=== PATIENT | female | born 1945 | race Caucasian/White ===

== ENCOUNTER 2023-03-29 17:47 | Inpatient (IN) | payer MEDICARE, MEDICAID, SELFPAY ==
--- NOTE | 2023-03-29 18:59 | HO.PM.IMCN ---
History of Present Illness Data of Consult Service Date: 03/29/23 Primary Care Provider: Unknown Physician HPI Reason for consult: Admission H&P Pt is a 78-year-old female with a PMH significant for?HTN, HLD, hypothyroidism, insulin-dependent diabetes type 2, frequent UTIs, hx of Barbara-Chavez tears in 2018, dementia unspecified, schizoaffective disorder, and bipolar disorder who is admitted to [facility] for increasing agitation. According to caregiver patient has been banging her head and feet against the wall and been much more difficult to control or take care of recently. Medical consult for admission H&P. ?Patient is seen and evaluated in her bed. Patient appears agitated, using pressured speech, often speaking nonsensically, is and is alert and oriented to self only. Patient is unable to provide accurate HPI. Chart review shows that patient vomited when she was in the ED with concern of possible 1 or 2 episodes of coffee-ground emesis. Patient's H&H remained stable during her stay at the hospital. Review of Systems Review of Systems: Unable to obtain due to patient's mentation PMFSH Social History Advance Directives: No Advance Directives Information Provided: No Meds Allergies Allergy/AdvReac Type Severity Reaction Status Date / Time No Known Allergies Allergy Verified 03/29/23 18:39 Physical Exam Vital Signs and Narrative: Vital Signs: General: AOx1, in no acute distress Resp: CTA bilaterally CVS: S1, S2, RRR GI: +BS, NT, no distention Skin: No rash Neuro: Cranial nerves II-XII grossly intact bilaterally. Motor grossly intact bilaterally Extremities: No edema Psych: Appears agitated, with pressurized speech, sometimes speaking nonsensically Assessment and Plan (1) Routine history and physical examination of adult: Status: Acute Plan Pt is a 78-year-old female with a PMH significant for?HTN, HLD, hypothyroidism, insulin-dependent diabetes type 2, frequent UTIs, hx of Barbara-Chavez tears in 2018, dementia unspecified, schizoaffective disorder, and bipolar disorder who is admitted to [facility] for increasing agitation. According to caregiver patient has been banging her head and feet against the wall and been much more difficult to control or take care of recently. Medical consult for admission H&P. ?Patient is seen and evaluated in her bed. Patient appears agitated, using pressured speech, often speaking nonsensically, is and is alert and oriented to self only. Patient is unable to provide accurate HPI. Mood disorder Plan as per Psychiatry Question of coffee-ground emesis Patient experienced vomiting with possibility of 1-2 episodes of coffee-ground emesis during hospital stay Patient with history of Barbara-Chavez tear in 2018 H&H stable, no evidence of anemia or active upper GI bleed Continue PPI, anti emetics p.r.n. HLD Continue statin GERD Continue PPI Hypothyroidism Continue levothyroxine Thank you for allowing us to participate in the care of this patient. Signing off at this time. Please let us know if there are any acute complaints or questions. Time Spent With Patient Time: Total time managing care of this patient today ____ minutes.
--- NOTE | 2023-03-29 20:00 | PC.NURSE ---
Pt A&OX1, very confused and has disorganized thoughts. She is hyperverbal, has pressured speech and does not always make sense. Pt is restless and fidgety in the bed and currently flipping through a magazine. She is not able to focus on one topic and jumps from one topic to another. . The name Magdiel triggers her . Pt on ra, lungs are clear and VSS, abdomen is large and round, skin is intact. She has non-pitting stephanie lower ext edema. Pt can be resistive to care. She was incont of urine and did not respond well to donato care. No c/o pain or N/V. Pt has 1:1 sitter at bedside. bed in low position, safety measures maintained.
[2023-03-29 20:04] VITALS: BP 152/67; PULSE 94; RESP 20; TEMP 36.2; O2SAT 95
[2023-03-30] MEDS: Prazosin HCL 1 MG CAPSULE PO (00:34)
[2023-03-30] MEDS: QUEtiapine Fumarate 25 MG TABLET PO ×3 (00:34→21:51)
[2023-03-30] MEDS: Famotidine 20 MG TABLET PO ×2 (00:34→09:34)
[2023-03-30] MEDS: hydrOXYzine HCL 25 MG TABLET PO (00:44)
[2023-03-30] MEDS: traZODone HCL 50 MG TABLET PO ×2 (00:44→21:51)
[2023-03-30 09:24] LABS: Ammonia 36 umol/L (13-55)
[2023-03-30 09:35] LABS: Estimated Average Glucose 163 mg/dL; Hemoglobin A1c % 7.3 %
[2023-03-30 09:56] LABS: Cholesterol 143 mg/dL; HDL Cholesterol 61 mg/dL; LDL Cholesterol Calculated 65 mg/dl; Triglycerides 89 mg/dL
[2023-03-30] MEDS: Cholecalciferol (Vitamin D3) 25 MCG TABLET 50 MCG PO (09:57)
[2023-03-30] MEDS: Ascorbic Acid 500 MG TABLET PO (09:57)
[2023-03-30] MEDS: Docusate Sodium 100 MG CAPSULE PO (09:57)
[2023-03-30] MEDS: Atorvastatin Calcium 20 MG TABLET PO (09:57)
[2023-03-30 10:13] LABS: Free T4 (Free Thyroxine) 1.02 ng/dL (0.71-1.85); Thyroid Stimulating Hormone 1.85 uIU/mL (0.32-4.0)
[2023-03-30 10:59] LABS: Glucose, Whole Blood 174 mg/dL (60-115)
[2023-03-30] MEDS: metFORMIN HCl 850 MG TABLET PO (12:08)
--- NOTE | 2023-03-30 14:27 | P.HPPS_ITS ---
HPI Date of Service: 03/30/23 Chief Complaint: Schizoaffective Disorder Sources of Information: patient interviewed, chart reviewed and crisis/core team assessment reviewed HPI Subjective Notes: Whittaker Warning and Conditional Voluntary Healthcare Proxy: Yes Guardianship: Yes Medical Problems Affecting Mental Status: Yes Narrative: The patient is a 78-year-old female, with a long history of schizoaffective disorder bipolar type and other several medical comorbidities transfer from [address] due to agitation. According to the crisis assessment, the patient was brought to the emergency room from caregivers in the community since she was more agitated irritable nonsensical. Over the emergency room [facility], she was assessed and a full medical workout was done and she was found that she has a UTI. CT scan and other blood work came back negative. The patient was treated medically, reassessed by Psychiatry and since the patient was not at her baseline with agitation and nonsensical behaviors she was transferring to this facility for psychiatric stabilization. The patient has a guardian, a [facility] order another documents but at this moment we have not been able to for have available does papers. I assessed the patient at bed sign and she was naked covered with a blanket, the patient refused to wear any clothes and she was nonsensical, unable to provide information, with mild psychomotor agitation. The patient was unable to understand whittaker warning or any other statement. She was referred by to the medical team to continue medical workout. Past Psychiatric History: According to the chart, the patient carries a diagnosis of schizoaffective disorder bipolar type, she has a guardian, court ordered to receive antipsychotics that she has been in the hospital several times for psychiatric conditions. At this moment the patient is a poor historian able to provide any history. Medical Evaluation Reviewed: Yes [facility] Family History: Unable to assess Social History: The patient lives in the community with several caregivers, she is a guardian a court order to receive antipsychotics. Substance History: Unable to assess Trauma History: Unable to assess Diagnostics Vital Signs (24Hr): Vital Signs - 24 hr 03/29/23 20:04 Temperature 97.2 F Pulse Rate 94 Respiratory Rate 20 Blood Pressure 152/67 H Pulse Oximetry 95 Oxygen Delivery Method Room Air Labs Labs: Laboratory Results - last 48 hr 03/30/23 03/30/23 03/30/23 08:58 08:58 08:58 POC Glucose Estimat Average Glucose 163 Hemoglobin A1c % 7.3 Ammonia 36 Triglycerides 89 Cholesterol 143 LDL Cholesterol, Calc 65 HDL Cholesterol 61 TSH 1.85 Free T4 1.02 Valproic Acid 03/30/23 03/30/23 08:58 10:54 POC Glucose 174 H Estimat Average Glucose Hemoglobin A1c % Ammonia Triglycerides Cholesterol LDL Cholesterol, Calc HDL Cholesterol TSH Free T4 Valproic Acid 21.0 L Meds/Allergies Meds Home Medications Medication Instructions Recorded Confirmed Type Lactobacillus acidophilus PO DAILY 03/30/23 History Miralax 17 g PO DAILY constipation 03/30/23 03/30/23 History Tums 500 500 mg PO QID PRN Heartburn 03/30/23 03/30/23 History acetaminophen 500 mg PO Q6-8H PRN Fever Or Pain 03/30/23 03/30/23 History ascorbic acid (vitamin C) 500 mg PO BID supplement 03/30/23 03/30/23 History atorvastatin 20 tab PO DAILY 03/30/23 03/30/23 History cholecalciferol (vitamin D3) 2,000 units PO DAILY 03/30/23 03/30/23 History clonazepam 1 mg PO BEDTIME 03/30/23 03/30/23 History clonazepam 1 mg PO DAILY PRN Anxiety 03/30/23 03/30/23 History divalproex 500 mg PO BEDTIME 03/30/23 03/30/23 History docusate sodium 100 mg PO BID 03/30/23 03/30/23 History guaifenesin 200 mg PO Q4-5H PRN Cough 03/30/23 03/30/23 History levothyroxine 25 mcg PO 03/30/23 History metformin 850 mg PO DAILY 03/30/23 03/30/23 History methenamine hippurate 1 tab PO BID UTI 03/30/23 03/30/23 History terazosin 2 mg PO BEDTIME 03/30/23 03/30/23 History Allergies Allergies Allergy/AdvReac Type Severity Reaction Status Date / Time No Known Allergies Allergy Verified 03/29/23 18:39 Mental Status Exam Mental Status Exam Patient Appearance: Disheveled and Unkempt (On hospital gowns half naked since the patient is refusing to work clothes) Patient Orientation: Person Level of Consciousness: Awake, Disoriented and Restless Patient Behavior: Guarded and Restless Mood Description: Withdrawn Affect Description: Labile Patient Cognition Impaired: Yes Ability to Follow Directions: Poor Speech Pattern: Slurred and Impoverished Hallucinations: None Delusions: Paranoid Ideation and Bizarre Thought Process: Disoriented, Incoherent and Illogical Thought Content: positive for Poverty of Content, positive for Loose Associations and positive for Thought Blocking Judgement: Poor Assessment & Plan Assessment & Plan (1) Schizoaffective disorder, bipolar type: Status: Acute Code(s): F25.0 - Schizoaffective disorder, bipolar type (2) Neurodegenerative cognitive impairment: Status: Acute Code(s): G31.9 - Degenerative disease of nervous system, unspecified Plan The patient is an elderly female with a past history of schizoaffective disorder bipolar type, with the legal guardian a corporate receive antipsychotics in the community referred to the emergency room due to increased agitation and nonsensical behaviors. When she was in the emergency room of [facility] she was diagnosed with a UTI and treated with antibiotics. So far her medical workout came back within normal limits but she remains grossly psychotic and disorganized, unable to understand lab warning and at this moment we do not have the guardian paperwork for the court ordered to receive antipsychotics. Plan 1. Gather collateral information. 2. Continue with antipsychotics and other medications prescribed admitted for Hospital. I assume that there full feeling the court order for antipsychotics. 3. Continue with medical workout. 4. Reassessment with results. 5. One-to-one observation for safety Patient educated on: diagnosis and medication risk/benefits Informed Consent: does not understand Reason for continued inpatient stay Substantial Risk for: harm to self, harm to others, inability to function, rapid decompensation and med/psych decompensation Statement Statement: I have reviewed the history and physical and performed a pertinent examination on my patient. No changes have occurred unless specified. If the History and Physical was not performed prior to admission, the Hospitalist's service will be consulted for completing the admission physical. Time Spent With Patient Time: Total time managing care of this patient today __45__ minutes.
[2023-03-30] MEDS: Divalproex Sodium ER 500 MG TAB.ER.24H PO (21:51)
[2023-03-30] MEDS: Doxazosin Mesylate 2 MG TABLET PO (21:51)
[2023-03-30] MEDS: clonazePAM 1 MG TABLET PO (21:51)
[2023-03-31 08:14] LABS: Glucose, Whole Blood 215 mg/dL (60-115)
[2023-03-31 08:15] VITALS: BP 118/87; PULSE 114; RESP 20; TEMP 36.1; O2SAT 94
[2023-03-31] MEDS: Cholecalciferol (Vitamin D3) 25 MCG TABLET 50 MCG PO (08:15)
[2023-03-31] MEDS: Docusate Sodium 100 MG CAPSULE PO ×2 (08:15→21:05)
[2023-03-31] MEDS: metFORMIN HCl 850 MG TABLET PO (08:15)
[2023-03-31] MEDS: Levothyroxine Sodium 25 MCG TABLET PO (08:15)
[2023-03-31] MEDS: Famotidine 20 MG TABLET PO ×2 (08:16→21:04)
[2023-03-31] MEDS: QUEtiapine Fumarate 25 MG TABLET PO (08:16)
[2023-03-31] MEDS: Atorvastatin Calcium 20 MG TABLET PO (08:16)
[2023-03-31] MEDS: Ascorbic Acid 500 MG TABLET PO ×2 (08:16→21:04)
[2023-03-31] MEDS: polyethylene glycoL 3350 17 GM POWD.PACK PO (08:23)
[2023-03-31 08:56] LABS: Estimated Glomerular Filt Rate > 60
--- NOTE | 2023-03-31 09:27 | P.PNPSI_ITS ---
Subjective Subjective Date of Service: 03/31/23 Reason For Visit: Schizoaffective Disorder Subjective Notes: Section 12B Healthcare Proxy: Yes Guardianship: Yes Interim History: The nursing staff reported the patient had been incontinent of urine and feces, she had been nonsensical. DDS is involved and they will contact as pretty soon. Today on interview the patient was grossly confused unable to elaborate a clear it statement. I will try to gather more collateral information in getting the Che order and the guardianship paperwork. At this moment, I do not have information about what are the approved antipsychotics but apparently, she was taking over 600 mg of Seroquel daiily. I will increase it up to 100 mg po tid.. Mental Status Exam Mental Status Exam Patient Appearance: Disheveled, Inappropriate and Unkempt Patient Orientation: Person and Situation Level of Consciousness: Awake and Appropriate Patient Behavior: Passive and Restless Mood Description: Apprehensive Affect Description: Labile Patient Cognition Impaired: Yes Ability to Follow Directions: Fair Speech Pattern: Impoverished, Difficulty Finding Words and Garbled Hallucinations: None Delusions: Ideas of Reference Thought Process: Disoriented, Incoherent and Illogical Thought Content: positive for Poverty of Content, positive for Loose Associations and positive for Thought Blocking Judgement: Fair Diagnostics Labs 03/31/23 08:33 Labs: Laboratory Results - last 48 hr 03/30/23 03/30/23 03/30/23 08:58 08:58 08:58 Creatinine Estim Creat Clear Calc Estimated GFR POC Glucose Estimat Average Glucose 163 Hemoglobin A1c % 7.3 Ammonia 36 Triglycerides 89 Cholesterol 143 LDL Cholesterol, Calc 65 HDL Cholesterol 61 TSH 1.85 Free T4 1.02 Valproic Acid 03/30/23 03/30/23 03/31/23 08:58 10:54 08:09 Creatinine Estim Creat Clear Calc Estimated GFR POC Glucose 174 H 215 H Estimat Average Glucose Hemoglobin A1c % Ammonia Triglycerides Cholesterol LDL Cholesterol, Calc HDL Cholesterol TSH Free T4 Valproic Acid 21.0 L 03/31/23 08:33 Creatinine 0.70 Estim Creat Clear Calc TNP Estimated GFR > 60 POC Glucose Estimat Average Glucose Hemoglobin A1c % Ammonia Triglycerides Cholesterol LDL Cholesterol, Calc HDL Cholesterol TSH Free T4 Valproic Acid Medications Medications Current Medications Acetaminophen (Acetaminophen 325 Mg Tablet) 650 mg PO Q6H PRN PRN Reason: Headache/Pain Mild Scale (1-3) Al Hydroxide/Mg Hydroxide (Magnesium Hydrox/Alum Hydrox 30 Ml Oral.Susp) 30 ml PO Q6H PRN PRN Reason: Heartburn/Nausea Ascorbic Acid (Ascorbic Acid 500 Mg Tablet) 500 mg PO BID [facility] Last Admin: 03/31/23 08:16 Dose: 500 mg Atorvastatin Calcium (Atorvastatin Calcium 20 Mg Tablet) 20 mg PO DAILY [facility] Last Admin: 03/31/23 08:16 Dose: 20 mg Calcium Carbonate (Calcium Carbonate 750 Mg Tab.Chew) 500 mg PO QID PRN PRN Reason: Heartburn Clonazepam (Clonazepam 1 Mg Tablet) 1 mg PO BEDTIME [facility] Last Admin: 03/30/23 21:51 Dose: 1 mg Clonazepam (Clonazepam 1 Mg Tablet) 1 mg PO DAILY PRN PRN Reason: Anxiety Divalproex Sodium (Divalproex Sodium Er 500 Mg Tab.Er.24h) 500 mg PO BEDTIME [facility] Last Admin: 03/30/23 21:51 Dose: 500 mg Docusate Sodium (Docusate Sodium 100 Mg Capsule) 100 mg PO BID [facility] Last Admin: 03/31/23 08:15 Dose: 100 mg Doxazosin Mesylate (Doxazosin Mesylate 2 Mg Tablet) 2 mg PO BEDTIME [facility] Last Admin: 03/30/23 21:51 Dose: 2 mg Famotidine (Famotidine 20 Mg Tablet) 20 mg PO BID [facility] Last Admin: 03/31/23 08:16 Dose: 20 mg Guaifenesin (Guaifenesin 200 Mg/10 Ml 10 Ml Liquid) 10 ml PO Q4H PRN PRN Reason: Cough Hydroxyzine HCl (Hydroxyzine Hcl 25 Mg Tablet) 25 mg PO Q6H PRN PRN Reason: Anxiety Last Admin: 03/30/23 00:44 Dose: 25 mg Levothyroxine Sodium (Levothyroxine Sodium 25 Mcg Tablet) 25 mcg PO DAILY@0600 [facility] Last Admin: 03/31/23 08:15 Dose: 25 mcg Magnesium Hydroxide (Milk Of Magnesia 30 Ml Oral.Susp) 30 ml PO DAILY PRN PRN Reason: Constipation Metformin HCl (Metformin Hcl 850 Mg Tablet) 850 mg PO DAILY [facility] Last Admin: 03/31/23 08:15 Dose: 850 mg Non-Formulary Medication (Methenamine Hippurate) 1 tab PO BID [facility] Polyethylene Glycol (Polyethylene Glycol 3350 17 Gm Powd.Pack) 17 gm PO DAILY [facility] Last Admin: 03/31/23 08:23 Dose: 17 gm Quetiapine Fumarate (Quetiapine Fumarate 25 Mg Tablet) 25 mg PO BID [facility] Last Admin: 03/31/23 08:16 Dose: 25 mg Trazodone HCl (Trazodone Hcl 50 Mg Tablet) 50 mg PO BEDTIME MRX1 PRN PRN Reason: Insomnia Last Admin: 03/30/23 21:51 Dose: 50 mg Vitamin D (Cholecalciferol (Vitamin D3) 25 Mcg Tablet) 50 mcg PO DAILY [facility] Last Admin: 03/31/23 08:15 Dose: 50 mcg Allergies Allergies Allergy/AdvReac Type Severity Reaction Status Date / Time No Known Allergies Allergy Verified 03/29/23 18:39 Assessment & Plan Assessment & Plan (1) Schizoaffective disorder, bipolar type: Status: Acute Code(s): F25.0 - Schizoaffective disorder, bipolar type (2) Neurodegenerative cognitive impairment: Status: Acute Code(s): G31.9 - Degenerative disease of nervous system, unspecified Plan The patient is an elderly female with a past history of schizoaffective disorder bipolar type, with the legal guardian a corporate receive antipsychotics in the community referred to the emergency room due to increased agitation and nonsensical behaviors. When she was in the emergency room of [facility] she was diagnosed with a UTI and treated with antibiotics. So far her medical workout came back within normal limits but she remains grossly psychotic and disorganized, unable to understand lab warning and at this moment we do not have the guardian paperwork for the court ordered to r eceive antipsychotics. Plan 1. Gather collateral information. 2. Continue with antipsychotics and other medications prescribed admitted for Hospital. I assume that there full feeling the court order for antipsychotics. 3. Continue with medical workout. 4. Reassessment with results. 5. One-to-one observation for safety 6. Increase Seroquel up to 100 mg po tid. Reason for continued inpatient stay Substantial Risk for: inability to function, rapid decompensation and med/psych decompensation Time Spent With Patient Time: Total time managing care of this patient today __20__ minutes.
[2023-03-31] MEDS: QUEtiapine Fumarate 100 MG TABLET PO ×2 (14:19→21:05)
[2023-03-31 18:00] VITALS: BP 143/78; PULSE 110; RESP 16; TEMP 36.3; O2SAT 97
[2023-03-31] MEDS: clonazePAM 1 MG TABLET PO (21:04)
[2023-03-31] MEDS: Divalproex Sodium ER 500 MG TAB.ER.24H PO (21:04)
[2023-03-31] MEDS: Doxazosin Mesylate 2 MG TABLET PO (21:05)
[2023-03-31] MEDS: traZODone HCL 50 MG TABLET PO (21:05)
[2023-03-31] MEDS: Acetaminophen 325 MG TABLET 650 MG PO (21:05)
[2023-03-31] MEDS: hydrOXYzine HCL 25 MG TABLET PO (21:05)
[2023-03-31 22:24] LABS: Glucose, Whole Blood 199 mg/dL (60-115)
[2023-04-01] MEDS: Levothyroxine Sodium 25 MCG TABLET PO (05:36)
[2023-04-01 08:41] VITALS: BP 124/63; PULSE 93; RESP 18; TEMP 36.4; O2SAT 95
[2023-04-01] MEDS: QUEtiapine Fumarate 100 MG TABLET PO ×3 (09:19→21:06)
[2023-04-01] MEDS: Famotidine 20 MG TABLET PO ×2 (09:19→21:05)
[2023-04-01] MEDS: metFORMIN HCl 850 MG TABLET PO (09:19)
[2023-04-01] MEDS: Cholecalciferol (Vitamin D3) 25 MCG TABLET 50 MCG PO (09:19)
[2023-04-01] MEDS: clonazePAM 1 MG TABLET PO ×2 (09:19→21:06)
[2023-04-01] MEDS: Atorvastatin Calcium 20 MG TABLET PO (09:19)
[2023-04-01] MEDS: Docusate Sodium 100 MG CAPSULE PO ×2 (09:19→21:06)
[2023-04-01] MEDS: hydrOXYzine HCL 25 MG TABLET PO ×2 (09:19→21:06)
[2023-04-01] MEDS: Ascorbic Acid 500 MG TABLET PO ×2 (09:19→21:06)
[2023-04-01] MEDS: polyethylene glycoL 3350 17 GM POWD.PACK PO (09:22)
--- NOTE | 2023-04-01 13:30 | HO.PSYCHPN ---
Subjective Subjective Date of Service: 04/01/23 Reason For Visit: Schizoaffective Disorder Subjective Notes: Section 12B (expires 04/03/23) Guardianship: Yes Interim History: Met with patient. Noted Che order and guardianship. Also noted Section 12 which expires on 04/03/2023. Discussed with Nursing. Has been restless impulsive and therefore on one-to-one observation. Slept okay. Accepting medications. With senior technical writer is difficult to make out but reports she wants to go home. States she has been here for a very long time. No clear idea of circumstances of admission, time frame or place. No evidence of depression SI or HI. Medication Compliance: Yes Side effects from medications: No Attending Groups: No Review of Systems Acute medical concerns: No Review of Systems Review of Systems Yes Unobtainable due to mental status Mental Status Exam Mental Status Exam Patient Appearance: Disheveled, Inappropriate and Unkempt Patient Orientation: Person and Situation Level of Consciousness: Awake and Appropriate Patient Behavior: Passive and Restless Mood Description: Apprehensive Affect Description: Labile Patient Cognition Impaired: Yes Ability to Follow Directions: Fair Speech Pattern: Impoverished, Difficulty Finding Words and Garbled Hallucinations: None Thought Process: Disoriented, Incoherent and Illogical Thought Content: positive for Poverty of Content, positive for Loose Associations and positive for Thought Blocking Abnormal Motor Activity Signs and Symptoms: Restlessness ( Appears to have baseline arm movements over /almost tic-like) Judgement: Fair Diagnostics Vital Signs (24Hr): Vital Signs - 24 hr 03/31/23 18:00 04/01/23 08:41 Temperature 97.3 F 97.6 F Pulse Rate 110 H 93 Respiratory Rate 16 18 Blood Pressure 143/78 H 124/63 Pulse Oximetry 97 95 Oxygen Delivery Method Room Air Room Air Labs 03/31/23 08:33 Labs: Laboratory Results - last 48 hr 03/31/23 03/31/23 03/31/23 08:09 08:33 22:18 Creatinine 0.70 Estim Creat Clear Calc TNP Estimated GFR > 60 POC Glucose 215 H 199 H Medications Medications Current Medications Acetaminophen (Acetaminophen 325 Mg Tablet) 650 mg PO Q6H PRN PRN Reason: Headache/Pain Mild Scale (1-3) Last Admin: 03/31/23 21:05 Dose: 650 mg Al Hydroxide/Mg Hydroxide (Magnesium Hydrox/Alum Hydrox 30 Ml Oral.Susp) 30 ml PO Q6H PRN PRN Reason: Heartburn/Nausea Ascorbic Acid (Ascorbic Acid 500 Mg Tablet) 500 mg PO BID [facility] Last Admin: 04/01/23 09:19 Dose: 500 mg Atorvastatin Calcium (Atorvastatin Calcium 20 Mg Tablet) 20 mg PO DAILY [facility] Last Admin: 04/01/23 09:19 Dose: 20 mg Calcium Carbonate (Calcium Carbonate 750 Mg Tab.Chew) 500 mg PO QID PRN PRN Reason: Heartburn Clonazepam (Clonazepam 1 Mg Tablet) 1 mg PO BEDTIME [facility] Last Admin: 03/31/23 21:04 Dose: 1 mg Clonazepam (Clonazepam 1 Mg Tablet) 1 mg PO DAILY PRN PRN Reason: Anxiety Last Admin: 04/01/23 09:19 Dose: 1 mg Divalproex Sodium (Divalproex Sodium Er 500 Mg Tab.Er.24h) 500 mg PO BEDTIME [facility] Last Admin: 03/31/23 21:04 Dose: 500 mg Docusate Sodium (Docusate Sodium 100 Mg Capsule) 100 mg PO BID [facility] Last Admin: 04/01/23 09:19 Dose: 100 mg Doxazosin Mesylate (Doxazosin Mesylate 2 Mg Tablet) 2 mg PO BEDTIME [facility] Last Admin: 03/31/23 21:05 Dose: 2 mg Famotidine (Famotidine 20 Mg Tablet) 20 mg PO BID [facility] Last Admin: 04/01/23 09:19 Dose: 20 mg Guaifenesin (Guaifenesin 200 Mg/10 Ml 10 Ml Liquid) 10 ml PO Q4H PRN PRN Reason: Cough Hydroxyzine HCl (Hydroxyzine Hcl 25 Mg Tablet) 25 mg PO Q6H PRN PRN Reason: Anxiety Last Admin: 04/01/23 09:19 Dose: 25 mg Levothyroxine Sodium (Levothyroxine Sodium 25 Mcg Tablet) 25 mcg PO DAILY@0600 [facility] Last Admin: 04/01/23 05:36 Dose: 25 mcg Magnesium Hydroxide (Milk Of Magnesia 30 Ml Oral.Susp) 30 ml PO DAILY PRN PRN Reason: Constipation Metformin HCl (Metformin Hcl 850 Mg Tablet) 850 mg PO DAILY [facility] Last Admin: 04/01/23 09:19 Dose: 850 mg Polyethylene Glycol (Polyethylene Glycol 3350 17 Gm Powd.Pack) 17 gm PO DAILY [facility] Last Admin: 04/01/23 09:22 Dose: 17 gm Quetiapine Fumarate (Quetiapine Fumarate 100 Mg Tablet) 100 mg PO TID [facility] Last Admin: 04/01/23 09:19 Dose: 100 mg Trazodone HCl (Trazodone Hcl 50 Mg Tablet) 50 mg PO BEDTIME MRX1 PRN PRN Reason: Insomnia Last Admin: 03/31/23 21:05 Dose: 50 mg Vitamin D (Cholecalciferol (Vitamin D3) 25 Mcg Tablet) 50 mcg PO DAILY [facility] Last Admin: 04/01/23 09:19 Dose: 50 mcg Allergies Allergies Allergy/AdvReac Type Severity Reaction Status Date / Time No Known Allergies Allergy Verified 03/29/23 18:39 Assessment & Plan Assessment & Plan (1) Schizoaffective disorder, bipolar type: Status: Acute Code(s): F25.0 - Schizoaffective disorder, bipolar type (2) Neurodegenerative cognitive impairment: Status: Acute Code(s): G31.9 - Degenerative disease of nervous system, unspecified Plan The patient is an elderly female with a past history of schizoaffective disorder bipolar type, with the legal guardian a corporate receive antipsychotics in the community referred to the emergency room due to increased agitation and nonsensical behaviors. When she was in the emergency room of [facility] she was diagnosed with a UTI and treated with antibiotics. So far her medical workout came back within normal limits but she remains grossly psychotic and disorganized, unable to understand lab warning and at this moment we do not have the guardian paperwork for the court ordered to receive antipsychotics. Plan 1. Gather collateral information. 2. Continue with antipsychotics and other medications prescribed admitted for Hospital. I assume that there full feeling the court order for antipsychotics. 3. Continue with medical workout. 4. Reassessment with results. 5. One-to-one observation for safety 6. Increase Seroquel up to 100 mg po tid. 04/01/2023: No changes to current plan. Reason for continued inpatient stay Substantial Risk for: inability to function Time Spent With Patient Time: Total time managing care of this patient today ____ minutes.
[2023-04-01 18:00] VITALS: BP 150/75; PULSE 86; RESP 18; TEMP 36.8; O2SAT 97
[2023-04-01] MEDS: Divalproex Sodium ER 500 MG TAB.ER.24H PO (21:06)
[2023-04-01] MEDS: Doxazosin Mesylate 2 MG TABLET PO (21:06)
[2023-04-01] MEDS: Acetaminophen 325 MG TABLET 650 MG PO (21:06)
[2023-04-02] MEDS: Levothyroxine Sodium 25 MCG TABLET PO (05:27)
[2023-04-02 08:46] VITALS: BP 132/63; PULSE 80; RESP 20; TEMP 35.8; O2SAT 95
[2023-04-02] MEDS: QUEtiapine Fumarate 100 MG TABLET PO ×3 (09:25→21:12)
[2023-04-02] MEDS: Famotidine 20 MG TABLET PO ×2 (09:25→21:12)
[2023-04-02] MEDS: clonazePAM 1 MG TABLET PO ×2 (09:25→21:11)
[2023-04-02] MEDS: Ascorbic Acid 500 MG TABLET PO ×2 (09:25→21:11)
[2023-04-02] MEDS: Atorvastatin Calcium 20 MG TABLET PO (09:25)
[2023-04-02] MEDS: Cholecalciferol (Vitamin D3) 25 MCG TABLET 50 MCG PO (09:25)
[2023-04-02] MEDS: hydrOXYzine HCL 25 MG TABLET PO (09:26)
[2023-04-02] MEDS: polyethylene glycoL 3350 17 GM POWD.PACK PO (09:26)
[2023-04-02] MEDS: Docusate Sodium 100 MG CAPSULE PO ×2 (09:26→21:11)
[2023-04-02] MEDS: metFORMIN HCl 850 MG TABLET PO (09:26)
--- NOTE | 2023-04-02 10:50 | PC.NURSE ---
Addendum entered by Tiera Blanco RN 04/02/23 12:26: Increased POCs reported to clinical coordinator SARIKA Lemon and will pass along to primary MD in teams tomorrow. Original Note: Dr. Parker notified [address] Parker requested that this automotive service writer pass along to primary team tomorrow. Will report to clinical coordinator SARIKA Lemon to notify primary MD in teams tomorrow.
--- NOTE | 2023-04-02 12:25 | HO.PSYCHPN ---
Subjective Subjective Date of Service: 04/02/23 Reason For Visit: Schizoaffective Disorder Subjective Notes: Section 12B Medical Problems Affecting Mental Status: No Interim History: Met with patient. Noted [place] order and guardianship. Also noted Section 12 which expires on 04/03/2023. Discussed with Nursing. Less restless and less movements. Slept better. Accepting medications. With keno writer/runner is difficult to make out but eager to go home. Watching Mass on TV. No evidence of depression SI or HI. Medication Compliance: Yes Side effects from medications: No Attending Groups: Intermittent Review of Systems Acute medical concerns: No Review of Systems Review of Systems Yes Unobtainable due to mental status Mental Status Exam Mental Status Exam Patient Appearance: Disheveled, Inappropriate and Unkempt Patient Orientation: Person and Situation Level of Consciousness: Awake and Appropriate Patient Behavior: Passive and Restless Mood Description: Apprehensive Affect Description: Labile Patient Cognition Impaired: Yes Ability to Follow Directions: Fair Speech Pattern: Impoverished, Difficulty Finding Words and Garbled Diagnostics Vital Signs (24Hr): Vital Signs - 24 hr 04/01/23 18:00 04/02/23 08:46 Temperature 98.3 F 96.5 F L Pulse Rate 86 80 Respiratory Rate 18 20 Blood Pressure 150/75 H 132/63 Pulse Oximetry 97 95 Oxygen Delivery Method Room Air Room Air Labs 03/31/23 08:33 Labs: Laboratory Results - last 48 hr 03/31/23 04/01/23 04/02/23 22:18 20:00 07:46 POC Glucose 199 H 285 H 246 H Medications Medications Current Medications Acetaminophen (Acetaminophen 325 Mg Tablet) 650 mg PO Q6H PRN PRN Reason: Headache/Pain Mild Scale (1-3) Last Admin: 04/01/23 21:06 Dose: 650 mg Al Hydroxide/Mg Hydroxide (Magnesium Hydrox/Alum Hydrox 30 Ml Oral.Susp) 30 ml PO Q6H PRN PRN Reason: Heartburn/Nausea Ascorbic Acid (Ascorbic Acid 500 Mg Tablet) 500 mg PO BID [facility] Last Admin: 04/02/23 09:25 Dose: 500 mg Atorvastatin Calcium (Atorvastatin Calcium 20 Mg Tablet) 20 mg PO DAILY [facility] Last Admin: 04/02/23 09:25 Dose: 20 mg Calcium Carbonate (Calcium Carbonate 750 Mg Tab.Chew) 500 mg PO QID PRN PRN Reason: Heartburn Clonazepam (Clonazepam 1 Mg Tablet) 1 mg PO BEDTIME [facility] Last Admin: 04/01/23 21:06 Dose: 1 mg Clonazepam (Clonazepam 1 Mg Tablet) 1 mg PO DAILY PRN PRN Reason: Anxiety Last Admin: 04/02/23 09:25 Dose: 1 mg Divalproex Sodium (Divalproex Sodium Er 500 Mg Tab.Er.24h) 500 mg PO BEDTIME [facility] Last Admin: 04/01/23 21:06 Dose: 500 mg Docusate Sodium (Docusate Sodium 100 Mg Capsule) 100 mg PO BID [facility] Last Admin: 04/02/23 09:26 Dose: 100 mg Doxazosin Mesylate (Doxazosin Mesylate 2 Mg Tablet) 2 mg PO BEDTIME [facility] Last Admin: 04/01/23 21:06 Dose: 2 mg Famotidine (Famotidine 20 Mg Tablet) 20 mg PO BID [facility] Last Admin: 04/02/23 09:25 Dose: 20 mg Guaifenesin (Guaifenesin 200 Mg/10 Ml 10 Ml Liquid) 10 ml PO Q4H PRN PRN Reason: Cough Hydroxyzine HCl (Hydroxyzine Hcl 25 Mg Tablet) 25 mg PO Q6H PRN PRN Reason: Anxiety Last Admin: 04/02/23 09:26 Dose: 25 mg Levothyroxine Sodium (Levothyroxine Sodium 25 Mcg Tablet) 25 mcg PO DAILY@0600 [facility] Last Admin: 04/02/23 05:27 Dose: 25 mcg Magnesium Hydroxide (Milk Of Magnesia 30 Ml Oral.Susp) 30 ml PO DAILY PRN PRN Reason: Constipation Metformin HCl (Metformin Hcl 850 Mg Tablet) 850 mg PO DAILY [facility] Last Admin: 04/02/23 09:26 Dose: 850 mg Polyethylene Glycol (Polyethylene Glycol 3350 17 Gm Powd.Pack) 17 gm PO DAILY [facility] Last Admin: 04/02/23 09:26 Dose: 17 gm Quetiapine Fumarate (Quetiapine Fumarate 100 Mg Tablet) 100 mg PO TID [facility] Last Admin: 04/02/23 09:25 Dose: 100 mg Trazodone HCl (Trazodone Hcl 50 Mg Tablet) 50 mg PO BEDTIME [facility]X1 PRN PRN Reason: Insomnia Last Admin: 03/31/23 21:05 Dose: 50 mg Vitamin D (Cholecalciferol (Vitamin D3) 25 Mcg Tablet) 50 mcg PO DAILY [facility] Last Admin: 04/02/23 09:25 Dose: 50 mcg Allergies Allergies Allergy/AdvReac Type Severity Reaction Status Date / Time No Known Allergies Allergy Verified 03/29/23 18:39 Assessment & Plan Assessment & Plan (1) Schizoaffective disorder, bipolar type: Status: Acute Code(s): F25.0 - Schizoaffective disorder, bipolar type (2) Neurodegenerative cognitive impairment: Status: Acute Code(s): G31.9 - Degenerative disease of nervous system, unspecified Plan The patient is an elderly female with a past history of schizoaffective disorder bipolar type, with the legal guardian a corporate receive antipsychotics in the community referred to the emergency room due to increased agitation and nonsensical behaviors. When she was in the emergency room of [facility] she was diagnosed with a UTI and treated with antibiotics. So far her medical workout came back within normal limits but she remains grossly psychotic and disorganized, unable to understand lab warning and at this moment we do not have the guardian paperwork for the court ordered to receive antipsychotics. Plan 1. Gather collateral information. 2. Continue with antipsychotics and other medications prescribed admitted for Hospital. I assume that there full feeling the court order for antipsychotics. 3. Continue with medical workout. 4. Reassessment with results. 5. One-to-one observation for safety 6. Increase Seroquel up to 100 mg po tid. 04/02/2023: No changes to current plan. Reason for continued inpatient stay Substantial Risk for: inability to function Time Spent With Patient Time: Total time managing care of this patient today ____ minutes.
--- NOTE | 2023-04-02 17:21 | PC.NURSE ---
Poppy was noted to have significant decrease in psychomotor agitation and decrease in impulsivity. Dr. Parker notified and 1:1 continuous observation changed to five minute checks. Poppy likes Ensure however has hx of DM II, dietary order placed to determine appropriate supplements (? Glucerna). Poppy has been drinking Ensure with meals.
[2023-04-02 18:00] VITALS: BP 151/66; PULSE 88; RESP 18; TEMP 36.7; O2SAT 97
[2023-04-02] MEDS: Divalproex Sodium ER 500 MG TAB.ER.24H PO (21:11)
[2023-04-02] MEDS: Doxazosin Mesylate 2 MG TABLET PO (21:12)
[2023-04-03] MEDS: Levothyroxine Sodium 25 MCG TABLET PO (05:42)
[2023-04-03 08:20] VITALS: BP 144/61; PULSE 84; RESP 18; TEMP 36.2; O2SAT 96
[2023-04-03] MEDS: Atorvastatin Calcium 20 MG TABLET PO (09:02)
[2023-04-03] MEDS: Cholecalciferol (Vitamin D3) 25 MCG TABLET 50 MCG PO (09:02)
[2023-04-03] MEDS: Famotidine 20 MG TABLET PO ×2 (09:02→20:51)
[2023-04-03] MEDS: Ascorbic Acid 500 MG TABLET PO ×2 (09:03→20:51)
[2023-04-03] MEDS: Docusate Sodium 100 MG CAPSULE PO ×2 (09:03→20:52)
[2023-04-03] MEDS: metFORMIN HCl 850 MG TABLET PO (09:04)
[2023-04-03] MEDS: polyethylene glycoL 3350 17 GM POWD.PACK PO (09:04)
--- NOTE | 2023-04-03 12:16 | HO.PSYCHPN ---
Subjective Subjective Date of Service: 04/03/23 Reason For Visit: Schizoaffective Disorder Subjective Notes: Section 7 and Section 8 Interim History: The nursing staff reported the patient slept 8 hours, she had been fully compliant with treatment. At this moment she is on 5 minutes checks since the patient was agitated. The social service director reported that her court ordered for treatment has but we need to filed for Section 7 and 8 since she is unable to sign by herself. We will try to gather more collateral information such as her guardianship and other legal paperwork. On interview the patient is pleasantly confused, easily redirectable. We are increasing his Seroquel up to 100 mg p.o. b.i.d. and 200 mg p.o. q.h.s.. According to records she was on over 600 mg a day. Mental Status Exam Mental Status Exam Patient Appearance: Well Grooomed Patient Orientation: Person Level of Consciousness: Awake and Appropriate Patient Behavior: Guarded and Passive Mood Description: Withdrawn Affect Description: Constricted Patient Cognition Impaired: Yes Ability to Follow Directions: Fair Speech Pattern: Clear Hallucinations: None Delusions: Paranoid Ideation Thought Process: Racing and Distracted Thought Content: positive for [place] and positive for Thought Blocking Judgement: Poor Diagnostics Vital Signs (24Hr): Vital Signs - 24 hr 04/02/23 18:00 04/03/23 08:20 Temperature 98.1 F 97.2 F Pulse Rate 88 84 Respiratory Rate 18 18 Blood Pressure 151/66 H 144/61 H Pulse Oximetry 97 96 Oxygen Delivery Method Room Air Room Air Labs 03/31/23 08:33 Labs: Laboratory Results - last 48 hr 04/01/23 04/02/23 04/02/23 20:00 07:46 21:07 POC Glucose 285 H 246 H 294 H 04/03/23 08:01 POC Glucose 278 H Medications Medications Current Medications Acetaminophen (Acetaminophen 325 Mg Tablet) 650 mg PO Q6H PRN PRN Reason: Headache/Pain Mild Scale (1-3) Last Admin: 04/01/23 21:06 Dose: 650 mg Al Hydroxide/Mg Hydroxide (Magnesium Hydrox/Alum Hydrox 30 Ml Oral.Susp) 30 ml PO Q6H PRN PRN Reason: Heartburn/Nausea Ascorbic Acid (Ascorbic Acid 500 Mg Tablet) 500 mg PO BID [facility] Last Admin: 04/03/23 09:03 Dose: 500 mg Atorvastatin Calcium (Atorvastatin Calcium 20 Mg Tablet) 20 mg PO DAILY [facility] Last Admin: 04/03/23 09:02 Dose: 20 mg Calcium Carbonate (Calcium Carbonate 750 Mg Tab.Chew) 500 mg PO QID PRN PRN Reason: Heartburn Clonazepam (Clonazepam 1 Mg Tablet) 1 mg PO BEDTIME [facility] Last Admin: 04/02/23 21:11 Dose: 1 mg Clonazepam (Clonazepam 1 Mg Tablet) 1 mg PO DAILY PRN PRN Reason: Anxiety Last Admin: 04/02/23 09:25 Dose: 1 mg Divalproex Sodium (Divalproex Sodium Er 500 Mg Tab.Er.24h) 500 mg PO BEDTIME [facility] Last Admin: 04/02/23 21:11 Dose: 500 mg Docusate Sodium (Docusate Sodium 100 Mg Capsule) 100 mg PO BID [facility] Last Admin: 04/03/23 09:03 Dose: 100 mg Doxazosin Mesylate (Doxazosin Mesylate 2 Mg Tablet) 2 mg PO BEDTIME [facility] Last Admin: 04/02/23 21:12 Dose: 2 mg Famotidine (Famotidine 20 Mg Tablet) 20 mg PO BID [facility] Last Admin: 04/03/23 09:02 Dose: 20 mg Guaifenesin (Guaifenesin 200 Mg/10 Ml 10 Ml Liquid) 10 ml PO Q4H PRN PRN Reason: Cough Hydroxyzine HCl (Hydroxyzine Hcl 25 Mg Tablet) 25 mg PO Q6H PRN PRN Reason: Anxiety Last Admin: 04/02/23 09:26 Dose: 25 mg Levothyroxine Sodium (Levothyroxine Sodium 25 Mcg Tablet) 25 mcg PO DAILY@0600 [facility] Last Admin: 04/03/23 05:42 Dose: 25 mcg Magnesium Hydroxide (Milk Of Magnesia 30 Ml Oral.Susp) 30 ml PO DAILY PRN PRN Reason: Constipation Metformin HCl (Metformin Hcl 850 Mg Tablet) 850 mg PO DAILY [facility] Last Admin: 04/03/23 09:04 Dose: 850 mg Polyethylene Glycol (Polyethylene Glycol 3350 17 Gm Powd.Pack) 17 gm PO DAILY [facility] Last Admin: 04/03/23 09:04 Dose: 17 gm Quetiapine Fumarate (Quetiapine Fumarate 100 Mg Tablet) 100 mg PO BID@0800,1700 [facility] Quetiapine Fumarate (Quetiapine Fumarate 200 Mg Tablet) 200 mg PO BEDTIME [facility] Trazodone HCl (Trazodone Hcl 50 Mg Tablet) 50 mg PO BEDTIME MRX1 PRN PRN Reason: Insomnia Last Admin: 03/31/23 21:05 Dose: 50 mg Vitamin D (Cholecalciferol (Vitamin D3) 25 Mcg Tablet) 50 mcg PO DAILY [facility] Last Admin: 04/03/23 09:02 Dose: 50 mcg Allergies Allergies Allergy/AdvReac Type Severity Reaction Status Date / Time No Known Allergies Allergy Verified 03/29/23 18:39 Assessment & Plan Assessment & Plan (1) Schizoaffective disorder, bipolar type: Status: Acute Code(s): F25.0 - Schizoaffective disorder, bipolar type (2) Neurodegenerative cognitive impairment: Status: Acute Code(s): G31.9 - Degenerative disease of nervous system, unspecified Plan The patient is an elderly female with a past history of schizoaffective disorder bipolar type, with the legal guardian a corporate receive antipsychotics in the community referred to the emergency room due to increased agitation and nonsensical behaviors. When she was in the emergency room of [facility] she was diagnosed with a UTI and treated with antibiotics. So far her medical workout came back within normal limits but she remains grossly psychotic and disorganized, unable to understand lab warning and at this moment we do not have the guardian paperwork for the court ordered to receive antipsychotics. Plan 1. Gather collateral information. 2. Continue with antipsychotics and other medications prescribed admitted for Hospital. I assume that there full feeling the court order for antipsychotics. 3. Continue with medical workout. 4. Reassessment with results. 5. One-to-one observation for safety 6. Increase Seroquel up to 100 mg po tid on March 30. Seroquel has been increased on April 03 up to 100 mg p.o. b.i.d. and 200 mg p.o. q.h.s.. Reason for continued inpatient stay Substantial Risk for: inability to function, rapid decompensation and med/psych decompensation Time Spent With Patient Time: Total time managing care of this patient today __20__ minutes.
--- NOTE | 2023-04-03 14:01 | MHC.CLN ---
NUTRITION CONSULT FOR SUPPLEMENT. PATIENT LIKES ENSURE SUPPLEMENT AND WILL TAKE WHEN PO LESS THTN 50% AT MEALS. RECENT BLOOD SUGARS ELEVATED AND TAKES METFORMIN. CONTINUE REGULAR DIET TO PROMOTE PO INTAKE. ADD ENSURE MAX BID TO PROVIDE 300 KCALS, 60 G PROTEIN. THIS IS A LOWER CARBOHYDRATE. PRODUCT.
[2023-04-03 18:00] VITALS: BP 159/72; PULSE 93; RESP 18; TEMP 36.5; O2SAT 97
[2023-04-03] MEDS: Divalproex Sodium ER 500 MG TAB.ER.24H PO (20:51)
[2023-04-03] MEDS: hydrOXYzine HCL 25 MG TABLET PO (20:52)
[2023-04-03] MEDS: clonazePAM 1 MG TABLET PO (20:52)
[2023-04-03] MEDS: Acetaminophen 325 MG TABLET 650 MG PO (20:52)
[2023-04-03] MEDS: Doxazosin Mesylate 2 MG TABLET PO (20:52)
[2023-04-04] MEDS: Levothyroxine Sodium 25 MCG TABLET PO (05:54)
[2023-04-04 07:50] VITALS: BP 147/65; PULSE 79; RESP 18; TEMP 36.6; O2SAT 97
[2023-04-04] MEDS: Ascorbic Acid 500 MG TABLET PO ×2 (08:29→20:13)
[2023-04-04] MEDS: Cholecalciferol (Vitamin D3) 25 MCG TABLET 50 MCG PO (08:30)
[2023-04-04] MEDS: polyethylene glycoL 3350 17 GM POWD.PACK PO (08:30)
[2023-04-04] MEDS: Famotidine 20 MG TABLET PO ×2 (08:30→20:12)
[2023-04-04] MEDS: Atorvastatin Calcium 20 MG TABLET PO (08:30)
[2023-04-04] MEDS: metFORMIN HCl 850 MG TABLET PO (08:30)
[2023-04-04] MEDS: Docusate Sodium 100 MG CAPSULE PO ×2 (08:30→20:13)
--- NOTE | 2023-04-04 13:51 | HO.PSYCHPN ---
Subjective Subjective Date of Service: 04/04/23 Reason For Visit: Schizoaffective Disorder Subjective Notes: Conditional Voluntary Interim History: Per nursing, pt slept most of night. Pt sitting, speech difficult to understand at times. She denies any concerns. She has been taking medications as prescribed. less combative. Medication Compliance: Yes Review of Systems Review of Systems Unable to obtain due to patient's mentation Yes Unobtainable due to mental status Mental Status Exam Mental Status Exam Patient Appearance: Well Grooomed Patient Orientation: Person Level of Consciousness: Awake and Appropriate Patient Behavior: Guarded and Passive Mood Description: Withdrawn Affect Description: Constricted Patient Cognition Impaired: Yes Ability to Follow Directions: Fair Speech Pattern: Clear Diagnostics Vital Signs (24Hr): Vital Signs - 24 hr 04/03/23 18:00 04/04/23 07:50 Temperature 97.7 F 97.9 F Pulse Rate 93 79 Respiratory Rate 18 18 Blood Pressure 159/72 H 147/65 H Pulse Oximetry 97 97 Oxygen Delivery Method Room Air Room Air Labs 03/31/23 08:33 Labs: Laboratory Results - last 48 hr 04/02/23 04/03/23 04/03/23 21:07 08:01 19:38 POC Glucose 294 H 278 H 282 H 04/04/23 07:43 POC Glucose 239 H Medications Medications Current Medications Acetaminophen (Acetaminophen 325 Mg Tablet) 650 mg PO Q6H PRN PRN Reason: Headache/Pain Mild Scale (1-3) Last Admin: 04/03/23 20:52 Dose: 650 mg Al Hydroxide/Mg Hydroxide (Magnesium Hydrox/Alum Hydrox 30 Ml Oral.Susp) 30 ml PO Q6H PRN PRN Reason: Heartburn/Nausea Ascorbic Acid (Ascorbic Acid 500 Mg Tablet) 500 mg PO BID [facility] Last Admin: 04/04/23 08:29 Dose: 500 mg Atorvastatin Calcium (Atorvastatin Calcium 20 Mg Tablet) 20 mg PO DAILY [facility] Last Admin: 04/04/23 08:30 Dose: 20 mg Calcium Carbonate (Calcium Carbonate 750 Mg Tab.Chew) 500 mg PO QID PRN PRN Reason: Heartburn Clonazepam (Clonazepam 1 Mg Tablet) 1 mg PO BEDTIME [facility] Last Admin: 04/03/23 20:52 Dose: 1 mg Clonazepam (Clonazepam 1 Mg Tablet) 1 mg PO DAILY PRN PRN Reason: Anxiety Last Admin: 04/02/23 09:25 Dose: 1 mg Divalproex Sodium (Divalproex Sodium Er 500 Mg Tab.Er.24h) 500 mg PO BEDTIME [facility] Last Admin: 04/03/23 20:51 Dose: 500 mg Docusate Sodium (Docusate Sodium 100 Mg Capsule) 100 mg PO BID [facility] Last Admin: 04/04/23 08:30 Dose: 100 mg Doxazosin Mesylate (Doxazosin Mesylate 2 Mg Tablet) 2 mg PO BEDTIME [facility] Last Admin: 04/03/23 20:52 Dose: 2 mg Famotidine (Famotidine 20 Mg Tablet) 20 mg PO BID [facility] Last Admin: 04/04/23 08:30 Dose: 20 mg Guaifenesin (Guaifenesin 200 Mg/10 Ml 10 Ml Liquid) 10 ml PO Q4H PRN PRN Reason: Cough Hydroxyzine HCl (Hydroxyzine Hcl 25 Mg Tablet) 25 mg PO Q6H PRN PRN Reason: Anxiety Last Admin: 04/03/23 20:52 Dose: 25 mg Levothyroxine Sodium (Levothyroxine Sodium 25 Mcg Tablet) 25 mcg PO DAILY@0600 [facility] Last Admin: 04/04/23 05:54 Dose: 25 mcg Magnesium Hydroxide (Milk Of Magnesia 30 Ml Oral.Susp) 30 ml PO DAILY PRN PRN Reason: Constipation Metformin HCl (Metformin Hcl 850 Mg Tablet) 850 mg PO DAILY [facility] Last Admin: 04/04/23 08:30 Dose: 850 mg Polyethylene Glycol (Polyethylene Glycol 3350 17 Gm Powd.Pack) 17 gm PO DAILY [facility] Last Admin: 04/04/23 08:30 Dose: 17 gm Quetiapine Fumarate (Quetiapine Fumarate 100 Mg Tablet) 100 mg PO BID@0800,1700 [facility] Last Admin: 04/04/23 08:29 Dose: 100 mg Quetiapine Fumarate (Quetiapine Fumarate 200 Mg Tablet) 200 mg PO BEDTIME [facility] Last Admin: 04/03/23 20:51 Dose: 200 mg Trazodone HCl (Trazodone Hcl 50 Mg Tablet) 50 mg PO BEDTIME MRX1 PRN PRN Reason: Insomnia Last Admin: 03/31/23 21:05 Dose: 50 mg Vitamin D (Cholecalciferol (Vitamin D3) 25 Mcg Tablet) 50 mcg PO DAILY [facility] Last Admin: 04/04/23 08:30 Dose: 50 mcg Allergies Allergies Allergy/AdvReac Type Severity Reaction Status Date / Time No Known Allergies Allergy Verified 03/29/23 18:39 Assessment & Plan Assessment & Plan (1) Schizoaffective disorder, bipolar type: Status: Acute Code(s): F25.0 - Schizoaffective disorder, bipolar type (2) Neurodegenerative cognitive impairment: Status: Acute Code(s): G31.9 - Degenerative disease of nervous system, unspecified Plan The patient is an elderly female with a past history of schizoaffective disorder bipolar type, with the legal guardian a corporate receive antipsychotics in the community referred to the emergency room due to increased agitation and nonsensical behaviors. When she was in the emergency room of [facility] she was diagnosed with a UTI and treated with antibiotics. So far her medical workout came back within normal limits but she remains grossly psychotic and disorganized, unable to understand lab warning and at this moment we do not have the guardian paperwork for the court ordered to receive antipsychotics. Plan 1. Gather collateral information. 2. Continue with antipsychotics and other medications prescribed admitted for Hospital. I assume that there full feeling the court order for antipsychotics. 3. Continue with medical workout. 4. Reassessment with results. 5. One-to-one observation for safety 6. Increase Seroquel up to 100 mg po tid on March 30. Seroquel has been increased on April 03 up to 100 mg p.o. b.i.d. and 200 mg p.o. q.h.s.. 04/04 continue tx. Reason for continued inpatient stay Substantial Risk for: inability to function Time Spent With Patient Time: Total time managing care of this patient today ____ minutes.
[2023-04-04 18:00] VITALS: BP 170/82; PULSE 93; RESP 18; TEMP 36.8
[2023-04-04] MEDS: Doxazosin Mesylate 2 MG TABLET PO (20:12)
[2023-04-04] MEDS: traZODone HCL 50 MG TABLET PO (20:13)
[2023-04-04] MEDS: Divalproex Sodium ER 500 MG TAB.ER.24H PO (20:13)
[2023-04-04] MEDS: clonazePAM 1 MG TABLET PO (20:13)
[2023-04-05] MEDS: Levothyroxine Sodium 25 MCG TABLET PO (06:27)
[2023-04-05 08:18] VITALS: BP 126/59; PULSE 89; RESP 18; TEMP 36.5; O2SAT 96
[2023-04-05 09:16] VITALS: BP 170/82; PULSE 93
[2023-04-05] MEDS: Docusate Sodium 100 MG CAPSULE PO ×2 (09:28→20:47)
[2023-04-05] MEDS: Atorvastatin Calcium 20 MG TABLET PO (09:28)
[2023-04-05] MEDS: Ascorbic Acid 500 MG TABLET PO ×2 (09:28→20:47)
[2023-04-05] MEDS: metFORMIN HCl 850 MG TABLET PO (09:28)
[2023-04-05] MEDS: hydrOXYzine HCL 25 MG TABLET PO ×2 (09:28→20:48)
[2023-04-05] MEDS: Cholecalciferol (Vitamin D3) 25 MCG TABLET 50 MCG PO (09:28)
[2023-04-05] MEDS: Famotidine 20 MG TABLET PO ×2 (09:28→20:48)
[2023-04-05] MEDS: clonazePAM 1 MG TABLET PO (09:28)
[2023-04-05] MEDS: polyethylene glycoL 3350 17 GM POWD.PACK PO (09:29)
--- NOTE | 2023-04-05 11:26 | HO.PSYCHPN ---
Subjective Subjective Date of Service: 04/05/23 Reason For Visit: Schizoaffective Disorder Subjective Notes: Section 7 and Section 8 Interim History: The nursing staff reported the patient has been alert to person only, she has less psychomotor agitation. Still with nonsensical speech, she had a shower yesterday. According to collateral information, the patient walks by herself at home without any devices but here she needs a wheelchair. We will order a PT consult and labs for tomorrow. On interview the patient is pleasantly confused. Mental Status Exam Mental Status Exam Patient Appearance: Well Grooomed and Appropriate Patient Orientation: Person and Situation Level of Consciousness: Awake and Appropriate Patient Behavior: Guarded and Passive Mood Description: Withdrawn Affect Description: Constricted Patient Cognition Impaired: Yes Ability to Follow Directions: Good Speech Pattern: Appropriate Hallucinations: None Delusions: Not Present Thought Process: Illogical and Distracted Thought Content: positive for Wheeler, positive for Thought Blocking and positive for Incoherent Judgement: Poor Diagnostics Vital Signs (24Hr): Vital Signs - 24 hr 04/04/23 18:00 04/05/23 09:16 04/05/23 08:18 Temperature 98.3 F 97.7 F Pulse Rate 93 93 89 Respiratory Rate 18 18 Blood Pressure 170/82 H 170/82 H 126/59 L Pulse Oximetry 96 Oxygen Delivery Method Room Air Room Air Labs 03/31/23 08:33 Labs: Laboratory Results - last 48 hr 04/03/23 04/04/23 04/05/23 19:38 07:43 06:52 POC Glucose 282 H 239 H 275 H 04/05/23 07:52 POC Glucose 236 H Medications Medications Current Medications Acetaminophen (Acetaminophen 325 Mg Tablet) 650 mg PO Q6H PRN PRN Reason: Headache/Pain Mild Scale (1-3) Last Admin: 04/03/23 20:52 Dose: 650 mg Al Hydroxide/Mg Hydroxide (Magnesium Hydrox/Alum Hydrox 30 Ml Oral.Susp) 30 ml PO Q6H PRN PRN Reason: Heartburn/Nausea Ascorbic Acid (Ascorbic Acid 500 Mg Tablet) 500 mg PO BID [facility] Last Admin: 04/05/23 09:28 Dose: 500 mg Atorvastatin Calcium (Atorvastatin Calcium 20 Mg Tablet) 20 mg PO DAILY [facility] Last Admin: 04/05/23 09:28 Dose: 20 mg Calcium Carbonate (Calcium Carbonate 750 Mg Tab.Chew) 500 mg PO QID PRN PRN Reason: Heartburn Clonazepam (Clonazepam 1 Mg Tablet) 1 mg PO DAILY PRN PRN Reason: Anxiety Last Admin: 04/05/23 09:28 Dose: 1 mg Divalproex Sodium (Divalproex Sodium Er 500 Mg Tab.Er.24h) 500 mg PO BEDTIME [facility] Last Admin: 04/04/23 20:13 Dose: 500 mg Docusate Sodium (Docusate Sodium 100 Mg Capsule) 100 mg PO BID [facility] Last Admin: 04/05/23 09:28 Dose: 100 mg Doxazosin Mesylate (Doxazosin Mesylate 2 Mg Tablet) 2 mg PO BEDTIME [facility] Last Admin: 04/04/23 20:12 Dose: 2 mg Famotidine (Famotidine 20 Mg Tablet) 20 mg PO BID [facility] Last Admin: 04/05/23 09:28 Dose: 20 mg Guaifenesin (Guaifenesin 200 Mg/10 Ml 10 Ml Liquid) 10 ml PO Q4H PRN PRN Reason: Cough Hydroxyzine HCl (Hydroxyzine Hcl 25 Mg Tablet) 25 mg PO Q6H PRN PRN Reason: Anxiety Last Admin: 04/05/23 09:28 Dose: 25 mg Levothyroxine Sodium (Levothyroxine Sodium 25 Mcg Tablet) 25 mcg PO DAILY@0600 [facility] Last Admin: 04/05/23 06:27 Dose: 25 mcg Magnesium Hydroxide (Milk Of Magnesia 30 Ml Oral.Susp) 30 ml PO DAILY PRN PRN Reason: Constipation Metformin HCl (Metformin Hcl 850 Mg Tablet) 850 mg PO DAILY [facility] Last Admin: 04/05/23 09:28 Dose: 850 mg Polyethylene Glycol (Polyethylene Glycol 3350 17 Gm Powd.Pack) 17 gm PO DAILY [facility] Last Admin: 04/05/23 09:29 Dose: 17 gm Quetiapine Fumarate (Quetiapine Fumarate 100 Mg Tablet) 100 mg PO BID@0800,1700 [facility] Last Admin: 04/05/23 09:28 Dose: 100 mg Quetiapine Fumarate (Quetiapine Fumarate 200 Mg Tablet) 200 mg PO BEDTIME [facility] Last Admin: 04/04/23 20:12 Dose: 200 mg Trazodone HCl (Trazodone Hcl 50 Mg Tablet) 50 mg PO BEDTIME MRX1 PRN PRN Reason: Insomnia Last Admin: 04/04/23 20:13 Dose: 50 mg Vitamin D (Cholecalciferol (Vitamin D3) 25 Mcg Tablet) 50 mcg PO DAILY [facility] Last Admin: 04/05/23 09:28 Dose: 50 mcg Allergies Allergies Allergy/AdvReac Type Severity Reaction Status Date / Time No Known Allergies Allergy Verified 03/29/23 18:39 Assessment & Plan Assessment & Plan (1) Schizoaffective disorder, bipolar type: Status: Acute Code(s): F25.0 - Schizoaffective disorder, bipolar type (2) Neurodegenerative cognitive impairment: Status: Acute Code(s): G31.9 - Degenerative disease of nervous system, unspecified Plan The patient is an elderly female with a past history of schizoaffective disorder bipolar type, with the legal guardian a corporate receive antipsychotics in the community referred to the emergency room due to increased agitation and nonsensical behaviors. When she was in the emergency room of [facility] she was diagnosed with a UTI and treated with antibiotics. So far her medical workout came back within normal limits but she remains grossly psychotic and disorganized, unable to understand lab warning and at this moment we do not have the guardian paperwork for the court ordered to receive antipsychotics. Plan 1. Gather collateral information. 2. Continue with antipsychotics and other medications prescribed admitted for Hospital. I assume that there full feeling the court order for antipsychotics. 3. Continue with medical workout. 4. Reassessment with results. 5. One-to-one observation for safety 6. Increase Seroquel up to 100 mg po tid on March 30. Seroquel has been increased on April 03 up to 100 mg p.o. b.i.d. and 200 mg p.o. q.h.s.. 7. PT consult for April 05. Reason for continued inpatient stay Substantial Risk for: inability to function, rapid decompensation and med/psych decompensation Time Spent With Patient Time: Total time managing care of this patient today __20__ minutes.
--- NOTE | 2023-04-05 14:47 | MHC.CLN ---
F/U CONTINUES WITH ELEVATED BLOOD GLUCOSE. PATIENT LIKES/ACCEPTS ENSURE SUPPLEMENT. INTAKE AT MEALS VARIABLE. TODAY, ATE 75% OF BREAKFAST AND DRANK ENSURE ONLY AT LUNCH. CONTINUE REGULAR DIET TO PROMOTE PO INTAKE. ADD ENSURE MAX BID TO PROVIDE 300 KCALS, 60 G PROTEIN. THIS IS A LOWER CARBOHYDRATE PRODUCT. SUPPLY OF GLUCERNA DELIVERED TO UNIT FOR PATIENT AND NURSING TO PROVIDE APPROPRIATE. ONE GLUCERNA SHAKE PROVIDES 237 KCALS, 10 G PROTEIN. MONITOR INTAKE AND BLOOD GLUCOSE.
[2023-04-05 18:00] VITALS: BP 115/57; PULSE 90; RESP 16; TEMP 36.8; O2SAT 95
[2023-04-05] MEDS: Doxazosin Mesylate 2 MG TABLET PO (20:47)
[2023-04-05] MEDS: Divalproex Sodium ER 500 MG TAB.ER.24H PO (20:47)
[2023-04-05] MEDS: traZODone HCL 50 MG TABLET PO (20:48)
[2023-04-06] MEDS: Levothyroxine Sodium 25 MCG TABLET PO (06:01)
[2023-04-06 07:41] LABS: MANUAL DIFF FLAG NO
[2023-04-06 07:44] LABS: Basophils Percent Auto 0.3 % (0-2); Eosinophils Absolute Auto 0.2 X10*3/uL (0.0-0.4); Eosinophils Percent Auto 2.7 % (0-4); Hematocrit 31.5 % (37.0-47.0); Hemoglobin 10.9 g/dl (12.0-16.0); Imm Gran Abs Auto 0.03 X10*3/uL (0.00-0.03); Imm Gran Pct Auto 0.4 % (0.0-0.4); Lymphocytes Absolute Auto 2.8 X10*3/uL (1.2-4.9); Lymphocytes Percent Auto 34.9 % (20-40); Mean Corpuscular HGB Conc 34.6 g/dl (31.0-35.0); Mean Corpuscular Hemoglobin 30.1 pg (27.0-33.0); Mean Platelet Volume 11.5 fL (9.4-12.3); Monocytes Absolute Auto 0.8 X10*3/uL (0.1-1.2); Monocytes Percent Auto 9.9 % (2-11); Neutrophils Absolute Auto 4.1 x10*3/uL (2.0-8.3); Neutrophils Percent Auto 51.8 % (45-73); Platelet Count 189 X10*3/uL (160-400); Red Blood Count 3.62 X10*6/uL (4.20-5.50); Red Cell Distribution Width 14.2 % (11.0-16.0); White Blood Count 7.9 X10*3/uL (4.8-10.8)
[2023-04-06 08:09] LABS: Valproate 22.5 mcg/mL (50.0-100.0)
[2023-04-06 08:15] LABS: Estimated Average Glucose 174 mg/dL; Hemoglobin A1c % 7.7 %
[2023-04-06 08:18] VITALS: BP 116/56; PULSE 88; RESP 18; TEMP 36.6; O2SAT 95
[2023-04-06 08:25] LABS: Alanine Aminotransferase 37 U/L (0-31); Albumin Level 3.4 g/dL (3.5-5.0); Alkaline Phosphatase 61 U/L (39-117); Aspartate Amino Transferase 23 U/L (5-31); Bilirubin Direct 0.2 mg/dL (0.0-0.5); Bilirubin Total 0.5 mg/dL (0.0-1.0); Blood Urea Nitrogen 20 mg/dL (9-16); Calcium 10.2 mg/dL (8.4-10.2); Chloride 105 mmol/L (96-108); Estimated Glomerular Filt Rate > 60; Glucose Random 274 mg/dL (60-115); Potassium 4.2 mmol/L (3.3-5.1); Sodium 136 mmol/L (135-145); Total Protein 6.4 g/dL (6.5-8.0)
[2023-04-06 08:35] LABS: Thyroid Stimulating Hormone 1.83 uIU/mL (0.32-4.0)
[2023-04-06] MEDS: Cholecalciferol (Vitamin D3) 25 MCG TABLET 50 MCG PO (09:12)
[2023-04-06] MEDS: Docusate Sodium 100 MG CAPSULE PO ×2 (09:12→21:15)
[2023-04-06] MEDS: hydrOXYzine HCL 25 MG TABLET PO ×2 (09:12→21:16)
[2023-04-06] MEDS: metFORMIN HCl 850 MG TABLET PO (09:12)
[2023-04-06] MEDS: Famotidine 20 MG TABLET PO ×2 (09:12→21:15)
[2023-04-06] MEDS: Ascorbic Acid 500 MG TABLET PO ×2 (09:12→21:16)
[2023-04-06] MEDS: Atorvastatin Calcium 20 MG TABLET PO (09:12)
[2023-04-06] MEDS: clonazePAM 1 MG TABLET PO (09:13)
[2023-04-06] MEDS: polyethylene glycoL 3350 17 GM POWD.PACK PO (09:17)
--- NOTE | 2023-04-06 10:08 | HO.PSYCHPN ---
Subjective Subjective Date of Service: 04/06/23 Reason For Visit: Schizoaffective Disorder Subjective Notes: Section 7 and Section 8 Interim History: The nursing staff reported the patient is more awake and alert, she knows that she is in the hospital and she had been irritable and anxious. She needed Atarax and trazodone last night. The DDS worker who knows her from before reported that she is far from her baseline. Today, his Depakote level was very low 22.5 so will increased up to 1000 mg p.o. q.h.s.. On interview the patient remains confused and delusional at times we will increase Seroquel up to 300 mg p.o. q.h.s.. Mental Status Exam Mental Status Exam Patient Appearance: Well Grooomed and Appropriate Patient Orientation: Person and Situation Level of Consciousness: Awake and Appropriate Patient Behavior: Guarded and Passive Mood Description: Withdrawn Affect Description: Constricted Patient Cognition Impaired: Yes Ability to Follow Directions: Good Speech Pattern: Clear Hallucinations: None Delusions: Paranoid Ideation Thought Process: Distracted and Slowed Thinking Thought Content: positive for [place], positive for Perseveration and positive for Thought Blocking Judgement: Poor Diagnostics Vital Signs (24Hr): Vital Signs - 24 hr 04/05/23 18:00 04/06/23 08:18 Temperature 98.3 F 97.9 F Pulse Rate 90 88 Respiratory Rate 16 18 Blood Pressure 115/57 L 116/56 L Pulse Oximetry 95 95 Oxygen Delivery Method Room Air Room Air Labs 04/06/23 07:23 04/06/23 07:23 Labs: Laboratory Results - last 48 hr 04/05/23 04/05/23 04/05/23 06:52 07:52 21:38 WBC RBC Hgb Hct MCV MCH MCHC RDW Plt Count MPV Immature Gran % (Auto) Neut % (Auto) Lymph % (Auto) Phelps % (Auto) Eos % (Auto) Baso % (Auto) Lymph # (Auto) Phelps # (Auto) Eos # (Auto) Baso # (Auto) Abs Immat Gran (auto) Absolute Neuts (auto) Absolute Nucleated RBC Nucleated RBC % (auto) Sodium Potassium Chloride BUN Creatinine Estim Creat Clear Calc Estimated GFR POC Glucose 275 H 236 H 391 H* Random Glucose Estimat Average Glucose Hemoglobin A1c % Calcium Total Bilirubin Direct Bilirubin AST ALT Alkaline Phosphatase Total Protein Albumin TSH Valproic Acid 04/06/23 04/06/23 04/06/23 07:23 07:23 07:23 WBC 7.9 RBC 3.62 L Hgb 10.9 L Hct 31.5 L MCV 87.0 MCH 30.1 MCHC 34.6 RDW 14.2 Plt Count 189 MPV 11.5 Immature Gran % (Auto) 0.4 Neut % (Auto) 51.8 Lymph % (Auto) 34.9 Phelps % (Auto) 9.9 Eos % (Auto) 2.7 Baso % (Auto) 0.3 Lymph # (Auto) 2.8 Phelps # (Auto) 0.8 Eos # (Auto) 0.2 Baso # (Auto) 0.0 Abs Immat Gran (auto) 0.03 Absolute Neuts (auto) 4.1 Absolute Nucleated RBC 0.000 Nucleated RBC % (auto) 0.0 Sodium 136 Potassium 4.2 Chloride 105 BUN 20 H Creatinine 0.65 Estim Creat Clear Calc TNP Estimated GFR > 60 POC Glucose Random Glucose 274 H Estimat Average Glucose 174 Hemoglobin A1c % 7.7 Calcium 10.2 Total Bilirubin 0.5 Direct Bilirubin 0.2 AST 23 ALT 37 H Alkaline Phosphatase 61 Total Protein 6.4 L Albumin 3.4 L TSH 1.83 Valproic Acid 04/06/23 04/06/23 07:23 07:53 WBC RBC Hgb Hct MCV MCH MCHC RDW Plt Count MPV Immature Gran % (Auto) Neut % (Auto) Lymph % (Auto) Phelps % (Auto) Eos % (Auto) Baso % (Auto) Lymph # (Auto) Phelps # (Auto) Eos # (Auto) Baso # (Auto) Abs Immat Gran (auto) Absolute Neuts (auto) Absolute Nucleated RBC Nucleated RBC % (auto) Sodium Potassium Chloride BUN Creatinine Estim Creat Clear Calc Estimated GFR POC Glucose 264 H Random Glucose Estimat Average Glucose Hemoglobin A1c % Calcium Total Bilirubin Direct Bilirubin AST ALT Alkaline Phosphatase Total Protein Albumin TSH Valproic Acid 22.5 L Medications Medications Current Medications Acetaminophen (Acetaminophen 325 Mg Tablet) 650 mg PO Q6H PRN PRN Reason: Headache/Pain Mild Scale (1-3) Last Admin: 04/03/23 20:52 Dose: 650 mg Al Hydroxide/Mg Hydroxide (Magnesium Hydrox/Alum Hydrox 30 Ml Oral.Susp) 30 ml PO Q6H PRN PRN Reason: Heartburn/Nausea Ascorbic Acid (Ascorbic Acid 500 Mg Tablet) 500 mg PO BID [facility] Last Admin: 04/06/23 09:12 Dose: 500 mg Atorvastatin Calcium (Atorvastatin Calcium 20 Mg Tablet) 20 mg PO DAILY [facility] Last Admin: 04/06/23 09:12 Dose: 20 mg Calcium Carbonate (Calcium Carbonate 750 Mg Tab.Chew) 500 mg PO QID PRN PRN Reason: Heartburn Clonazepam (Clonazepam 1 Mg Tablet) 1 mg PO DAILY PRN PRN Reason: Anxiety Last Admin: 04/06/23 09:13 Dose: 1 mg Divalproex Sodium (Divalproex Sodium Er 500 Mg Tab.Er.24h) 1,000 mg PO BEDTIME [facility] Docusate Sodium (Docusate Sodium 100 Mg Capsule) 100 mg PO BID [facility] Last Admin: 04/06/23 09:12 Dose: 100 mg Doxazosin Mesylate (Doxazosin Mesylate 2 Mg Tablet) 2 mg PO BEDTIME [facility] Last Admin: 04/05/23 20:47 Dose: 2 mg Famotidine (Famotidine 20 Mg Tablet) 20 mg PO BID [facility] Last Admin: 04/06/23 09:12 Dose: 20 mg Guaifenesin (Guaifenesin 200 Mg/10 Ml 10 Ml Liquid) 10 ml PO Q4H PRN PRN Reason: Cough Hydroxyzine HCl (Hydroxyzine Hcl 25 Mg Tablet) 25 mg PO Q6H PRN PRN Reason: Anxiety Last Admin: 04/06/23 09:12 Dose: 25 mg Levothyroxine Sodium (Levothyroxine Sodium 25 Mcg Tablet) 25 mcg PO DAILY@0600 [facility] Last Admin: 04/06/23 06:01 Dose: 25 mcg Magnesium Hydroxide (Milk Of Magnesia 30 Ml Oral.Susp) 30 ml PO DAILY PRN PRN Reason: Constipation Metformin HCl (Metformin Hcl 850 Mg Tablet) 850 mg PO DAILY [facility] Last Admin: 04/06/23 09:12 Dose: 850 mg Polyethylene Glycol (Polyethylene Glycol 3350 17 Gm Powd.Pack) 17 gm PO DAILY [facility] Last Admin: 04/06/23 09:17 Dose: 17 gm Quetiapine Fumarate (Quetiapine Fumarate 100 Mg Tablet) 100 mg PO BID@0800,1700 [facility] Last Admin: 04/06/23 09:12 Dose: 100 mg Quetiapine Fumarate (Quetiapine Fumarate 300 Mg Tablet) 300 mg PO BEDTIME [facility] Trazodone HCl (Trazodone Hcl 50 Mg Tablet) 50 mg PO BEDTIME MRX1 PRN PRN Reason: Insomnia Last Admin: 04/05/23 20:48 Dose: 50 mg Vitamin D (Cholecalciferol (Vitamin D3) 25 Mcg Tablet) 50 mcg PO DAILY [facility] Last Admin: 04/06/23 09:12 Dose: 50 mcg Allergies Allergies Allergy/AdvReac Type Severity Reaction Status Date / Time No Known Allergies Allergy Verified 03/29/23 18:39 Assessment & Plan Assessment & Plan (1) Schizoaffective disorder, bipolar type: Status: Acute Code(s): F25.0 - Schizoaffective disorder, bipolar type (2) Neurodegenerative cognitive impairment: Status: Acute Code(s): G31.9 - Degenerative disease of nervous system, unspecified Plan The patient is an elderly female with a past history of schizoaffective disorder bipolar type, with the legal guardian a corporate receive antipsychotics in the community referred to the emergency room due to increased agitation and nonsensical behaviors. When she was in the emergency room of [facility] she was diagnosed with a UTI and treated with antibiotics. So far her medical workout came back within normal limits but she remains grossly psychotic and disorganized, unable to understand lab warning and at this moment we do not have the guardian paperwork for the court ordered to receive antipsychotics. Plan 1. Gather collateral information. 2. Continue with antipsychotics and other medications prescribed admitted for Hospital. I assume that there full feeling the court order for antipsychotics. 3. Continue with medical workout. 4. Reassessment with results. 5. One-to-one observation for safety 6. Increase Seroquel up to 100 mg po tid on March 30. Seroquel has been increased on April 03 up to 100 mg p.o. b.i.d. and 200 mg p.o. q.h.s.. On April 06 we increase Seroquel up to 300 mg p.o. q.h.s. 7. PT consult for April 05. 8. Depakote was increased up to a 1000 mg p.o. q.h.s. on April 06 since her Depakote level was low. Reason for continued inpatient stay Substantial Risk for: inability to function, rapid decompensation and med/psych decompensation Time Spent With Patient Time: Total time managing care of this patient today __20__ minutes.
[2023-04-06 10:17] LABS: Carbon Dioxide 19 mmol/L (22-29)
[2023-04-06 10:27] LABS: Anion Gap 18 (12-20)
[2023-04-06 11:32] VITALS: BMI 27.1
--- NOTE | 2023-04-06 12:55 | PM.EVENT ---
Event Note Date of Service: 04/06/23 Event Note: Hospice consult patient elevated glucose levels. Patient's POC glucose has recurred and in the 200s since admission, with a high of 391 on 04/05/2023. Patient currently on metformin 850 mg daily. Will increase metformin to [address] on a sliding scale insulin. Will follow sugars for now. Time Spent With Patient Time: Total time managing care of this patient today ____ minutes.
[2023-04-06 18:00] VITALS: BP 132/63; PULSE 87; RESP 18; TEMP 36.5; O2SAT 96
[2023-04-06] MEDS: Doxazosin Mesylate 2 MG TABLET PO (21:15)
[2023-04-06] MEDS: Acetaminophen 325 MG TABLET 650 MG PO (21:16)
[2023-04-07] MEDS: Levothyroxine Sodium 25 MCG TABLET PO (06:22)
[2023-04-07] MEDS: polyethylene glycoL 3350 17 GM POWD.PACK PO (08:55)
[2023-04-07] MEDS: Cholecalciferol (Vitamin D3) 25 MCG TABLET 50 MCG PO (08:58)
[2023-04-07] MEDS: Docusate Sodium 100 MG CAPSULE PO ×2 (08:58→20:47)
[2023-04-07] MEDS: Atorvastatin Calcium 20 MG TABLET PO (08:58)
[2023-04-07] MEDS: Famotidine 20 MG TABLET PO ×2 (08:58→20:47)
[2023-04-07] MEDS: Ascorbic Acid 500 MG TABLET PO ×2 (08:58→20:46)
[2023-04-07 09:49] VITALS: BP 133/58; PULSE 88; RESP 18; TEMP 35.8; O2SAT 95
[2023-04-07 11:25] LABS: Glucose, Whole Blood 387 mg/dL (60-115)
--- NOTE | 2023-04-07 11:41 | PC.NURSE ---
1130 blood sugar was 387, [address] Sheppard updated.
--- NOTE | 2023-04-07 13:07 | MHC.CLN ---
F/U CONTINUES WITH ELEVATED BLOOD GLUCOSE. NEW ORDER FOR INSULIN AND INCREASE TO METFORMIN. CONTINUE ENSURE MAX BID TO PROVIDE 300 KCALS, 60 G PROTEIN. THIS IS A LOWER CARBOHYDRATE PRODUCT. SUPPLY OF GLUCERNA DELIVERED TO UNIT FOR PATIENT AND NURSING TO PROVIDE APPROPRIATE. ONE GLUCERNA SHAKE PROVIDES 237 KCALS, 10 G PROTEIN. MONITOR INTAKE AND BLOOD GLUCOSE.
--- NOTE | 2023-04-07 14:54 | HO.PSYCHPN ---
Subjective Subjective Date of Service: 04/07/23 Reason For Visit: Schizoaffective Disorder Subjective Notes: Conditional Voluntary Interim History: The nursing staff reported that the patient is now on sliding scale to control his glycemia. She has been followed by the medical team. According to the DDS worker she is not at her baseline yet but she looks much better. She needed Tylenol in the evening for pain. On interview the patient is pleasantly confused she stated that she is feeling better. We will keep Seroquel as prescribed. Mental Status Exam Mental Status Exam Patient Appearance: Well Grooomed and Appropriate Patient Orientation: Person and Situation Level of Consciousness: Awake and Appropriate Patient Behavior: Guarded and Passive Mood Description: Calm Affect Description: Constricted Patient Cognition Impaired: Yes Ability to Follow Directions: Good Speech Pattern: Clear Hallucinations: None Delusions: Paranoid Ideation Thought Process: Distracted and Evasive Thought Content: positive for [place] and positive for [place] of Content Judgement: Fair Diagnostics Vital Signs (24Hr): Vital Signs - 24 hr 04/06/23 18:00 04/07/23 09:49 Temperature 97.7 F 96.5 F L Pulse Rate 87 88 Respiratory Rate 18 18 Blood Pressure 132/63 133/58 L Pulse Oximetry 96 95 Oxygen Delivery Method Room Air Room Air BMI result Body Mass Index 27.1 Labs 04/06/23 07:23 04/06/23 07:23 Labs: Laboratory Results - last 48 hr 04/05/23 04/06/23 04/06/23 21:38 07:23 07:23 WBC 7.9 RBC 3.62 L Hgb 10.9 L Hct 31.5 L MCV 87.0 MCH 30.1 MCHC 34.6 RDW 14.2 Plt Count 189 MPV 11.5 Immature Gran % (Auto) 0.4 Neut % (Auto) 51.8 Lymph % (Auto) 34.9 Ferry % (Auto) 9.9 Eos % (Auto) 2.7 Baso % (Auto) 0.3 Lymph # (Auto) 2.8 [place]erry # (Auto) 0.8 Eos # (Auto) 0.2 Baso # (Auto) 0.0 Abs Immat Gran (auto) 0.03 Absolute Neuts (auto) 4.1 Absolute Nucleated RBC 0.000 Nucleated RBC % (auto) 0.0 Sodium 136 Potassium 4.2 Chloride 105 Carbon Dioxide 19 L Anion Gap 18 BUN 20 H Creatinine 0.65 Estim Creat Clear Calc TNP Estimated GFR > 60 POC Glucose 391 H* Random Glucose 274 H Estimat Average Glucose Hemoglobin A1c % Calcium 10.2 Total Bilirubin 0.5 Direct Bilirubin 0.2 AST 23 ALT 37 H Alkaline Phosphatase 61 Total Protein 6.4 L Albumin 3.4 L TSH 1.83 Valproic Acid 04/06/23 04/06/23 04/06/23 07:23 07:23 07:53 WBC RBC Hgb Hct MCV MCH MCHC RDW Plt Count MPV Immature Gran % (Auto) Neut % (Auto) Lymph % (Auto) [place] % (Auto) Eos % (Auto) Baso % (Auto) Lymph # (Auto) [place] # (Auto) Eos # (Auto) Baso # (Auto) Abs Immat Gran (auto) Absolute Neuts (auto) Absolute Nucleated RBC Nucleated RBC % (auto) Sodium Potassium Chloride Carbon Dioxide Anion Gap BUN Creatinine Estim Creat Clear Calc Estimated GFR POC Glucose 264 H Random Glucose Estimat Average Glucose 174 Hemoglobin A1c % 7.7 Calcium Total Bilirubin Direct Bilirubin AST ALT Alkaline Phosphatase Total Protein Albumin TSH Valproic Acid 22.5 L 04/06/23 04/06/23 04/07/23 16:29 21:14 07:38 WBC RBC Hgb Hct MCV MCH MCHC RDW Plt Count MPV Immature Gran % (Auto) Neut % (Auto) Lymph % (Auto) [place]erry % (Auto) Eos % (Auto) Baso % (Auto) Lymph # (Auto) [place] # (Auto) Eos # (Auto) Baso # (Auto) Abs Immat Gran (auto) Absolute Neuts (auto) Absolute Nucleated RBC Nucleated RBC % (auto) Sodium Potassium Chloride Carbon Dioxide Anion Gap BUN Creatinine Estim Creat Clear Calc Estimated GFR POC Glucose 339 H 312 H 232 H Random Glucose Estimat Average Glucose Hemoglobin A1c % Calcium Total Bilirubin Direct Bilirubin AST ALT Alkaline Phosphatase Total Protein Albumin TSH Valproic Acid 04/07/23 11:21 WBC RBC Hgb Hct MCV MCH MCHC RDW Plt Count MPV Immature Gran % (Auto) Neut % (Auto) Lymph % (Auto) [place] % (Auto) Eos % (Auto) Baso % (Auto) Lymph # (Auto) [place] # (Auto) Eos # (Auto) Baso # (Auto) Abs Immat Gran (auto) Absolute Neuts (auto) Absolute Nucleated RBC Nucleated RBC % (auto) Sodium Potassium Chloride Carbon Dioxide Anion Gap BUN Creatinine Estim Creat Clear Calc Estimated GFR POC Glucose 387 H* Random Glucose Estimat Average Glucose Hemoglobin A1c % Calcium Total Bilirubin Direct Bilirubin AST ALT Alkaline Phosphatase Total Protein Albumin TSH Valproic Acid Medications Medications Current Medications Acetaminophen (Acetaminophen 325 Mg Tablet) 650 mg PO Q6H PRN PRN Reason: Headache/Pain Mild Scale (1-3) Last Admin: 04/06/23 21:16 Dose: 650 mg Al Hydroxide/Mg Hydroxide (Magnesium Hydrox/Alum Hydrox 30 Ml Oral.Susp) 30 ml PO Q6H PRN PRN Reason: Heartburn/Nausea Ascorbic Acid (Ascorbic Acid 500 Mg Tablet) 500 mg PO BID [facility] Last Admin: 04/07/23 08:58 Dose: 500 mg Atorvastatin Calcium (Atorvastatin Calcium 20 Mg Tablet) 20 mg PO DAILY [facility] Last Admin: 04/07/23 08:58 Dose: 20 mg Calcium Carbonate (Calcium Carbonate 750 Mg Tab.Chew) 500 mg PO QID PRN PRN Reason: Heartburn Clonazepam (Clonazepam 1 Mg Tablet) 1 mg PO DAILY PRN PRN Reason: Anxiety Last Admin: 04/06/23 09:13 Dose: 1 mg Dextrose (Dextrose 50 % 25 Gm/50 Ml Syringe) 25 gm IVPUSH Q15M PRN; Protocol PRN Reason: per Hypoglycemia Standing Ord. Divalproex Sodium (Divalproex Sodium Er 500 Mg Tab.Er.24h) 1,000 mg PO BEDTIME [facility] Last Admin: 04/06/23 21:15 Dose: 1,000 mg Docusate Sodium (Docusate Sodium 100 Mg Capsule) 100 mg PO BID [facility] Last Admin: 04/07/23 08:58 Dose: 100 mg Doxazosin Mesylate (Doxazosin Mesylate 2 Mg Tablet) 2 mg PO BEDTIME [facility] Last Admin: 04/06/23 21:15 Dose: 2 mg Famotidine (Famotidine 20 Mg Tablet) 20 mg PO BID [facility] Last Admin: 04/07/23 08:58 Dose: 20 mg Glucose (Glucose Gel 15 Gm Gel..Gram.) 15 gm PO Q15M PRN; Protocol PRN Reason: per Hypoglycemia Standing Ord. Guaifenesin (Guaifenesin 200 Mg/10 Ml 10 Ml Liquid) 10 ml PO Q4H PRN PRN Reason: Cough Hydroxyzine HCl (Hydroxyzine Hcl 25 Mg Tablet) 25 mg PO Q6H PRN PRN Reason: Anxiety Last Admin: 04/06/23 21:16 Dose: 25 mg Insulin Human Lispro (Insulin Lispro 100 Unit/Ml 3 Ml Vial) 0 unit SUBCUT QIDACHS [facility]; Protocol Last Admin: 04/07/23 11:35 Dose: 10 unit Levothyroxine Sodium (Levothyroxine Sodium 25 Mcg Tablet) 25 mcg PO DAILY@0600 [facility] Last Admin: 04/07/23 06:22 Dose: 25 mcg Magnesium Hydroxide (Milk Of Magnesia 30 Ml Oral.Susp) 30 ml PO DAILY PRN PRN Reason: Constipation Metformin HCl (Metformin Hcl 1,000 Mg Tablet) 1,000 mg PO BIDWM [facility] Last Admin: 04/07/23 08:58 Dose: 1,000 mg Polyethylene Glycol (Polyethylene Glycol 3350 17 Gm Powd.Pack) 17 gm PO DAILY [facility] Last Admin: 04/07/23 08:55 Dose: 17 gm Quetiapine Fumarate (Quetiapine Fumarate 100 Mg Tablet) 100 mg PO BID@0800,1700 [facility] Last Admin: 04/07/23 08:59 Dose: 100 mg Quetiapine Fumarate (Quetiapine Fumarate 300 Mg Tablet) 300 mg PO BEDTIME [facility] Last Admin: 04/06/23 21:15 Dose: 300 mg Trazodone HCl (Trazodone Hcl 50 Mg Tablet) 50 mg PO BEDTIME MRX1 PRN PRN Reason: Insomnia Last Admin: 04/05/23 20:48 Dose: 50 mg Vitamin D (Cholecalciferol (Vitamin D3) 25 Mcg Tablet) 50 mcg PO DAILY [facility] Last Admin: 04/07/23 08:58 Dose: 50 mcg Allergies Allergies Allergy/AdvReac Type Severity Reaction Status Date / Time No Known Allergies Allergy Verified 03/29/23 18:39 Assessment & Plan Assessment & Plan (1) Schizoaffective disorder, bipolar type: Status: Acute Code(s): F25.0 - Schizoaffective disorder, bipolar type (2) Neurodegenerative cognitive impairment: Status: Acute Code(s): G31.9 - Degenerative disease of nervous system, unspecified Plan The patient is an elderly female with a past history of schizoaffective disorder bipolar type, with the legal guardian a corporate receive antipsychotics in the community referred to the emergency room due to increased agitation and nonsensical behaviors. When she was in the emergency room of [facility] she was diagnosed with a UTI and treated with antibiotics. So far her medical workout came back within normal limits but she remains grossly psychotic and disorganized, unable to understand lab warning and at this moment we do not have the guardian paperwork for the court ordered to receive antipsychotics. Plan 1. Gather collateral information. 2. Continue with antipsychotics and other medications prescribed admitted for Hospital. I assume that there full feeling the court order for antipsychotics. 3. Continue with medical workout. 4. Reassessment with results. 5. One-to-one observation for safety 6. Increase Seroquel up to 100 mg po tid on March 30. Seroquel has been increased on April 03 up to 100 mg p.o. b.i.d. and 200 mg p.o. q.h.s.. On April 06 we increase Seroquel up to 300 mg p.o. q.h.s. 7. PT consult for April 05. 8. Depakote was increased up to a 1000 mg p.o. q.h.s. on April 06 since her Depakote level was low. Reason for continued inpatient stay Substantial Risk for: inability to function, rapid decompensation and med/psych decompensation Time Spent With Patient Time: Total time managing care of this patient today __20__ minutes.
[2023-04-07 18:00] VITALS: BP 140/65; PULSE 84; RESP 18; TEMP 36.4; O2SAT 96
[2023-04-07] MEDS: Doxazosin Mesylate 2 MG TABLET PO (20:47)
[2023-04-08] MEDS: Levothyroxine Sodium 25 MCG TABLET PO (06:41)
[2023-04-08] MEDS: Cholecalciferol (Vitamin D3) 25 MCG TABLET 50 MCG PO (08:54)
[2023-04-08] MEDS: polyethylene glycoL 3350 17 GM POWD.PACK PO (08:54)
[2023-04-08] MEDS: Atorvastatin Calcium 20 MG TABLET PO (08:55)
[2023-04-08] MEDS: Docusate Sodium 100 MG CAPSULE PO (08:55)
[2023-04-08] MEDS: Famotidine 20 MG TABLET PO (08:55)
[2023-04-08] MEDS: Ascorbic Acid 500 MG TABLET PO (08:55)
[2023-04-08 09:20] VITALS: BP 145/65; PULSE 82; RESP 18; TEMP 36.6; O2SAT 97
--- NOTE | 2023-04-08 10:46 | HO.PSYCHPN ---
Subjective Subjective Date of Service: 04/08/23 Reason For Visit: Schizoaffective Disorder Interim History: disorganized, difficult to understand. no actionable requests or complaints. per staff, calmer with increase in seroquel dosing. more independent than at admission. slept about 4 hours. overall, improving. Mental Status Exam Mental Status Exam Patient Appearance: Disheveled and Appropriate Patient Orientation: Person Level of Consciousness: Awake and Appropriate Patient Behavior: Guarded and Passive Mood Description: Calm Affect Description: Constricted Patient Cognition Impaired: Yes Ability to Follow Directions: Good Speech Pattern: Garbled, Rambling and Poor Articulation Hallucinations: None Delusions: Paranoid Ideation Thought Process: Distracted and Evasive Thought Content: positive for [place] Judgement: Fair Diagnostics Vital Signs (24Hr): Vital Signs - 24 hr 04/07/23 18:00 04/08/23 09:20 Temperature 97.6 F 98 F Pulse Rate 84 82 Respiratory Rate 18 18 Blood Pressure 140/65 H 145/65 H Pulse Oximetry 96 97 Oxygen Delivery Method Room Air Room Air BMI result Body Mass Index 27.1 Labs 04/06/23 07:23 04/06/23 07:23 Labs: Laboratory Results - last 48 hr 04/06/23 04/06/23 04/07/23 16:29 21:14 07:38 POC Glucose 339 H 312 H 232 H 04/07/23 04/07/23 04/07/23 11:21 16:44 20:44 POC Glucose 387 H* 240 H 227 H 04/08/23 07:46 POC Glucose 194 H Medications Medications Current Medications Acetaminophen (Acetaminophen 325 Mg Tablet) 650 mg PO Q6H PRN PRN Reason: Headache/Pain Mild Scale (1-3) Last Admin: 04/06/23 21:16 Dose: 650 mg Al Hydroxide/Mg Hydroxide (Magnesium Hydrox/Alum Hydrox 30 Ml Oral.Susp) 30 ml PO Q6H PRN PRN Reason: Heartburn/Nausea Ascorbic Acid (Ascorbic Acid 500 Mg Tablet) 500 mg PO BID [facility] Last Admin: 04/08/23 08:55 Dose: 500 mg Atorvastatin Calcium (Atorvastatin Calcium 20 Mg Tablet) 20 mg PO DAILY [facility] Last Admin: 04/08/23 08:55 Dose: 20 mg Calcium Carbonate (Calcium Carbonate 750 Mg Tab.Chew) 500 mg PO QID PRN PRN Reason: Heartburn Dextrose (Dextrose 50 % 25 Gm/50 Ml Syringe) 25 gm IVPUSH Q15M PRN; Protocol PRN Reason: per Hypoglycemia Standing Ord. Divalproex Sodium (Divalproex Sodium Er 500 Mg Tab.Er.24h) 1,000 mg PO BEDTIME [facility] Last Admin: 04/07/23 20:46 Dose: 1,000 mg Docusate Sodium (Docusate Sodium 100 Mg Capsule) 100 mg PO BID [facility] Last Admin: 04/08/23 08:55 Dose: 100 mg Doxazosin Mesylate (Doxazosin Mesylate 2 Mg Tablet) 2 mg PO BEDTIME [facility] Last Admin: 04/07/23 20:47 Dose: 2 mg Famotidine (Famotidine 20 Mg Tablet) 20 mg PO BID [facility] Last Admin: 04/08/23 08:55 Dose: 20 mg Glucose (Glucose Gel 15 Gm Gel..Gram.) 15 gm PO Q15M PRN; Protocol PRN Reason: per Hypoglycemia Standing Ord. Guaifenesin (Guaifenesin 200 Mg/10 Ml 10 Ml Liquid) 10 ml PO Q4H PRN PRN Reason: Cough Hydroxyzine HCl (Hydroxyzine Hcl 25 Mg Tablet) 25 mg PO Q6H PRN PRN Reason: Anxiety Last Admin: 04/06/23 21:16 Dose: 25 mg Insulin Human Lispro (Insulin Lispro 100 Unit/Ml 3 Ml Vial) 0 unit SUBCUT QIDACHS [facility]; Protocol Last Admin: 04/08/23 08:55 Dose: 2 unit Levothyroxine Sodium (Levothyroxine Sodium 25 Mcg Tablet) 25 mcg PO DAILY@0600 [facility] Last Admin: 04/08/23 06:41 Dose: 25 mcg Magnesium Hydroxide (Milk Of Magnesia 30 Ml Oral.Susp) 30 ml PO DAILY PRN PRN Reason: Constipation Metformin HCl (Metformin Hcl 1,000 Mg Tablet) 1,000 mg PO BIDWM [facility] Last Admin: 04/08/23 08:55 Dose: 1,000 mg Polyethylene Glycol (Polyethylene Glycol 3350 17 Gm Powd.Pack) 17 gm PO DAILY [facility] Last Admin: 04/08/23 08:54 Dose: 17 gm Quetiapine Fumarate (Quetiapine Fumarate 100 Mg Tablet) 100 mg PO BID@0800,1700 [facility] Last Admin: 04/08/23 08:55 Dose: 100 mg Quetiapine Fumarate (Quetiapine Fumarate 300 Mg Tablet) 300 mg PO BEDTIME [facility] Last Admin: 04/07/23 20:48 Dose: 300 mg Trazodone HCl (Trazodone Hcl 50 Mg Tablet) 50 mg PO BEDTIME MRX1 PRN PRN Reason: Insomnia Last Admin: 04/05/23 20:48 Dose: 50 mg Vitamin D (Cholecalciferol (Vitamin D3) 25 Mcg Tablet) 50 mcg PO DAILY [facility] Last Admin: 04/08/23 08:54 Dose: 50 mcg Allergies Allergies Allergy/AdvReac Type Severity Reaction Status Date / Time No Known Allergies Allergy Verified 03/29/23 18:39 Assessment & Plan Assessment & Plan (1) Schizoaffective disorder, bipolar type: Status: Acute Code(s): F25.0 - Schizoaffective disorder, bipolar type (2) Neurodegenerative cognitive impairment: Status: Acute Code(s): G31.9 - Degenerative disease of nervous system, unspecified Plan The patient is an elderly female with a past history of schizoaffective disorder bipolar type, with the legal guardian a corporate receive antipsychotics in the community referred to the emergency room due to increased agitation and nonsensical behaviors. When she was in the emergency room of [facility] she was diagnosed with a UTI and treated with antibiotics. So far her medical workout came back within normal limits but she remains grossly psychotic and disorganized, unable to understand lab warning and at this moment we do not have the guardian paperwork for the court ordered to receive antipsychotics. Plan 1. Gather collateral information. 2. Continue with antipsychotics and other medications prescribed admitted for Hospital. I assume that there full feeling the court order for antipsychotics. 3. Continue with medical workout. 4. Reassessment with results. 5. One-to-one observation for safety 6. Increase Seroquel up to 100 mg po tid on March 30. Seroquel has been increased on April 03 up to 100 mg p.o. b.i.d. and 200 mg p.o. q.h.s.. On April 06 we increase Seroquel up to 300 mg p.o. q.h.s. 7. PT consult for April 05. 8. Depakote was increased up to a 1000 mg p.o. q.h.s. on April 06 since her Depakote level was low. 78: disorganized, pressured. continue current mgmt. Reason for continued inpatient stay Substantial Risk for: inability to function and rapid decompensation Time Spent With Patient Time: Total time managing care of this patient today ____ minutes.
[2023-04-08 18:00] VITALS: BP 137/64; PULSE 95; RESP 18; TEMP 36; O2SAT 96
[2023-04-08] MEDS: Doxazosin Mesylate 2 MG TABLET PO (21:07)
[2023-04-09] MEDS: hydrOXYzine HCL 25 MG TABLET PO ×2 (02:38→09:18)
[2023-04-09] MEDS: traZODone HCL 50 MG TABLET PO (02:38)
[2023-04-09] MEDS: Levothyroxine Sodium 25 MCG TABLET PO (06:11)
[2023-04-09 08:27] VITALS: BP 134/90; PULSE 90; RESP 18; TEMP 36.6; O2SAT 97
[2023-04-09] MEDS: Atorvastatin Calcium 20 MG TABLET PO (08:54)
[2023-04-09] MEDS: Cholecalciferol (Vitamin D3) 25 MCG TABLET 50 MCG PO (08:54)
[2023-04-09] MEDS: Docusate Sodium 100 MG CAPSULE PO (08:54)
[2023-04-09] MEDS: Ascorbic Acid 500 MG TABLET PO (08:54)
[2023-04-09] MEDS: polyethylene glycoL 3350 17 GM POWD.PACK PO (08:55)
[2023-04-09 09:15] VITALS: BP 150/88; PULSE 128; RESP 20; TEMP 36.2; O2SAT 95
[2023-04-09] MEDS: Famotidine 20 MG TABLET PO (09:18)
--- NOTE | 2023-04-09 11:12 | HO.PSYCHPN ---
Subjective Subjective Date of Service: 04/09/23 Reason For Visit: Schizoaffective Disorder Interim History: pt seen in her room, feculent brown vomitus on a shawanda positioned on her torso. non-stop talking, impossible to parse. per staff, multiple episodes of large-volume brown to black feculent vomitus today. gagging on vomit, rhinorrhea with thickened sputum. diaphoretic, pulse to 128. did not eat breakfast this morning. Mental Status Exam Mental Status Exam Patient Appearance: Disheveled and Appropriate Patient Orientation: Person Level of Consciousness: Awake and Appropriate Patient Behavior: Guarded and Passive Mood Description: Calm Affect Description: Constricted Patient Cognition Impaired: Yes Ability to Follow Directions: Good Speech Pattern: Garbled, Rambling and Poor Articulation Hallucinations: None Delusions: Paranoid Ideation Thought Process: Distracted and Evasive Thought Content: positive for [place] Judgement: Fair Diagnostics Vital Signs (24Hr): Vital Signs - 24 hr 04/08/23 18:00 04/09/23 08:27 Temperature 96.8 F 97.9 F Pulse Rate 95 90 Respiratory Rate 18 18 Blood Pressure 137/64 134/90 H Pulse Oximetry 96 97 Oxygen Delivery Method Room Air Room Air BMI result Body Mass Index 27.1 Labs 04/06/23 07:23 04/06/23 07:23 Labs: Laboratory Results - last 48 hr 04/07/23 04/07/23 04/07/23 11:21 16:44 20:44 POC Glucose 387 H* 240 H 227 H 04/08/23 04/08/23 04/08/23 07:46 11:17 16:23 POC Glucose 194 H 334 H 270 H 04/08/23 04/09/23 19:53 07:48 POC Glucose 156 H 248 H Medications Medications Current Medications Acetaminophen (Acetaminophen 325 Mg Tablet) 650 mg PO Q6H PRN PRN Reason: Headache/Pain Mild Scale (1-3) Last Admin: 04/06/23 21:16 Dose: 650 mg Al Hydroxide/Mg Hydroxide (Magnesium Hydrox/Alum Hydrox 30 Ml Oral.Susp) 30 ml PO Q6H PRN PRN Reason: Heartburn/Nausea Ascorbic Acid (Ascorbic Acid 500 Mg Tablet) 500 mg PO BID [facility] Last Admin: 04/09/23 08:54 Dose: 500 mg Atorvastatin Calcium (Atorvastatin Calcium 20 Mg Tablet) 20 mg PO DAILY [facility] Last Admin: 04/09/23 08:54 Dose: 20 mg Calcium Carbonate (Calcium Carbonate 750 Mg Tab.Chew) 500 mg PO QID PRN PRN Reason: Heartburn Dextrose (Dextrose 50 % 25 Gm/50 Ml Syringe) 25 gm IVPUSH Q15M PRN; Protocol PRN Reason: per Hypoglycemia Standing Ord. Divalproex Sodium (Divalproex Sodium Er 500 Mg Tab.Er.24h) 1,000 mg PO BEDTIME [facility] Last Admin: 04/08/23 21:07 Dose: 1,000 mg Docusate Sodium (Docusate Sodium 100 Mg Capsule) 100 mg PO BID [facility] Last Admin: 04/09/23 08:54 Dose: 100 mg Doxazosin Mesylate (Doxazosin Mesylate 2 Mg Tablet) 2 mg PO BEDTIME [facility] Last Admin: 04/08/23 21:07 Dose: 2 mg Famotidine (Famotidine 20 Mg Tablet) 20 mg PO BID [facility] Last Admin: 04/09/23 09:18 Dose: 20 mg Glucose (Glucose Gel 15 Gm Gel..Gram.) 15 gm PO Q15M PRN; Protocol PRN Reason: per Hypoglycemia Standing Ord. Guaifenesin (Guaifenesin 200 Mg/10 Ml 10 Ml Liquid) 10 ml PO Q4H PRN PRN Reason: Cough Hydroxyzine HCl (Hydroxyzine Hcl 25 Mg Tablet) 25 mg PO Q6H PRN PRN Reason: Anxiety Last Admin: 04/09/23 09:18 Dose: 25 mg Insulin Human Lispro (Insulin Lispro 100 Unit/Ml 3 Ml Vial) 0 unit SUBCUT QIDACHS [facility]; Protocol Last Admin: 04/09/23 08:55 Dose: 4 unit Levothyroxine Sodium (Levothyroxine Sodium 25 Mcg Tablet) 25 mcg PO DAILY@0600 [facility] Last Admin: 04/09/23 06:11 Dose: 25 mcg Magnesium Hydroxide (Milk Of Magnesia 30 Ml Oral.Susp) 30 ml PO DAILY PRN PRN Reason: Constipation Metformin HCl (Metformin Hcl 1,000 Mg Tablet) 1,000 mg PO BIDWM [facility] Last Admin: 04/09/23 08:54 Dose: 1,000 mg Polyethylene Glycol (Polyethylene Glycol 3350 17 Gm Powd.Pack) 17 gm PO DAILY [facility] Last Admin: 04/09/23 08:55 Dose: 17 gm Quetiapine Fumarate (Quetiapine Fumarate 100 Mg Tablet) 100 mg PO BID@0800,1700 [facility] Last Admin: 04/09/23 08:54 Dose: 100 mg Quetiapine Fumarate (Quetiapine Fumarate 300 Mg Tablet) 300 mg PO BEDTIME [facility] Last Admin: 04/08/23 21:07 Dose: 300 mg Trazodone HCl (Trazodone Hcl 50 Mg Tablet) 50 mg PO BEDTIME MRX1 PRN PRN Reason: Insomnia Last Admin: 04/09/23 02:38 Dose: 50 mg Vitamin D (Cholecalciferol (Vitamin D3) 25 Mcg Tablet) 50 mcg PO DAILY [facility] Last Admin: 04/09/23 08:54 Dose: 50 mcg Allergies Allergies Allergy/AdvReac Type Severity Reaction Status Date / Time No Known Allergies Allergy Verified 03/29/23 18:39 Assessment & Plan Assessment & Plan (1) Schizoaffective disorder, bipolar type: Status: Acute Code(s): F25.0 - Schizoaffective disorder, bipolar type (2) Neurodegenerative cognitive impairment: Status: Acute Code(s): G31.9 - Degenerative disease of nervous system, unspecified Plan The patient is an elderly female with a past history of schizoaffective disorder bipolar type, with the legal guardian a corporate receive antipsychotics in the community referred to the emergency room due to increased agitation and nonsensical behaviors. When she was in the emergency room of [facility] she was diagnosed with a UTI and treated with antibiotics. So far her medical workout came back within normal limits but she remains grossly psychotic and disorganized, unable to understand lab warning and at this moment we do not have the guardian paperwork for the court ordered to receive antipsychotics. Plan 1. Gather collateral information. 2. Continue with antipsychotics and other medications prescribed admitted for Hospital. I assume that there full feeling the court order for antipsychotics. 3. Continue with medical workout. 4. Reassessment with results. 5. One-to-one observation for safety 6. Increase Seroquel up to 100 mg po tid on March 30. Seroquel has been increased on April 03 up to 100 mg p.o. b.i.d. and 200 mg p.o. q.h.s.. On April 06 we increase Seroquel up to 300 mg p.o. q.h.s. 7. PT consult for April 05. 8. Depakote was increased up to a 1000 mg p.o. q.h.s. on April 06 since her Depakote level was low. 04/08: disorganized, pressured. continue current mgmt. 04/09: no change in psych presentation. large volume of feculent vomitus today; med-consult placed, COVID testing ordered. Reason for continued inpatient stay Substantial Risk for: inability to function and rapid decompensation Time Spent With Patient Time: Total time managing care of this patient today __25__ minutes.
--- NOTE | 2023-04-09 11:48 | PM.EVENT ---
Event Note Date of Service: 04/09/23 Event Note: Consult placed to hospitalist service for evaluation of possible feculent vomitus. Per nursing, patient was in a heated disagreement with her roommate at the time, yelling and screaming. Pt was noticably aggitated. Per nursing, she became diaphoretic, gagging with thick white phlegm coughed up and coming from the nose. VS at that time showed HR 128, BP 150/88, no hypoxia, lungs CTA by nursing assessment. She was able to take pepcid and atarax orally. She verbalized I'm gagging and had episode large dark brown vomitus. Psychiatrist was called to bedside and there was concern for feculent vomitus. Pt moved to private room. On my exam, pt remains intermittently aggitated, which is her baseline. Evaluated dried vomitus on disposable underpad which was brown and foul smelling but acidic smelling, less likely stool. No hematemesis. HR improved to 95. Abd is soft, ND, NT until patient becomes aggitated and flexes abdominal muscles. She is non toxic appearing. Low suspicion for bowel obstruction at this time. While in the ED, there was concern for coffee-ground emesis but H/H stable on arrival. Will recheck BMP, CBC, and will also attempt KUB. Will follow for results. Time Spent With Patient Time: Total time managing care of this patient today 20 minutes.
--- NOTE | 2023-04-09 12:22 | PC.NURSE ---
Around 0900 patient became very anxious and upset about being washed up in the am. She was yelling out and having increase psychomotor activity. Her roommate was yelling out and swearing at her and at the staff that was trying to do ADL'S with her also. Poppy was diaphoretic, nonsensical and spitting up small amounts of thick white mucous. Her blood sugar was 248, coverage given with am medications. She later received Atarax for increased anxiety with effect. Her vitals were B/P 140/88, Z266-725, R20, T97.2 and O2 Sat 95% on room air during the episode. She continued to gag and eventually threw up a large amount of dark brown liquid. Her nose was running. Abdomen soft and non-tender, positive bowel sounds all 4 quadrants,lung sounds clear to auscultation and no SOB. Seen by Dr. Westbrook and new orders obtained. Flory WARD visited and new orders obtained. Resident now calm, denies nausea and pain but refuses to eat or drink anything. OK per Flory WARD to hold 1130 insulin coverage, blood sugar 194. Pulse now 96, last B/P 151/64. Refused blood work draw. Bed rest.
--- NOTE | 2023-04-09 15:24 | PM.EVENT ---
Event Note Date of Service: 04/09/23 Event Note: Pt seen in follow up for nausea/vomiting. Pt has cognitive impairment at baseline and is not a good historian. Initially there was concern for feculent vomitus given brown discoloration of vomitus. However, low suspicion for this and KUB is negative for obstruction. Second episode vomitus again noted to be brown, no coffee-ground emesis with pinkish tinge to vomitus. There is no bright red blood noted in vomitus. Pt does have history of MWT. CBC was ordered to ensure stability of H/H however patient is refusing. BMP also ordered. Did check gastric contents which was positive for blood. In the ED, stool occult positive. Last BM was monday per nursing. GI consult placed. Pt has also been noted to be coughing with white sputum production. Per RN, lungs CTA, however refuses my lung exam. Abd is soft, nontender, nondistended, +BS. Pt coughed immediately with RN swallow eval. Will keep her NPO and DIVISION MANAGER swallow eval ordered. Can use isopropyl alcohol swabs inhaled to help with nausea/vomiting or zofran ODT prn but ensure patient does not swallow pill. Encourage lab draw for CBC to ensure stability of H/H. Time Spent With Patient Time: Total time managing care of this patient today ____ minutes.
[2023-04-09 16:41] VITALS: BP 122/58; PULSE 101; RESP 18; TEMP 36.9; O2SAT 93
--- NOTE | 2023-04-09 18:43 | PC.NURSE ---
Patient continues to vomit moderate amount of brown to dark brown fluids. Patient would not inhale alcohol wipe. Zofran given, dissolved on tongue and patient immediately vomited again. Patient diaphoretic. VSS at 1640. Flory WARD updated. Will attempt IV insertion now.
--- NOTE | 2023-04-09 19:08 | PC.NURSE ---
20 Gauge IV inserted into left anticubital area at 1900 and secured. Patient now has a sitter for IV maintenance. Patient had an x large bm and then immediately vomited up a large amount of brown liquid. Will apply Scopolamine patch as ordered.
--- NOTE | 2023-04-09 23:10 | PM.PSYDC ---
DS: Providers Provider Date of Service: 04/09/23 Date of admission: 03/29/23 17:47 Primary care physician: Unknown Physician Consults: 03/29/23 19:38 Consult to Hospitalist Routine Comment: Consulting Provider: Hospitalist Reason For Exam: admission physical 04/05/23 22:13 Consult to Hospitalist Routine Comment: Consulting Provider: Hospitalist Reason For Exam: reconsult control of diabetes 04/09/23 11:08 Consult to Hospitalist Routine Comment: Consulting Provider: Hospitalist Reason For Exam: copious feculent vomitus 04/09/23 15:22 Consult to Gastroenterology Routine Consulting Provider: Lilian Watts Reason for consultation: hemetemesis DS: Diagnosis Discharge Diagnosis (1) Schizoaffective disorder, bipolar type: Status: Acute (2) Neurodegenerative cognitive impairment: Status: Acute DS: Medications Discharge Medications Home Medications: Home Medications Medication Instructions Recorded Confirmed Lactobacillus acidophilus PO DAILY 03/30/23 Miralax 17 g PO DAILY constipation 03/30/23 03/30/23 Tums 500 500 mg PO QID PRN Heartburn 03/30/23 03/30/23 acetaminophen 500 mg PO Q6-8H PRN Fever Or Pain 03/30/23 03/30/23 ascorbic acid (vitamin C) 500 mg PO BID supplement 03/30/23 03/30/23 atorvastatin 20 tab PO DAILY 03/30/23 03/30/23 cholecalciferol (vitamin D3) 2,000 units PO DAILY 03/30/23 03/30/23 clonazepam 1 mg PO BEDTIME 03/30/23 03/30/23 clonazepam 1 mg PO DAILY PRN Anxiety 03/30/23 03/30/23 divalproex 500 mg PO BEDTIME 03/30/23 03/30/23 docusate sodium 100 mg PO BID 03/30/23 03/30/23 guaifenesin 200 mg PO Q4-5H PRN Cough 03/30/23 03/30/23 levothyroxine 25 mcg PO 03/30/23 metformin 850 mg PO DAILY 03/30/23 03/30/23 methenamine hippurate 1 tab PO BID UTI 03/30/23 03/30/23 terazosin 2 mg PO BEDTIME 03/30/23 03/30/23 Mental Status Exam Mental Status Exam Patient Appearance: Disheveled and Appropriate Patient Orientation: Person Level of Consciousness: Awake and Appropriate Patient Behavior: Guarded and Passive Mood Description: Calm Affect Description: Constricted Patient Cognition Impaired: Yes Ability to Follow Directions: Good Speech Pattern: Garbled, Rambling and Poor Articulation Hallucinations: None Delusions: Paranoid Ideation Thought Process: Distracted and Evasive Thought Content: positive for [place] Judgement: Fair Data Data Completed and Pending Completed studies during hospitalization [Text1]: 04/03/23 04/03/23 04/04/23 08:01 19:38 07:43 WBC RBC Hgb Hct MCV MCH MCHC RDW Plt Count MPV Immature Gran % (Auto) Neut % (Auto) Lymph % (Auto) Dolores % (Auto) Eos % (Auto) Baso % (Auto) Lymph # (Auto) Dolores # (Auto) Eos # (Auto) Baso # (Auto) Abs Immat Gran (auto) Absolute Neuts (auto) Absolute Nucleated RBC Nucleated RBC % (auto) Sodium Potassium Chloride Carbon Dioxide Anion Gap BUN Creatinine Estim Creat Clear Calc Estimated GFR POC Glucose 278 H 282 H 239 H Random Glucose Estimat Average Glucose Hemoglobin A1c % Calcium Total Bilirubin Direct Bilirubin AST ALT Alkaline Phosphatase Total Protein Albumin TSH Gastric Occult Blood Valproic Acid COVID-19 ([facility]) [email or web address] 04/05/23 04/05/23 04/05/23 06:52 07:52 21:38 WBC RBC Hgb Hct MCV MCH MCHC RDW Plt Count MPV Immature Gran % (Auto) Neut % (Auto) Lymph % (Auto) Dolores % (Auto) Eos % (Auto) Baso % (Auto) Lymph # (Auto) Dolores # (Auto) Eos # (Auto) Baso # (Auto) Abs Immat Gran (auto) Absolute Neuts (auto) Absolute Nucleated RBC Nucleated RBC % (auto) Sodium Potassium Chloride Carbon Dioxide Anion Gap BUN Creatinine Estim Creat Clear Calc Estimated GFR POC Glucose 275 H 236 H 391 H* Random Glucose Estimat Average Glucose Hemoglobin A1c % Calcium Total Bilirubin Direct Bilirubin AST ALT Alkaline Phosphatase Total Protein Albumin TSH Gastric Occult Blood Valproic Acid COVID-19 ([facility]) COVID-19 [employer] 04/06/23 04/06/23 04/06/23 07:23 07:23 07:23 WBC 7.9 RBC 3.62 L Hgb 10.9 L Hct 31.5 L MCV 87.0 MCH 30.1 MCHC 34.6 RDW 14.2 Plt Count 189 MPV 11.5 Immature Gran % (Auto) 0.4 Neut % (Auto) 51.8 Lymph % (Auto) 34.9 Dolores % (Auto) 9.9 Eos % (Auto) 2.7 Baso % (Auto) 0.3 Lymph # (Auto) 2.8 Dolores # (Auto) 0.8 Eos # (Auto) 0.2 Baso # (Auto) 0.0 Abs Immat Gran (auto) 0.03 Absolute Neuts (auto) 4.1 Absolute Nucleated RBC 0.000 Nucleated RBC % (auto) 0.0 Sodium 136 Potassium 4.2 Chloride 105 Carbon Dioxide 19 L Anion Gap 18 BUN 20 H Creatinine 0.65 Estim Creat Clear Calc TNP Estimated GFR > 60 POC Glucose Random Glucose 274 H Estimat Average Glucose 174 Hemoglobin A1c % 7.7 Calcium 10.2 Total Bilirubin 0.5 Direct Bilirubin 0.2 AST 23 ALT 37 H Alkaline Phosphatase 61 Total Protein 6.4 L Albumin 3.4 L TSH 1.83 Gastric Occult Blood Valproic Acid COVID-19 ([facility]) [email or web address] 04/06/23 04/06/23 04/06/23 07:23 07:53 16:29 WBC RBC Hgb Hct MCV MCH MCHC RDW Plt Count MPV Immature Gran % (Auto) Neut % (Auto) Lymph % (Auto) Dolores % (Auto) Eos % (Auto) Baso % (Auto) Lymph # (Auto) Dolores # (Auto) Eos # (Auto) Baso # (Auto) Abs Immat Gran (auto) Absolute Neuts (auto) Absolute Nucleated RBC Nucleated RBC % (auto) Sodium Potassium Chloride Carbon Dioxide Anion Gap BUN Creatinine Estim Creat Clear Calc Estimated GFR POC Glucose 264 H 339 H Random Glucose Estimat Average Glucose Hemoglobin A1c % Calcium Total Bilirubin Direct Bilirubin AST ALT Alkaline Phosphatase Total Protein Albumin TSH Gastric Occult Blood Valproic Acid 22.5 L COVID-19 ([facility]) [email or web address] 04/06/23 04/07/23 04/07/23 21:14 07:38 11:21 WBC RBC Hgb Hct MCV MCH MCHC RDW Plt Count MPV Immature Gran % (Auto) Neut % (Auto) Lymph % (Auto) Dolores % (Auto) Eos % (Auto) Baso % (Auto) Lymph # (Auto) Dolores # (Auto) Eos # (Auto) Baso # (Auto) Abs Immat Gran (auto) Absolute Neuts (auto) Absolute Nucleated RBC Nucleated RBC % (auto) Sodium Potassium Chloride Carbon Dioxide Anion Gap BUN Creatinine Estim Creat Clear Calc Estimated GFR POC Glucose 312 H 232 H 387 H* Random Glucose Estimat Average Glucose Hemoglobin A1c % Calcium Total Bilirubin Direct Bilirubin AST ALT Alkaline Phosphatase Total Protein Albumin TSH Gastric Occult Blood Valproic Acid COVID-19 ([facility]) COVID-19 Clin Com 04/07/23 04/07/23 04/08/23 16:44 20:44 07:46 WBC RBC Hgb Hct MCV MCH MCHC RDW Plt Count MPV Immature Gran % (Auto) Neut % (Auto) Lymph % (Auto) Dolores % (Auto) Eos % (Auto) Baso % (Auto) Lymph # (Auto) Dolores # (Auto) Eos # (Auto) Baso # (Auto) Abs Immat Gran (auto) Absolute Neuts (auto) Absolute Nucleated RBC Nucleated RBC % (auto) Sodium Potassium Chloride Carbon Dioxide Anion Gap BUN Creatinine Estim Creat Clear Calc Estimated GFR POC Glucose 240 H 227 H 194 H Random Glucose Estimat Average Glucose Hemoglobin A1c % Calcium Total Bilirubin Direct Bilirubin AST ALT Alkaline Phosphatase Total Protein Albumin TSH Gastric Occult Blood Valproic Acid COVID-19 ([facility]) COVID-19 Clin Com 04/08/23 04/08/23 04/08/23 11:17 16:23 19:53 WBC RBC Hgb Hct MCV MCH MCHC RDW Plt Count MPV Immature Gran % (Auto) Neut % (Auto) Lymph % (Auto) Dolores % (Auto) Eos % (Auto) Baso % (Auto) Lymph # (Auto) Dolores # (Auto) Eos # (Auto) Baso # (Auto) Abs Immat Gran (auto) Absolute Neuts (auto) Absolute Nucleated RBC Nucleated RBC % (auto) Sodium Potassium Chloride Carbon Dioxide Anion Gap BUN Creatinine Estim Creat Clear Calc Estimated GFR POC Glucose 334 H 270 H 156 H Random Glucose Estimat Average Glucose Hemoglobin A1c % Calcium Total Bilirubin Direct Bilirubin AST ALT Alkaline Phosphatase Total Protein Albumin TSH Gastric Occult Blood Valproic Acid COVID-19 ([facility]) COVID-19 Clin Com 04/09/23 04/09/23 04/09/23 07:48 11:23 12:45 WBC RBC Hgb Hct MCV MCH MCHC RDW Plt Count MPV Immature Gran % (Auto) Neut % (Auto) Lymph % (Auto) Dolores % (Auto) Eos % (Auto) Baso % (Auto) Lymph # (Auto) Dolores # (Auto) Eos # (Auto) Baso # (Auto) Abs Immat Gran (auto) Absolute Neuts (auto) Absolute Nucleated RBC Nucleated RBC % (auto) Sodium Potassium Chloride Carbon Dioxide Anion Gap BUN Creatinine Estim Creat Clear Calc Estimated GFR POC Glucose 248 H 193 H Random Glucose Estimat Average Glucose Hemoglobin A1c % Calcium Total Bilirubin Direct Bilirubin AST ALT Alkaline Phosphatase Total Protein Albumin TSH Gastric Occult Blood Valproic Acid COVID-19 ([facility]) Negative COVID-19 Clin Com See Note 04/09/23 04/09/23 04/09/23 14:40 16:33 17:46 WBC 9.0 RBC 4.19 L Hgb 12.5 Hct 36.9 L MCV 88.1 MCH 29.8 MCHC 33.9 RDW 14.5 Plt Count 294 D MPV 11.4 Immature Gran % (Auto) 0.3 Neut % (Auto) 66.1 Lymph % (Auto) 26.2 Dolores % (Auto) 7.1 Eos % (Auto) 0.2 Baso % (Auto) 0.1 Lymph # (Auto) 2.4 Dolores # (Auto) 0.6 Eos # (Auto) 0.0 Baso # (Auto) 0.0 Abs Immat Gran (auto) 0.03 Absolute Neuts (auto) 6.0 Absolute Nucleated RBC 0.000 Nucleated RBC % (auto) 0.0 Sodium Potassium Chloride Carbon Dioxide Anion Gap BUN Creatinine Estim Creat Clear Calc Estimated GFR POC Glucose 229 H Random Glucose Estimat Average Glucose Hemoglobin A1c % Calcium Total Bilirubin Direct Bilirubin AST ALT Alkaline Phosphatase Total Protein Albumin TSH Gastric Occult Blood POSITIVE H Valproic Acid COVID-19 ([facility]) COVID-19 Clin Com 04/09/23 17:46 WBC RBC Hgb Hct MCV MCH MCHC RDW Plt Count MPV Immature Gran % (Auto) Neut % (Auto) Lymph % (Auto) Dolores % (Auto) Eos % (Auto) Baso % (Auto) Lymph # (Auto) Dolores # (Auto) Eos # (Auto) Baso # (Auto) Abs Immat Gran (auto) Absolute Neuts (auto) Absolute Nucleated RBC Nucleated RBC % (auto) Sodium 140 Potassium 4.0 Chloride 102 Carbon Dioxide 25 Anion Gap 17 BUN 21 H Creatinine 0.67 Estim Creat Clear Calc 69.3 Estimated GFR > 60 POC Glucose Random Glucose 215 H Estimat Average Glucose Hemoglobin A1c % Calcium 10.9 H D Total Bilirubin Direct Bilirubin AST ALT Alkaline Phosphatase Total Protein Albumin TSH Gastric Occult Blood Valproic Acid COVID-19 ([facility]) COVID-19 Clin Com Imaging Diagnostic Imaging Impressions KUB X-Ray 04/09/23 13:24 IMPRESSION: Moderate constipation. Chest X-Ray 04/09/23 15:43 IMPRESSION: Mild cardiomegaly. No acute process seen. DS: Summary Hospital Course Hospital Course: per 03/30 admission note: The patient is a 78-year-old female, with a long history of schizoaffective disorder bipolar type and other several medical comorbidities transfer from [address] due to agitation.? According to the crisis assessment, the patient was brought to the emergency room from caregivers in the community since she was more agitated irritable nonsensical.? Over the emergency room [facility], she was assessed and a full medical workout was done and she was found that she has a UTI.? CT scan and other blood work came back negative.? The patient was treated medically, reassessed by Psychiatry and since the patient was not at her baseline with agitation and nonsensical behaviors she was transferring to this facility for psychiatric stabilization.? The patient has a guardian, a community Che order another documents but at this moment we have not been able to for have available does papers.? I assessed the patient at bed sign and she was naked covered with a blanket, the patient refused to wear any clothes and she was nonsensical, unable to provide information, with mild psychomotor agitation.? The patient was unable to understand webb warning or any other statement.? She was referred by to the medical team to continue medical workout. Past Psychiatric History: According to the chart, the patient carries a diagnosis of schizoaffective disorder bipolar type, she has a guardian, court ordered to receive antipsychotics that she has been in the hospital several times for psychiatric conditions.? At this moment the patient is a poor historian able to provide any history. Medical Evaluation Reviewed: Yes PMF Family History: Unable to assess Social History: The patient lives in the community with several caregivers, she is a guardian a court order to receive antipsychotics. Substance History: Unable to assess Trauma History: Unable to assess Precis: The patient is an elderly female with a past history of schizoaffective disorder bipolar type, with the legal guardian a corporate receive antipsychotics in the community referred to the emergency room due to increased agitation and nonsensical behaviors.? When she was [facility] she was diagnosed with a UTI and treated with antibiotics.? So far her medical workout came back within normal limits but she remains grossly psychotic and disorganized, unable to understand lab warning and at this moment we do not have the guardian paperwork for the court ordered to receive antipsychotics.? Plan 1. Gather collateral information.? 2. Continue with antipsychotics and other medications prescribed admitted for Hospital.? I assume that there full feeling the court order for antipsychotics.? 3. Continue with medical workout.? 4. Reassessment with results.? 5. One-to-one observation for safety 6. Increase Seroquel up to 100 mg po tid on March 30.? Seroquel has been increased on April 03 up to 100 mg p.o. b.i.d. and 200 mg p.o. q.h.s..? On April 06 we increase Seroquel up to 300 mg p.o. q.h.s. 7. PT consult for April 05. 8. Depakote was increased up to a 1000 mg p.o. q.h.s. on April 06 since her Depakote level was low. 04/08:? disorganized, pressured.? continue current mgmt. 04/09:? no change in psych presentation.? large volume of feculent vomitus today; med-consult placed, COVID testing ordered. transferred to medicine for w/u of GI bleed, as described below. per 04/09 medicine admission note: 78-year-old female with history of hypertension, hyperlipidemia, hypothyroidism, insulin-dependent type 2 diabetes, recurrent UTI, history of Barbara-Chavez tears, neurocognitive impairment, schizoaffective disorder and bipolar disorder being transferred to hospitalist service from Geriatric Psychiatry where she had been admitted for increased agitation for evaluation of hematemesis.? Patient was evaluated on geriatric psych earlier today for nausea and vomiting.? Per nursing staff, the patient and her roommate at the time had been arguing, yelling back and forth and patient became diaphoretic, very anxious, and vomited a brown emesis though there was no coffee-ground appearance or bright red blood that time.? There was concern due to the odor of the vomitus that this may have been feculent, but after further evaluation, does not appear to be the case. Abd exam at that time was benign and KUB was negative for obstruction though did show moderate constipation.? She had been intermittently tachycardic during the day with increased agitation/anxiety noted by nursing staff.? She did have additional episode of brown emesis with blood tinge and gastric occult was positive for blood.? She then began coughing and there was concern for aspiration so she was made NPO.? Chest x-ray was negative.? She was given zofran ODT for the N/V and immediately vomiting dark brown/black emesis with tiny smear pink. H/H had been repeat and was stable though increased from baseline. Vitals stable though mildly tachycardic on admission at 101. No hypotension, hypoxia.? No leukocytosis.? H/H 12.5/36.9%.? Renal function baseline, electrolyte levels normal except for calcium 10.9.? POC glucose 229.? Negative for COVID-19. Case discussed with Dr. Westbrook with recommendation for admission to med/tele for further evaluation and management of UGIB. Case also discussed with Dr. Watts. Time Spent with Patient Time attestation: Total time managing care of this patient today ____ minutes. Time spent: Greater than 30 minutes Discharge Plan Discharge Anticipated Discharge Date/Time: 04/09/23 18:47 Patient Disposition: Xfer Acute Care Hospital Discharge Diagnosis: Neurodegenerative Disorder Schizoaffective Disorder Referrals: Physician,Unknown J [Primary Care Provider] - 1 Week Discharge Medications: Continued atorvastatin 20 tab PO DAILY Lactobacillus acidophilus PO DAILY Rx Instructions: 1 tab daily Miralax 17 g PO DAILY Rx Instructions: 17 grams daily Tums 500 500 mg PO QID PRN (Reason: Heartburn) acetaminophen 500 mg PO Q6-8H PRN (Reason: Fever Or Pain) ascorbic acid (vitamin C) 500 mg PO BID cholecalciferol (vitamin D3) 2,000 units PO DAILY clonazepam 1 mg PO BEDTIME clonazepam 1 mg PO DAILY PRN (Reason: Anxiety) divalproex 500 mg PO BEDTIME docusate sodium 100 mg PO BID guaifenesin 200 mg PO Q4-5H PRN (Reason: Cough) levothyroxine tablet 25 mcg PO metformin 850 mg PO DAILY methenamine hippurate 1 tab PO BID Rx Instructions: 1 g po BID terazosin 2 mg PO BEDTIME Discharge Orders: Discharge Order (Routine); Ordered 04/09/23 Ordered By: Juan C Westbrook Diet: NPO Activity on Discharge: bed rest Stand Alone Forms: Patient Portal Discharge page Care Plan Goals: address acute medical issues Health Concerns: GI Bleed Plan of Treatment: transfer to hospitalist service Assessment: not at imminent risk of harm to self or others in controlled and supportive environment Discharge Date/Time: 04/09/23 20:11
--- NOTE | 2023-04-10 10:14 | PM.GICN ---
History of Present Illness Data of Consult Service Date: 04/10/23 Requesting physician: Flory Lopez Primary Care Provider: Unknown Physician HPI Reason for consult: Hematemesis This is a 78 y.o F with PMH of schizoffective disorder, bipolar disorder, who is currently admitted to the hospital for increased agitation and was transferred to medical floor for increased nausea and vomiting. History was obtained from the provoder as pt has significant cognitive impairement. Reportedly, she developed nausea and vomiting yest morning which was initially streaked with blood and then became coffee grounds. Also became tachycardic. She was therefore transferred medicine for further evaluation. Gastroenterology has been consulted for evaluation. Per collateral info from RN and sitter, no further vomiting as of this morning. There is also concern for gagging and retching initiated by the patient when she is irritable. Pt herself denies any abd pain. Says is still nauseous. No diarrhea. Review of Systems Review of Systems: Yes Unobtainable due to mental condition PMFSH Past Medical History Medical History Hyperlipidemia Hypertension Hypothyroidism Insulin dependent type 2 diabetes mellitus Barbara-Fatima tear Neurodegenerative cognitive impairment Recurrent UTI Schizoaffective disorder, bipolar type Social History Social History Household Members: Unknown / Unable to assess Household Members Other:: has ranch hand livestock Housing: Apartment Do you presently have visiting nurse or other home services: Yes (pt has ranch hand livestock and goes to adult day programs) Unable to assess alcohol history related to: Unable to respond Patient Tobacco Use Status: Former Tobacco user Tobacco use type: Cigarette e-Cigarette/Vaping Use: Never Used Currently Displaying Signs/Symptoms of Drug Intoxication Withdrawal: No Advance Directives: No Advance Directives Information Provided: No Patient : No service: No Sexual orientation: Straight/Heterosexual Meds Allergies Allergy/AdvReac Type Severity Reaction Status Date / Time No Known Allergies Allergy Verified 03/29/23 18:39 Home Medications Medication Instructions Recorded Confirmed Last Taken Type Lactobacillus acidophilus 1 cap PO DAILY 03/30/23 04/10/23 Unknown History Miralax 17 g PO DAILY constipation 03/30/23 04/10/23 Unknown History Tums 500 500 mg PO QID PRN Heartburn 03/30/23 04/10/23 Unknown History acetaminophen 500 mg PO Q6-8H PRN Fever Or Pain 03/30/23 04/10/23 Unknown History ascorbic acid (vitamin C) 500 mg PO BID supplement 03/30/23 04/10/23 Unknown History atorvastatin 20 mg PO DAILY 03/30/23 04/10/23 Unknown History cholecalciferol (vitamin D3) 2,000 units PO DAILY 03/30/23 04/10/23 Unknown History clonazepam 1 mg PO BEDTIME 03/30/23 04/10/23 Unknown History clonazepam 1 mg PO DAILY PRN Anxiety 03/30/23 04/10/23 Unknown History divalproex 1,000 mg PO BEDTIME 03/30/23 04/10/23 Unknown History docusate sodium 100 mg PO BID 03/30/23 04/10/23 Unknown History guaifenesin 200 mg PO Q4-5H PRN Cough 03/30/23 04/10/23 Unknown History levothyroxine 25 mcg PO DAILY 03/30/23 04/10/23 Unknown History methenamine hippurate 1 tab PO BID UTI 03/30/23 04/10/23 Unknown History terazosin 2 mg PO BEDTIME 03/30/23 04/10/23 Unknown History metformin 1,000 mg tablet 1,000 mg PO BIDWMEAL 04/10/23 04/10/23 Unknown History quetiapine 300 mg tablet (Seroquel) 300 mg PO BEDTIME 04/10/23 04/10/23 Unknown History Physical Exam Vital Signs: Vital Signs: Last Vital Signs Temp 98.5 F 04/09/23 16:41 Pulse 101 H 04/09/23 16:41 Resp 18 04/09/23 16:41 BP 122/58 L 04/09/23 16:41 Pulse Ox 93 04/09/23 16:41 O2 Del Method Room Air 04/09/23 16:41 BMI result Body Mass Index 27.1 Limited exam performed as pt agitated. Non toxic appearing Mumbled speech Abd nondistended Results Labs 04/09/23 17:46 04/09/23 17:46 Labs: Short CBC 04/09/23 Range/Units 17:46 WBC 9.0 (4.8-10.8) X10*3/uL Hgb 12.5 (12.0-16.0) g/dl Hct 36.9 L (37.0-47.0) % Plt Count 294 D (160-400) X10*3/uL BMP 04/09/23 17:46 Sodium 140 Potassium 4.0 Chloride 102 Carbon Dioxide 25 BUN 21 H Creatinine 0.67 Calcium 10.9 H D Assessment and Plan (1) Vomiting: Status: Acute (2) UGIB (upper gastrointestinal bleed): Status: Acute Plan Based on her admission H/H of 10.9, has not had any significant drop in her counts. Suspect Hb from yest was spuriously high due to dehydration and hemoconcentration. Ddx include esophagitis vs small barbara fatima tear in the setting of recurrent vomiting. Recommendations: - Can start liquids if tolerated by pt - Cont protonix IV for now - switch to PO liquid once pt able to take orally - Antiemetics PRN to prevent further vomiting - Monitor CBC daily - EGD not indicated at this point as likely to be of low yield however can be reviewed if pt has recurrence of clinically significant hematemesis Thank you for the consultation. Please do not hesitate to reach out for any questions or concerns. Time Spent With Patient Time: Total time managing care of this patient today ____ minutes. Procedures Date of Service Date of Service: 04/10/23
== END 2023-04-09 20:11 | disposition short-term general hospital (02) | DRG 885 ==
PROVIDERS: Psychiatry & Neurology Psychiatry; Admitting Provider Psychiatry & Neurology Psychiatry; Visit Provider Psychiatry & Neurology Psychiatry
DX: F25.0 Schizoaffective disorder, bipolar type (principal); E78.5 Hyperlipidemia, unspecified; E11.9 Type 2 diabetes mellitus without complications; E03.9 Hypothyroidism, unspecified; G31.9 Degenerative disease of nervous system, unspecified; Z20.822 Contact with and (suspected) exposure to COVID-19; Z87.891 Personal history of nicotine dependence; Z79.84 Long term (current) use of oral hypoglycemic drugs; Z79.890 Hormone replacement therapy; Z79.899 Other long term (current) drug therapy
CPT/HCPCS: 36415; 71045; 74018; 80048; 80061; 80076; 80164; 82140; 82271; 82565; 82947; 83036; 84439; 84443; 85025; 87635; 97161

== ENCOUNTER → 2023-03-29 17:47 | Outpatient (BNV) | payer MEDICARE, MEDICAID, SELFPAY | PROVIDERS: Admitting Provider Psychiatry & Neurology Psychiatry; Visit Provider Internal Medicine | DX: R11.10 Vomiting, unspecified (principal); K92.2 Gastrointestinal hemorrhage, unspecified | CPT/HCPCS: 99222 ==

== ENCOUNTER 2023-04-09 19:03 | Inpatient (IN) | payer MEDICARE, MEDICAID, SELFPAY ==
--- NOTE | 2023-04-09 19:12 | PM.IMHP ---
History of Present Illness Date of Service: 04/09/23 Attending physician on admission: Gene Yogeshluis antonio Chief Complaint: Hematemesis 78-year-old female with history of hypertension, hyperlipidemia, hypothyroidism, insulin-dependent type 2 diabetes, recurrent UTI, history of Barbara-Chavez tears, neurocognitive impairment, schizoaffective disorder and bipolar disorder being transferred to hospitalist service from Geriatric Psychiatry where she had been admitted for increased agitation for evaluation of hematemesis. Patient was evaluated on geriatric psych earlier today for nausea and vomiting. Per nursing staff, the patient and her roommate at the time had been arguing, yelling back and forth and patient became diaphoretic, very anxious, and vomited a brown emesis though there was no coffee-ground appearance or bright red blood that time. There was concern due to the odor of the vomitus that this may have been feculent, but after further evaluation, does not appear to be the case. Abd exam at that time was benign and KUB was negative for obstruction though did show moderate constipation. She had been intermittently tachycardic during the day with increased agitation/anxiety noted by nursing staff. She did have additional episode of brown emesis with blood tinge and gastric occult was positive for blood. She then began coughing and there was concern for aspiration so she was made NPO. Chest x-ray was negative. She was given zofran ODT for the N/V and immediately vomiting dark brown/black emesis with tiny smear pink. H/H had been repeat and was stable though increased from baseline. Vitals stable though mildly tachycardic on admission at 101. No hypotension, hypoxia. No leukocytosis. H/H 12.5/36.9%. Renal function baseline, electrolyte levels normal except for calcium 10.9. POC glucose 229. Negative for COVID-19. Case discussed with Dr. Westbrook with recommendation for admission to med/tele for further evaluation and management of UGIB. Case also discussed with Dr. Watts. Review of Systems Review of Systems: Yes Unobtainable due to mental status [facility] Medical History Hyperlipidemia Hypertension Hypothyroidism Insulin dependent type 2 diabetes mellitus Barbara-Chavez tear Neurodegenerative cognitive impairment Recurrent UTI Schizoaffective disorder, bipolar type Social History Household Members: Caregiver Household Members Other:: has route delivery clerk Housing: Apartment Do you presently have visiting nurse or other home services: Yes (pt has route delivery clerk and goes to adult day programs) Patient Tobacco Use Status: Former Tobacco user Tobacco use type: Cigarette e-Cigarette/Vaping Use: Never Used Advance Directives: No Advance Directives Information Provided: No service: No Sexual orientation: Straight/Heterosexual Meds Allergies Allergy/AdvReac Type Severity Reaction Status Date / Time No Known Allergies Allergy Verified 03/29/23 18:39 Active Medications: Current Medications Acetaminophen (Acetaminophen 325 Mg Tablet) 650 mg PO Q6H PRN PRN Reason: Pain, Mild (Pain Scale 1-3) Docusate Sodium (Docusate Sodium 100 Mg Capsule) 100 mg PO DAILY PRN PRN Reason: Constipation Lactated Ringer's (Lr) 1,000 mls @ 100 mls/hr IVCONT .Q10H [facility] Sodium Chloride (Ns) 500 mls @ 999 mls/hr IV .Q31M [facility] Stop: 04/09/23 19:45 Ondansetron HCl (Ondansetron Hcl 4 Mg/2 Ml Vial) 4 mg IVPUSH Q8H PRN PRN Reason: Nausea and Vomiting Pantoprazole Sodium (Pantoprazole Sodium 40 Mg/10 Ml Vial) 40 mg IVPUSH BID@0630,1630 [facility] Sodium Chloride (0.9 % Sodium Chloride Flush 3 Ml Syringe) 3 ml IVFLUSH QSHIFT [facility] Home Medications Medication Instructions Recorded Confirmed Last Taken Type Lactobacillus acidophilus PO DAILY 03/30/23 Unknown History Miralax 17 g PO DAILY constipation 03/30/23 03/30/23 Unknown History Tums 500 500 mg PO QID PRN Heartburn 03/30/23 03/30/23 Unknown History acetaminophen 500 mg PO Q6-8H PRN Fever Or Pain 03/30/23 03/30/23 Unknown History ascorbic acid (vitamin C) 500 mg PO BID supplement 03/30/23 03/30/23 Unknown History atorvastatin 20 tab PO DAILY 03/30/23 03/30/23 Unknown History cholecalciferol (vitamin D3) 2,000 units PO DAILY 03/30/23 03/30/23 Unknown History clonazepam 1 mg PO BEDTIME 03/30/23 03/30/23 Unknown History clonazepam 1 mg PO DAILY PRN Anxiety 03/30/23 03/30/23 Unknown History divalproex 500 mg PO BEDTIME 03/30/23 03/30/23 Unknown History docusate sodium 100 mg PO BID 03/30/23 03/30/23 Unknown History guaifenesin 200 mg PO Q4-5H PRN Cough 03/30/23 03/30/23 Unknown History levothyroxine 25 mcg PO 03/30/23 Unknown History metformin 850 mg PO DAILY 03/30/23 03/30/23 Unknown History methenamine hippurate 1 tab PO BID UTI 03/30/23 03/30/23 Unknown History terazosin 2 mg PO BEDTIME 03/30/23 03/30/23 Unknown History Physical Exam Vital Signs and Narrative: Vital Signs: Reviewed from prior acct number during [facility] admission BP 122/58 RR 18 HR 101 Pulse oximetry 93% room air Temp 98.5 degrees Constitutional - Awake and Alert, No apparent distress Eyes - PERRLA, EOMI Cardiovascular - Regular rhythm, regular rate, refuses auscultation Respiratory - Normal lung expansion, Normal respiratory effort, No respiratory distress, Refuses auscultation Gastrointestinal - NT / ND; +BS; No rebound or guarding Extremities - no calf tenderness bilaterally, no swelling Skin - Warm/Dry Neurological - Alert & disoriented, aggitated Assessment and Plan (1) UGIB (upper gastrointestinal bleed): Status: Acute Plan 78-year-old female with history of hypertension, hyperlipidemia, hypothyroidism, insulin-dependent type 2 diabetes, recurrent UTI, history of Barbara-Chavez tears, neurocognitive impairment, schizoaffective disorder and bipolar disorder being transferred to hospitalist service from Geriatric Psychiatry where she had been admitted for increased agitation for evaluation and management of UGIB. #Acute UGIB -H/H 12.5/36.9%, likely hemoconcentrated, but stable -?MWT vs esophagitis -Brown/black emesis on [facility] psych with pink tinge, but no large bright red blood or coffee grounds appreciated -Keep NPO for now, Initiate IVF -Ondansetron prn for N/V; scopolamine patch applied -IV PPI -GI consult -Monitor on tele #Acute n/v- etiology unclear -initially thought to be vagal r/t anxiety/aggitation. -KUB negative for obstruction -scopolamine patch, ondansetron p.r.n. -keep NPO for now #?aspiration -pt with cough with white sputum production, reportedly present prior to vomiting, but has persisted -CXR negative, no hypoxia -Failed nursing bedside swallow eval -Keep NPO, pending AUTO CUSTOMIZE PAINTER eval #Acute dehydration -following GI losses and NPO status -IL IV NS bolus, then continue IV LR -Follow reanl function, lytes # ent-[id number] type 2 diabetes -hold metformin -NPO for now, advance to diabetic diet -Humalog on sliding scale -POC glucose # hypothyroidism -continue levothyroxine # HLD -continue statin # schizoaffective disorder/cognitive impairment -continue Depakote, hydroxyzine, trazodone as previously administered on [facility] psych -psychiatry consult -sitter consult DVT prophylaxis- SCPs Full code Pt requires inpt stay at least 2 midnights for management of acute UGIB requiring IV PPI, close monitoring for decompensation, and expert consultation with eventual placement back to geriatric psychiatry. Time Spent With Patient Time: Total time managing care of this patient today ____ minutes. Quality Stroke Does the patient have a stroke diagnosis?: No VTE Prior VTE?: No VTE Risk Level:: Medical - moderate - high VTE Device Contraindication: N/A - Device Ordered VTE Drug Contraindication: Treatment Not Indicated
[2023-04-09] MEDS: Pantoprazole Sodium 40 MG/10 ML VIAL IVPUSH (20:51)
[2023-04-09 21:34] VITALS: BP 148/64; PULSE 98; RESP 16; TEMP 36.3; O2SAT 94
[2023-04-09] MEDS: Insulin Lispro 100 UNIT/ML 3 ML VIAL SUBCUT (22:12)
--- NOTE | 2023-04-09 23:02 | PM.PSYDC ---
DS: Providers Provider Date of Service: 04/09/23 Date of admission: 04/09/23 19:03 Primary care physician: Unknown Physician Consults: 04/09/23 19:02 Consult to Gastroenterology Routine Consulting Provider: Lilian Watts Reason for consultation: UGIB 04/09/23 19:19 Consult for Sitter Routine Reason for consultation: aggitation. Geripsych transer. Consult to Psychiatry Routine Consulting Provider: Psych Covering Reason for consultation: aggitation, schizoaffective d/o, neurocognitive d/o, tx pt DS: Diagnosis Discharge Diagnosis (1) UGIB (upper gastrointestinal bleed): Status: Acute DS: Medications Discharge Medications Home Medications: Home Medications Medication Instructions Recorded Confirmed Lactobacillus acidophilus PO DAILY 03/30/23 Miralax 17 g PO DAILY constipation 03/30/23 03/30/23 Tums 500 500 mg PO QID PRN Heartburn 03/30/23 03/30/23 acetaminophen 500 mg PO Q6-8H PRN Fever Or Pain 03/30/23 03/30/23 ascorbic acid (vitamin C) 500 mg PO BID supplement 03/30/23 03/30/23 atorvastatin 20 tab PO DAILY 03/30/23 03/30/23 cholecalciferol (vitamin D3) 2,000 units PO DAILY 03/30/23 03/30/23 clonazepam 1 mg PO BEDTIME 03/30/23 03/30/23 clonazepam 1 mg PO DAILY PRN Anxiety 03/30/23 03/30/23 divalproex 500 mg PO BEDTIME 03/30/23 03/30/23 docusate sodium 100 mg PO BID 03/30/23 03/30/23 guaifenesin 200 mg PO Q4-5H PRN Cough 03/30/23 03/30/23 levothyroxine 25 mcg PO 03/30/23 metformin 850 mg PO DAILY 03/30/23 03/30/23 methenamine hippurate 1 tab PO BID UTI 03/30/23 03/30/23 terazosin 2 mg PO BEDTIME 03/30/23 03/30/23 Mental Status Exam Mental Status Exam Patient Appearance: Disheveled and Appropriate Patient Orientation: Person Level of Consciousness: Awake and Appropriate Patient Behavior: Guarded and Passive Mood Description: Calm Affect Description: Constricted Patient Cognition Impaired: Yes Ability to Follow Directions: Good Speech Pattern: Garbled, Rambling and Poor Articulation Hallucinations: None Delusions: Paranoid Ideation Thought Process: Distracted and Evasive Thought Content: positive for [place] Judgement: Fair DS: Summary Hospital Course Hospital Course: per 03/30 admission note: The patient is a 78-year-old female, with a long history of schizoaffective disorder bipolar type and other several medical comorbidities transfer from [address] due to agitation.? According to the crisis assessment, the patient was brought to the emergency room from caregivers in the community since she was more agitated irritable nonsensical.? Over the emergency room [facility], she was assessed and a full medical workout was done and she was found that she has a UTI.? CT scan and other blood work came back negative.? The patient was treated medically, reassessed by Psychiatry and since the patient was not at her baseline with agitation and nonsensical behaviors she was transferring to this facility for psychiatric stabilization.? The patient has a guardian, a community PingMD order another documents but at this moment we have not been able to for have available does papers.? I assessed the patient at bed sign and she was naked covered with a blanket, the patient refused to wear any clothes and she was nonsensical, unable to provide information, with mild psychomotor agitation.? The patient was unable to understand webb warning or any other statement.? She was referred by to the medical team to continue medical workout. Past Psychiatric History: According to the chart, the patient carries a diagnosis of schizoaffective disorder bipolar type, she has a guardian, court ordered to receive antipsychotics that she has been in the hospital several times for psychiatric conditions.? At this moment the patient is a poor historian able to provide any history. Medical Evaluation Reviewed: Yes PMFSH Family History: Unable to assess Social History: The patient lives in the community with several caregivers, she is a guardian a court order to receive antipsychotics. Substance History: Unable to assess Trauma History: Unable to assess Precis: The patient is an elderly female with a past history of schizoaffective disorder bipolar type, with the legal guardian a corporate receive antipsychotics in the community referred to the emergency room due to increased agitation and nonsensical behaviors.? When she was in the emergency room of [facility] she was diagnosed with a UTI and treated with antibiotics.? So far her medical workout came back within normal limits but she remains grossly psychotic and disorganized, unable to understand lab warning and at this moment we do not have the guardian paperwork for the court ordered to receive antipsychotics.? Plan 1. Gather collateral information.? 2. Continue with antipsychotics and other medications prescribed admitted for Hospital.? I assume that there full feeling the court order for antipsychotics.? 3. Continue with medical workout.? 4. Reassessment with results.? 5. One-to-one observation for safety 6. Increase Seroquel up to 100 mg po tid on March 30.? Seroquel has been increased on April 03 up to 100 mg p.o. b.i.d. and 200 mg p.o. q.h.s..? On April 06 we increase Seroquel up to 300 mg p.o. q.h.s. 7. PT consult for April 05. 8. Depakote was increased up to a 1000 mg p.o. q.h.s. on April 06 since her Depakote level was low. 04/08:? disorganized, pressured.? continue current mgmt. 04/09:? no change in psych presentation.? large volume of feculent vomitus today; med-consult placed, COVID testing ordered. transferred to medicine for w/u of GI bleed, as described below. per 04/09 medicine admission note: 78-year-old female with history of hypertension, hyperlipidemia, hypothyroidism, insulin-dependent type 2 diabetes, recurrent UTI, history of Barbara-Chavez tears, neurocognitive impairment, schizoaffective disorder and bipolar disorder being transferred to hospitalist service from Geriatric Psychiatry where she had been admitted for increased agitation for evaluation of hematemesis.? Patient was evaluated on geriatric psych earlier today for nausea and vomiting.? Per nursing staff, the patient and her roommate at the time had been arguing, yelling back and forth and patient became diaphoretic, very anxious, and vomited a brown emesis though there was no coffee-ground appearance or bright red blood that time.? There was concern due to the odor of the vomitus that this may have been feculent, but after further evaluation, does not appear to be the case. Abd exam at that time was benign and KUB was negative for obstruction though did show moderate constipation.? She had been intermittently tachycardic during the day with increased agitation/anxiety noted by nursing staff.? She did have additional episode of brown emesis with blood tinge and gastric occult was positive for blood.? She then began coughing and there was concern for aspiration so she was made NPO.? Chest x-ray was negative.? She was given zofran ODT for the N/V and immediately vomiting dark brown/black emesis with tiny smear pink. H/H had been repeat and was stable though increased from baseline. Vitals stable though mildly tachycardic on admission at 101. No hypotension, hypoxia.? No leukocytosis.? H/H 12.5/36.9%.? Renal function baseline, electrolyte levels normal except for calcium 10.9.? POC glucose 229.? Negative for COVID-19. Case discussed with Dr. Westbrook with recommendation for admission to [facility] [place] for further evaluation and management of UGIB. Case also discussed with Dr. Watts. Time Spent with Patient Time attestation: Total time managing care of this patient today ____ minutes. Time spent: Greater than 30 minutes Discharge Plan Discharge Patient Disposition: [facility] Referrals: Physician,Unknown J [Primary Care Provider] - 1 Week Discharge Medications: No Action atorvastatin 20 tab PO DAILY Lactobacillus acidophilus PO DAILY Rx Instructions: 1 tab daily Miralax 17 g PO DAILY Rx Instructions: 17 grams daily Tums 500 500 mg PO QID PRN (Reason: Heartburn) acetaminophen 500 mg PO Q6-8H PRN (Reason: Fever Or Pain) ascorbic acid (vitamin C) 500 mg PO BID cholecalciferol (vitamin D3) 2,000 units PO DAILY clonazepam 1 mg PO BEDTIME clonazepam 1 mg PO DAILY PRN (Reason: Anxiety) divalproex 500 mg PO BEDTIME docusate sodium 100 mg PO BID guaifenesin 200 mg PO Q4-5H PRN (Reason: Cough) levothyroxine tablet 25 mcg PO metformin 850 mg PO DAILY methenamine hippurate 1 tab PO BID Rx Instructions: 1 g po BID terazosin 2 mg PO BEDTIME Stand Alone Forms: Patient Portal Discharge page
[2023-04-10] VITALS (7 sets, daily range): BP systolic 133–159; BP diastolic 64–91; PULSE 81–101; RESP 15–20; TEMP 36.4–37.6; O2SAT 94–97
[2023-04-10] MEDS: Pantoprazole Sodium 40 MG/10 ML VIAL IVPUSH ×2 (05:48→16:48)
--- NOTE | 2023-04-10 08:02 | PHA.MEDREC ---
Pharmacy Consult ? Medication Reconciliation Pharmacy has completed the medication reconciliation. PT WAS TRANSFERRED FROM [facility], USED MED REC FROM THAT TIME. ADDED NEW DOSES OF METFORMIN, DEPAKOTE, AND SEROQUEL TEE
--- NOTE | 2023-04-10 08:55 | MHC.CM.PN ---
DEB spoke with Rachel/Huy @ [phone] and addressed IMM with him (Huy requested that the IMM NOT be mailed to him because he is very familiar with it),IMM placed on the chart. Patient lives in a house with Carmen, her Shared Living Provider through [email or web address]. Rachel has given permission for information regarding Patient to be freely shared with Carmen, anyone from [facility] and DDS. The goal appears for Patient to return to [facility], once medically cleared. DEB has initiated and will follow for dc planning. Rachel was unsure who the PCP is but he did state that Patient is Covid vax'd.
--- NOTE | 2023-04-10 11:12 | HO.PM.IMPN ---
Subjective Subjective Date of Service: 04/10/23 Interval History: no furthe rvomitting Physical Exam Vital Signs: Vital Signs: Last Vital Signs Temp 97.8 F 04/10/23 07:54 Pulse 97 04/10/23 07:54 Resp 18 04/10/23 07:54 BP 143/80 H 04/10/23 07:54 Pulse Ox 95 04/10/23 07:54 O2 Del Method Room Air 04/10/23 07:54 pressured speech, poor insight, lungs clear Objective Data Active Medications Acetaminophen (Acetaminophen 325 Mg Tablet) 650 mg PO Q6H PRN PRN Reason: Pain, Mild (Pain Scale 1-3) Ascorbic Acid (Ascorbic Acid 500 Mg Tablet) 500 mg PO BID [facility] Last Admin: 04/10/23 08:04 Dose: Not Given Documented By: KIKI Non-Admin Reason: NPO Atorvastatin Calcium (Atorvastatin Calcium 20 Mg Tablet) 20 mg PO DAILY [facility] Last Admin: 04/10/23 08:04 Dose: Not Given Documented By: KIKI Non-Admin Reason: NPO Calcium Carbonate (Calcium Carbonate 750 Mg Tab.Chew) 500 mg PO Q6H PRN PRN Reason: Heartburn Clonazepam (Clonazepam 1 Mg Tablet) 1 mg PO DAILY PRN PRN Reason: Anxiety Clonazepam (Clonazepam 1 Mg Tablet) 1 mg PO BEDTIME [facility] Dextrose (Dextrose 50 % 25 Gm/50 Ml Syringe) 25 gm IVPUSH Q15M PRN; Protocol PRN Reason: per Hypoglycemia Standing Ord. Divalproex Sodium (Divalproex Sodium Er 500 Mg Tab.Er.24h) 1,000 mg PO BEDTIME [facility] Last Admin: 04/09/23 20:44 Dose: Not Given Documented By: MICHELLE Non-Admin Reason: NPO Docusate Sodium (Docusate Sodium 100 Mg Capsule) 100 mg PO BID [facility] Last Admin: 04/10/23 08:04 Dose: Not Given Documented By: KIKI Non-Admin Reason: NPO Doxazosin Mesylate (Doxazosin Mesylate 2 Mg Tablet) 2 mg PO BEDTIME [facility]; Protocol Last Admin: 04/09/23 20:45 Dose: Not Given Documented By: MICHELLE Non-Admin Reason: NPO Glucose (Glucose Gel 15 Gm Gel..Gram.) 15 gm PO Q15M PRN; Protocol PRN Reason: per Hypoglycemia Standing Ord. Guaifenesin (Guaifenesin 200 Mg/10 Ml 10 Ml Liquid) 10 ml PO Q6H PRN PRN Reason: Cough Hydroxyzine HCl (Hydroxyzine Hcl 25 Mg Tablet) 25 mg PO Q6H PRN PRN Reason: Anxiety Lactated Ringer's (Lr) 1,000 mls @ 100 mls/hr IVCONT .Q10H [facility] Last Admin: 04/10/23 05:48 Dose: 100 mls/hr Documented By: MICHELLE Insulin Human Lispro (Insulin Lispro 100 Unit/Ml 3 Ml Vial) 0 unit SUBCUT QIDACHS [facility]; Protocol Last Admin: 04/10/23 08:04 Dose: Not Given Documented By: KIKI Non-Admin Reason: No Insulin Coverage Comments: pt NPO Levothyroxine Sodium (Levothyroxine Sodium 25 Mcg Tablet) 25 mcg PO DAILY@0600 [facility] Last Admin: 04/10/23 05:44 Dose: Not Given Documented By: MICHELLE Non-Admin Reason: NPO Ondansetron HCl (Ondansetron Hcl 4 Mg/2 Ml Vial) 4 mg IVPUSH Q8H PRN PRN Reason: Nausea and Vomiting Pantoprazole Sodium (Pantoprazole Sodium 40 Mg/10 Ml Vial) 40 mg IVPUSH BID@0630,1630 [facility] Last Admin: 04/10/23 05:48 Dose: 40 mg Documented By: MICHELLE Pharmacy Consult (Consult Rx Perform Med Rec) 1 each MISCELLANE ONCE PRN PRN Reason: Consult order Polyethylene Glycol (Polyethylene Glycol 3350 17 Gm Powd.Pack) 17 gm PO DAILY [facility] Last Admin: 04/10/23 08:05 Dose: Not Given Documented By: KIKI Non-Admin Reason: NPO Quetiapine Fumarate (Quetiapine Fumarate 300 Mg Tablet) 300 mg PO BEDTIME [facility] Scopolamine (Scopolamine 1.5 Mg Patch.Td.3) 1.5 mg EAR-BEHIND Q72H [facility] Sodium Chloride (0.9 % Sodium Chloride Flush 3 Ml Syringe) 3 ml IVFLUSH QSHIFT [facility] Last Admin: 04/10/23 08:04 Dose: Not Given Documented By: KIKI Non-Admin Reason: IV Running Trazodone HCl (Trazodone Hcl 50 Mg Tablet) 50 mg PO BEDTIME MRX1 PRN PRN Reason: Insomnia Labs 04/10/23 05:55 04/10/23 05:55 Labs: Laboratory Results - last 24 hr 04/10/23 04/10/23 04/10/23 05:55 05:55 07:13 MCV 91.1 MCH 29.9 MCHC 32.8 RDW 14.6 Plt Count 260 MPV 11.5 Immature Gran % (Auto) 0.4 Neut % (Auto) 51.3 Lymph % (Auto) 34.3 [place] % (Auto) 13.5 H Eos % (Auto) 0.4 Baso % (Auto) 0.1 Lymph # (Auto) 2.6 [place] # (Auto) 1.0 Eos # (Auto) 0.0 Baso # (Auto) 0.0 Abs Immat Gran (auto) 0.03 Absolute Neuts (auto) 3.8 Absolute Nucleated RBC 0.000 Nucleated RBC % (auto) 0.0 Anion Gap 13 Estim Creat Clear Calc TNP Estimated GFR > 60 POC Glucose 167 H Random Glucose 163 H Calcium 10.0 D Magnesium 1.4 L* Assessment and Plan (1) UGIB (upper gastrointestinal bleed): Status: Acute Plan 78F PMH hypertension, hyperlipidemia, hypothyroidism, insulin-dependent type 2 diabetes, recurrent UTI, history of Barbara-Chavez tears, neurocognitive impairment, schizoaffective disorder and bipolar disorder being transferred to hospitalist service from [facility] where she had been admitted for increased agitation for evaluation and management of coffee ground emesis Acute UGIB ?MWT vs esophagitis ivf, ppi, monitor cbc IV PPI GI consult diabetes hold metformin insulin hypothyroidism levothyroxine HLD statin schizoaffective disorder/cognitive impairment continue Depakote, hydroxyzine, trazodone as previously administered on [facility] psych DVT prophylaxis- SCPs due to hematemsis Full code reason for continued hospitalization:monitoring for bleeding, iv ppi Time Spent With Patient Time: Total time managing care of this patient today ____ minutes. Quality Stroke Does the patient have a stroke diagnosis?: No VTE Prior VTE?: No VTE Risk Level:: Medical - moderate - high VTE Device Contraindication: N/A - Device Ordered VTE Drug Contraindication: Treatment Not Indicated
[2023-04-10] MEDS: Insulin Lispro 100 UNIT/ML 3 ML VIAL SUBCUT (11:46)
--- NOTE | 2023-04-10 12:10 | MHC.SL.SWA ---
Speech Pathologist Impression: Risk of aspiration, pharyngoesophageal dysphagia Risk of Aspiration Due to: Neurological Condition Reduced Cognition Dysphasia Diet Status: No change at this time Liquid Consistency and Strategies for Safe Swallow: Liquid Intake Recommendation: NPO Solid Food Consistency: Dietary Recommendations: NPO Additional Modifications to Solid Foods: Pt gagging, choking, and coughing on PO trials. Pt expectorated food then clear phlegm. RN provided suctioning. Pt w/ pharyngoesophageal dysphagia and is admitted for upper gastrointestinal bleed. Recommend NPO at this time, further workup w/ G.I. Oral Medication Intake: NPO Please contact the pharmacy regarding appropriate crushable or liquid drug formulations that are available whenever modified delivery is recommended. Supervision While Eating and Drinking for Safe Swallow: PO with FLIGHT COMMUNICATIONS OPERATOR Recommendation for Speech: Further Testing Needed Inpatient Speech Therapy Comment: FLIGHT COMMUNICATIONS OPERATOR will continue to follow, re-evaluate when appropriate. Taximeter Repairer Clinican/Clinical Fellow: No Supervisory Statement: I have reviewed and agree with the student/clinical fellow's documentation: N/A Speech Language Pathologist: Rossnaa Pink M.A., [facility]-FLIGHT COMMUNICATIONS OPERATOR
[2023-04-10 20:24] LABS: Glucose, Whole Blood 157 mg/dL (60-115)
--- NOTE | 2023-04-10 22:45 | PC.NURSE ---
1999; Patient DTV, has not voided, patient straight cath last at 1400. @ 2039; Patient bladder scan shows 392 mls, Dr. Turk notified. Staight cath order, patient straight cath for 350 mls at 2114
[2023-04-11 03:22] VITALS: BP 160/80; PULSE 88; RESP 18; TEMP 36.6; O2SAT 96
[2023-04-11] MEDS: Pantoprazole Sodium 40 MG/10 ML VIAL IVPUSH ×2 (05:16→18:13)
[2023-04-11 05:57] LABS: Hematocrit 32.7 % (37.0-47.0); Hemoglobin 10.9 g/dl (12.0-16.0); Mean Corpuscular HGB Conc 33.3 g/dl (31.0-35.0); Mean Corpuscular Hemoglobin 30.3 pg (27.0-33.0); Mean Corpuscular Volume 90.8 fL (80.0-98.0); Mean Platelet Volume 11.2 fL (9.4-12.3); Platelet Count 285 X10*3/uL (160-400); Red Cell Distribution Width 14.3 % (11.0-16.0); White Blood Count 7.8 X10*3/uL (4.8-10.8)
[2023-04-11 06:10] LABS: Anion Gap 15 (12-20); Blood Urea Nitrogen 18 mg/dL (9-16); Calcium 9.7 mg/dL (8.4-10.2); Carbon Dioxide 22 mmol/L (22-29); Chloride 106 mmol/L (96-108); Estimated Glomerular Filt Rate > 60; Glucose Fasting 166 mg/dL (60-99); Potassium 3.4 mmol/L (3.3-5.1); Sodium 140 mmol/L (135-145)
[2023-04-11 08:00] VITALS: BP 142/63; PULSE 87; RESP 20; TEMP 37.3; O2SAT 95
[2023-04-11 08:04] LABS: Glucose, Whole Blood 143 mg/dL (60-115)
[2023-04-11] MEDS: Ascorbic Acid 500 MG TABLET PO ×2 (08:57→21:58)
[2023-04-11] MEDS: Docusate Sodium 100 MG CAPSULE PO ×2 (08:59→21:57)
[2023-04-11] MEDS: Atorvastatin Calcium 20 MG TABLET PO (09:00)
[2023-04-11] MEDS: polyethylene glycoL 3350 17 GM POWD.PACK PO (09:01)
--- NOTE | 2023-04-11 09:05 | HO.PM.IMPN ---
Subjective Subjective Date of Service: 04/11/23 Interval History: no furthe rvomitting Physical Exam Vital Signs: Vital Signs: Last Vital Signs Temp 99.1 F 04/11/23 08:00 Pulse 87 04/11/23 08:00 Resp 20 04/11/23 08:00 BP 142/63 H 04/11/23 08:00 Pulse Ox 95 04/11/23 08:00 O2 Del Method Room Air 04/11/23 08:00 pressured speech, poor insight, lungs clear Objective Data Active Medications Acetaminophen (Acetaminophen 325 Mg Tablet) 650 mg PO Q6H PRN PRN Reason: Pain, Mild (Pain Scale 1-3) Ascorbic Acid (Ascorbic Acid 500 Mg Tablet) 500 mg PO BID [facility] Last Admin: 04/10/23 21:43 Dose: Not Given Documented By: KEVYN Non-Admin Reason: NPO Atorvastatin Calcium (Atorvastatin Calcium 20 Mg Tablet) 20 mg PO DAILY [facility] Last Admin: 04/10/23 08:04 Dose: Not Given Documented By: KIKI Non-Admin Reason: NPO Calcium Carbonate (Calcium Carbonate 750 Mg Tab.Chew) 500 mg PO Q6H PRN PRN Reason: Heartburn Clonazepam (Clonazepam 1 Mg Tablet) 1 mg PO DAILY PRN PRN Reason: Anxiety Clonazepam (Clonazepam 1 Mg Tablet) 1 mg PO BEDTIME [facility] Last Admin: 04/10/23 21:43 Dose: Not Given Documented By: KEVYN Non-Admin Reason: NPO Dextrose (Dextrose 50 % 25 Gm/50 Ml Syringe) 25 gm IVPUSH Q15M PRN; Protocol PRN Reason: per Hypoglycemia Standing Ord. Divalproex Sodium (Divalproex Sodium Er 500 Mg Tab.Er.24h) 1,000 mg PO BEDTIME [facility] Last Admin: 04/10/23 21:43 Dose: Not Given Documented By: KEVYN Non-Admin Reason: NPO Docusate Sodium (Docusate Sodium 100 Mg Capsule) 100 mg PO BID [facility] Last Admin: 04/10/23 21:43 Dose: Not Given Documented By: KEVYN Non-Admin Reason: NPO Doxazosin Mesylate (Doxazosin Mesylate 2 Mg Tablet) 2 mg PO BEDTIME [facility]; Protocol Last Admin: 04/10/23 21:43 Dose: Not Given Documented By: KEVYN Non-Admin Reason: NPO Glucose (Glucose Gel 15 Gm Gel..Gram.) 15 gm PO Q15M PRN; Protocol PRN Reason: per Hypoglycemia Standing Ord. Guaifenesin (Guaifenesin 200 Mg/10 Ml 10 Ml Liquid) 10 ml PO Q6H PRN PRN Reason: Cough Hydroxyzine HCl (Hydroxyzine Hcl 25 Mg Tablet) 25 mg PO Q6H PRN PRN Reason: Anxiety Lactated Ringer's (Lr) 1,000 mls @ 100 mls/hr IVCONT .Q10H [facility] Last Admin: 04/11/23 02:16 Dose: 100 mls/hr Documented By: HIREN Insulin Human Lispro (Insulin Lispro 100 Unit/Ml 3 Ml Vial) 0 unit SUBCUT QIDACHS [facility]; Protocol Last Admin: 04/10/23 21:43 Dose: Not Given Documented By: KEVYN Non-Admin Reason: NPO Comments: patient strict npo Levothyroxine Sodium (Levothyroxine Sodium 25 Mcg Tablet) 25 mcg PO DAILY@0600 [facility] Last Admin: 04/11/23 02:13 Dose: Not Given Documented By: HIREN Non-Admin Reason: NPO Ondansetron HCl (Ondansetron Hcl 4 Mg/2 Ml Vial) 4 mg IVPUSH Q8H PRN PRN Reason: Nausea and Vomiting Pantoprazole Sodium (Pantoprazole Sodium 40 Mg/10 Ml Vial) 40 mg IVPUSH BID@0630,1630 [facility] Last Admin: 04/11/23 05:16 Dose: 40 mg Documented By: HIREN Pharmacy Consult (Consult Rx Perform Med Rec) 1 each MISCELLANE ONCE PRN PRN Reason: Consult order Polyethylene Glycol (Polyethylene Glycol 3350 17 Gm Powd.Pack) 17 gm PO DAILY [facility] Last Admin: 04/10/23 08:05 Dose: Not Given Documented By: KIKI Non-Admin Reason: NPO Quetiapine Fumarate (Quetiapine Fumarate 300 Mg Tablet) 300 mg PO BEDTIME [facility] Last Admin: 04/10/23 21:44 Dose: Not Given Documented By: KEVYN Non-Admin Reason: NPO Scopolamine (Scopolamine 1.5 Mg Patch.Td.3) 1.5 mg EAR-BEHIND Q72H [facility] Sodium Chloride (0.9 % Sodium Chloride Flush 3 Ml Syringe) 3 ml IVFLUSH QSHIFT [facility] Last Admin: 04/10/23 23:40 Dose: Not Given Documented By: HIREN Non-Admin Reason: IV Running Trazodone HCl (Trazodone Hcl 50 Mg Tablet) 50 mg PO BEDTIME MRX1 PRN PRN Reason: Insomnia Labs 04/11/23 05:21 04/11/23 05:21 Labs: Laboratory Results - last 24 hr 04/10/23 04/10/23 04/10/23 11:11 15:56 19:20 MCV MCH MCHC RDW Plt Count MPV Absolute Nucleated RBC Nucleated RBC % (auto) Anion Gap Estim Creat Clear Calc Estimated GFR POC Glucose 212 H 159 H 157 H Fasting Glucose Calcium 04/11/23 04/11/23 04/11/23 05:21 05:21 08:01 MCV 90.8 MCH 30.3 MCHC 33.3 RDW 14.3 Plt Count 285 MPV 11.2 Absolute Nucleated RBC 0.000 Nucleated RBC % (auto) 0.0 Anion Gap 15 Estim Creat Clear Calc TNP Estimated GFR > 60 POC Glucose 143 H Fasting Glucose 166 H Calcium 9.7 Assessment and Plan (1) UGIB (upper gastrointestinal bleed): Status: Acute Plan 78F PMH hypertension, hyperlipidemia, hypothyroidism, insulin-dependent type 2 diabetes, recurrent UTI, history of Barbara-Chavez tears, neurocognitive impairment, schizoaffective disorder and bipolar disorder being transferred to hospitalist service from [facility] where she had been admitted for increased agitation for evaluation and management of coffee ground emesis Acute UGIB ?MWT vs esophagitis ivf, ppi, cbc stable IV PPI resolved dysphagia acid recovery operator recommending npo ivf, monitor diabetes hold metformin insulin hypothyroidism levothyroxine HLD statin schizoaffective disorder/cognitive impairment continue Depakote, hydroxyzine, trazodone as previously administered on [facility] psych DVT prophylaxis- SCPs due to hematemsis Full code reason for continued hospitalization:dysphagia Time Spent With Patient Time: Total time managing care of this patient today ____ minutes. Quality Stroke Does the patient have a stroke diagnosis?: No VTE Prior VTE?: No VTE Risk Level:: Medical - moderate - high VTE Device Contraindication: N/A - Device Ordered VTE Drug Contraindication: Treatment Not Indicated
--- NOTE | 2023-04-11 11:03 | MHC.SL.DTX ---
Dysphagia Diet modifications: Last documented Solid diet consistencies: Grnd/Mech Altered (NDD2) Last documented Liquid consistency: Thin Last documented Medication Administration: Changes made to current diet?: Yes Liquid Consistency and Strategies: Liquid Intake Recommendation: Thin Compensatory Strategies for Safe Swallow: Small Sips Compensatory Strategies for Safe Swallow(b): Sitting Upright (90 deg) Liquids from Straw Small Bites and Sips Alternate Liquids/Solids Rate of Ingestion Change Avoid Specific Foods Solid Food Consistency: Dietary Recommendations: Grnd/Mech Altered (NDD2) Additional Modifications to Solids: Slow pace, upright before and after meals for esophageal clearance. Oral Medication Intake: Crushed with Puree Strategies and Precautions to be Taken for Safe Swallow: Sitting Upright (90 deg) Liquids from Straw Small Bites and Sips Alternate Liquids/Solids Rate of Ingestion Change Avoid Specific Foods Supervision While Eating and/Drinking: Total Assistance (1:1) Foods to Avoid: Spicy, acidic foods Swallowing Recommended Treatments: Compens. Strategy Educat. Recommendation for Speech: Further Testing Needed Inpatient Speech Therapy Additional Comments: Treatment: Assessment: Roll Icer Clinican/Clinical Fellow: No Supervisory Statement: I have reviewed and agree with the student/clinical fellow's documentation: N/A Speech Language Pathologist: Parminder Farr M.A., CCC-VISITING NURSE
--- NOTE | 2023-04-11 11:07 | PC.NURSE ---
insert straight cath due to 692 cc retained , removed 600cc urine 1100 am
[2023-04-11 11:09] LABS: Glucose, Whole Blood 198 mg/dL (60-115)
[2023-04-11 11:57] VITALS: BP 136/80; PULSE 84; RESP 20; TEMP 36.1; O2SAT 95
[2023-04-11] MEDS: Insulin Lispro 100 UNIT/ML 3 ML VIAL SUBCUT ×4 (12:25→22:03)
[2023-04-11 15:19] LABS: Glucose, Whole Blood 200 mg/dL (60-115)
[2023-04-11 15:33] VITALS: BP 165/72; PULSE 72; RESP 20; TEMP 36.7; O2SAT 97
--- NOTE | 2023-04-11 18:51 | PC.NURSE ---
straight cath patient, 500cc removed 550 bladder scanned prior
[2023-04-11 19:13] VITALS: BP 152/72; PULSE 72; RESP 18; TEMP 37.6; O2SAT 98
[2023-04-11 20:26] LABS: Glucose, Whole Blood 176 mg/dL (60-115)
[2023-04-11] MEDS: Divalproex Sodium ER 500 MG TAB.ER.24H 1000 MG PO (21:57)
[2023-04-11] MEDS: clonazePAM 1 MG TABLET PO (21:58)
[2023-04-11] MEDS: Doxazosin Mesylate 2 MG TABLET PO (21:58)
[2023-04-11] MEDS: QUEtiapine Fumarate 300 MG TABLET PO (21:58)
[2023-04-12] VITALS: BP 129/61; PULSE 67; RESP 16; TEMP 36.2; O2SAT 97
[2023-04-12 03:33] VITALS: BP 145/75; PULSE 78; RESP 18; TEMP 36.4; O2SAT 95
[2023-04-12 06:01] LABS: Hematocrit 31.4 % (37.0-47.0); Hemoglobin 10.5 g/dl (12.0-16.0); Mean Corpuscular HGB Conc 33.4 g/dl (31.0-35.0); Mean Corpuscular Hemoglobin 30.1 pg (27.0-33.0); Mean Platelet Volume 10.5 fL (9.4-12.3); Platelet Count 248 X10*3/uL (160-400); Red Blood Count 3.49 X10*6/uL (4.20-5.50); White Blood Count 7.6 X10*3/uL (4.8-10.8)
[2023-04-12 06:15] LABS: Anion Gap 12 (12-20); Blood Urea Nitrogen 13 mg/dL (9-16); Carbon Dioxide 25 mmol/L (22-29); Chloride 105 mmol/L (96-108); Estimated Glomerular Filt Rate > 60; Glucose Fasting 165 mg/dL (60-99); Potassium 3.2 mmol/L (3.3-5.1); Sodium 139 mmol/L (135-145)
[2023-04-12] MEDS: Levothyroxine Sodium 25 MCG TABLET PO (06:22)
[2023-04-12] MEDS: Pantoprazole Sodium 40 MG/10 ML VIAL IVPUSH (06:22)
[2023-04-12 08:00] VITALS: BP 156/83; PULSE 75; RESP 20; TEMP 36.6; O2SAT 97
[2023-04-12 08:05] LABS: Glucose, Whole Blood 206 mg/dL (60-115)
[2023-04-12] MEDS: Atorvastatin Calcium 20 MG TABLET PO (08:55)
[2023-04-12] MEDS: Ascorbic Acid 500 MG TABLET PO ×2 (08:55→20:44)
[2023-04-12] MEDS: polyethylene glycoL 3350 17 GM POWD.PACK PO (08:56)
[2023-04-12] MEDS: Docusate Sodium 100 MG CAPSULE PO (08:56)
[2023-04-12] MEDS: Insulin Lispro 100 UNIT/ML 3 ML VIAL SUBCUT ×4 (08:56→20:43)
--- NOTE | 2023-04-12 10:15 | MHC.CM.PN ---
Per ROUNDS discussion, MD will ask Care Tram to evaluate for possible need to return to [facility]; CM will follow.
[2023-04-12 11:20] VITALS: BP 137/62; PULSE 90; RESP 20; TEMP 36.4; O2SAT 95
[2023-04-12 12:03] LABS: Glucose, Whole Blood 206 mg/dL (60-115)
--- NOTE | 2023-04-12 12:15 | P.PNIM_ITS ---
Subjective Subjective Date of Service: 04/12/23 Interval History: seen and evaluated confused and unable to provide any meaningful history sitter at bedside no reported overnight events Review of Systems Review of Systems: Yes Unobtainable due to mental condition Physical Exam Vital Signs: Vital Signs: Last Vital Signs Temp 97.6 F 04/12/23 11:20 Pulse 90 04/12/23 11:20 Resp 20 04/12/23 11:20 BP 137/62 04/12/23 11:20 Pulse Ox 95 04/12/23 11:20 O2 Del Method Room Air 04/12/23 11:20 Const: Other: Constitutional : Awake, interactive, mildly distressed Neck : Normal inspection, Supple Cardiovascular : RRR, no JVP, no lower extremity edema Respiratory : good bilateral air entry, no crackles, wheezes or rhonchi Gastrointestinal: soft, lax, Normal bowel sounds, Non tender Skin : Warm, Dry Neurological : Alert & unable to assess orientation, moving all extremities and speak unclear sentences Objective Data Active Medications Acetaminophen (Acetaminophen 325 Mg Tablet) 650 mg PO Q6H PRN PRN Reason: Pain, Mild (Pain Scale 1-3) Ascorbic Acid (Ascorbic Acid 500 Mg Tablet) 500 mg PO BID [facility] Last Admin: 04/12/23 08:55 Dose: 500 mg Documented By: ADINA Atorvastatin Calcium (Atorvastatin Calcium 20 Mg Tablet) 20 mg PO DAILY [facility] Last Admin: 04/12/23 08:55 Dose: 20 mg Documented By: ADINA Calcium Carbonate (Calcium Carbonate 750 Mg Tab.Chew) 500 mg PO Q6H PRN PRN Reason: Heartburn Clonazepam (Clonazepam 1 Mg Tablet) 1 mg PO DAILY PRN PRN Reason: Anxiety Clonazepam (Clonazepam 1 Mg Tablet) 1 mg PO BEDTIME [facility] Last Admin: 04/11/23 21:58 Dose: 1 mg Documented By: KENDRA Dextrose (Dextrose 50 % 25 Gm/50 Ml Syringe) 25 gm IVPUSH Q15M PRN; Protocol PRN Reason: per Hypoglycemia Standing Ord. Divalproex Sodium (Divalproex Sodium Er 500 Mg Tab.Er.24h) 1,000 mg PO BEDTIME [facility] Last Admin: 04/11/23 21:57 Dose: 1,000 mg Documented By: KENDRA Docusate Sodium (Docusate Sodium 100 Mg Capsule) 100 mg PO BID [facility] Last Admin: 04/12/23 08:56 Dose: 100 mg Documented By: ADINA Doxazosin Mesylate (Doxazosin Mesylate 2 Mg Tablet) 2 mg PO BEDTIME [facility]; Protocol Last Admin: 04/11/23 21:58 Dose: 2 mg Documented By: KENDRA Glucose (Glucose Gel 15 Gm Gel..Gram.) 15 gm PO Q15M PRN; Protocol PRN Reason: per Hypoglycemia Standing Ord. Guaifenesin (Guaifenesin 200 Mg/10 Ml 10 Ml Liquid) 10 ml PO Q6H PRN PRN Reason: Cough Hydroxyzine HCl (Hydroxyzine Hcl 25 Mg Tablet) 25 mg PO Q6H PRN PRN Reason: Anxiety Insulin Human Lispro (Insulin Lispro 100 Unit/Ml 3 Ml Vial) 0 unit SUBCUT QIDACHS [facility]; Protocol Last Admin: 04/12/23 08:56 Dose: 4 unit Documented By: ADINA Levothyroxine Sodium (Levothyroxine Sodium 25 Mcg Tablet) 25 mcg PO DAILY@0600 [facility] Last Admin: 04/12/23 06:22 Dose: 25 mcg Documented By: KENDRA Omeprazole (Omeprazole 40 Mg Capsule.Dr) 40 mg PO BID@0630,1630 [facility] Ondansetron HCl (Ondansetron Hcl 4 Mg/2 Ml Vial) 4 mg IVPUSH Q8H PRN PRN Reason: Nausea and Vomiting Pharmacy Consult (Consult Rx Perform Med Rec) 1 each MISCELLANE ONCE PRN PRN Reason: Consult order Polyethylene Glycol (Polyethylene Glycol 3350 17 Gm Powd.Pack) 17 gm PO DAILY [facility] Last Admin: 04/12/23 08:56 Dose: 17 gm Documented By: ADINA Quetiapine Fumarate (Quetiapine Fumarate 300 Mg Tablet) 300 mg PO BEDTIME [facility] Last Admin: 04/11/23 21:58 Dose: 300 mg Documented By: KENDRA Scopolamine (Scopolamine 1.5 Mg Patch.Td.3) 1.5 mg EAR-BEHIND Q72H [facility] Sodium Chloride (0.9 % Sodium Chloride Flush 3 Ml Syringe) 3 ml IVFLUSH QSHIFT [facility] Last Admin: 04/12/23 09:04 Dose: 3 ml Documented By: HO.GUILMAT Trazodone HCl (Trazodone Hcl 50 Mg Tablet) 50 mg PO BEDTIME MRX1 PRN PRN Reason: Insomnia Labs 04/12/23 05:43 04/12/23 05:43 Labs: Laboratory Results - last 24 hr 04/11/23 04/11/23 04/12/23 15:15 20:22 05:43 MCV 90.0 MCH 30.1 MCHC 33.4 RDW 14.0 Plt Count 248 MPV 10.5 Absolute Nucleated RBC 0.000 Nucleated RBC % (auto) 0.0 Anion Gap Estim Creat Clear Calc Estimated GFR POC Glucose 200 H 176 H Fasting Glucose Calcium 04/12/23 04/12/23 04/12/23 05:43 08:00 11:17 MCV MCH MCHC RDW Plt Count MPV Absolute Nucleated RBC Nucleated RBC % (auto) Anion Gap 12 Estim Creat Clear Calc TNP Estimated GFR > 60 POC Glucose 206 H 206 H Fasting Glucose 165 H Calcium 9.0 D Assessment and Plan (1) UGIB (upper gastrointestinal bleed): Status: Acute (2) Schizoaffective disorder, bipolar type: Status: Acute Plan 78F PMH hypertension, hyperlipidemia, hypothyroidism, insulin-dependent type 2 diabetes, recurrent UTI, history of Barbara-Chavez tears, neurocognitive impairment, schizoaffective disorder and bipolar disorder being transferred to hospitalist service from [facility] where she had been admitted for increased agitation for evaluation and management of coffee ground emesis Acute UGIB no further episodes, stable H&H likely 2/2 MWT vs esophagitis change ppi to PO dysphagia boat finisher recommending advanced diet monitor diabetes hold metformin insulin hypothyroidism levothyroxine HLD statin schizoaffective disorder/cognitive impairment continue Depakote, hydroxyzine, trazodone as previously administered on [facility] psych care team eval for placement to psych floor DVT prophylaxis- SCPs due to hematemsis Full code reason for continued hospitalization: pending psych clearance Time Spent With Patient Time: Total time managing care of this patient today ____ minutes. Quality Stroke Does the patient have a stroke diagnosis?: No VTE Prior VTE?: No VTE Risk Level:: Medical - moderate - high VTE Device Contraindication: N/A - Device Ordered VTE Drug Contraindication: Treatment Not Indicated
--- NOTE | 2023-04-12 14:45 | MHC.SL.SWA ---
Risk of Aspiration Due to: Neurological Condition Reduced Cognition Dysphasia Diet Status: No change Liquid Consistency and Strategies for Safe Swallow: Liquid Intake Recommendation: Thin Liquid Intake Strategies: Small Sips Solid Food Consistency: Dietary Recommendations: Grnd/Mech Altered (NDD2) Additional Modifications to Solid Foods: Slow pace, upright before and after meals for esophageal clearance. Oral Medication Intake: Crushed with Puree Please contact the pharmacy regarding appropriate crushable or liquid drug formulations that are available whenever modified delivery is recommended. Compensatory Strategies and Precautions to be Taken for Safe Swallow: Sitting Upright (90 deg) Liquids from Straw Small Bites and Sips Alternate Liquids/Solids Rate of Ingestion Change Avoid Specific Foods Supervision While Eating and Drinking for Safe Swallow: Total Assistance (1:1) Foods to Avoid: Spicy, acidic foods Swallowing Recommended Treatments: Compens. Strategy Educat. Recommendation for Speech: Further Testing Needed Inpatient Speech Therapy Pt seen at lunch following diet upgrade on 04/11. Pt did not accept ground solids or thin liquids w/ BIOGEOGRAPHER present. Pt tolerated pureed solids w/ no s/s aspiration. Recommend patient continue w/ Ground/Mech Altered Solids (NDD2) and Thin Liquids. Meds crushed with Puree. Pt requires 1:1 feed. BIOGEOGRAPHER to continue to follow. Interior Mechanic Clinican/Clinical Fellow: No Supervisory Statement: I have reviewed and agree with the student/clinical fellow's documentation: N/A Speech Language Pathologist: Samina Rodriguez M.A., [facility]-BIOGEOGRAPHER
[2023-04-12 15:02] VITALS: BP 176/77; PULSE 84; RESP 20; TEMP 36.2; O2SAT 96
[2023-04-12 15:24] LABS: Glucose, Whole Blood 171 mg/dL (60-115)
[2023-04-12] MEDS: Potassium Chloride Packet 20 MEQ PACKET 40 MEQ PO (16:08)
[2023-04-12] MEDS: amLODIPine Besylate 2.5 MG TABLET PO (16:09)
[2023-04-12] MEDS: hydrOXYzine HCL 25 MG TABLET PO (16:09)
[2023-04-12] MEDS: Omeprazole 40 MG CAPSULE.DR PO (16:09)
[2023-04-12 19:09] VITALS: BP 141/64; PULSE 88; RESP 17; TEMP 36.4; O2SAT 95
[2023-04-12 19:45] LABS: Glucose, Whole Blood 158 mg/dL (60-115)
[2023-04-12] MEDS: clonazePAM 1 MG TABLET PO (20:42)
[2023-04-12] MEDS: QUEtiapine Fumarate 300 MG TABLET PO (20:42)
[2023-04-12] MEDS: Divalproex Sodium ER 500 MG TAB.ER.24H 1000 MG PO (20:42)
[2023-04-12] MEDS: traZODone HCL 50 MG TABLET PO (20:42)
[2023-04-12] MEDS: Doxazosin Mesylate 2 MG TABLET PO (20:43)
[2023-04-12] MEDS: Scopolamine 1.5 MG PATCH.TD.3 EAR-BEHIND (21:39)
[2023-04-13] VITALS (8 sets, daily range): BP systolic 122–150; BP diastolic 50–98; PULSE 68–107; RESP 14–20; TEMP 36.4–37.3; O2SAT 93–96; BMI 26.2
[2023-04-13] MEDS: Haloperidol Lactate 5 MG/ML VIAL IM (00:36)
--- NOTE | 2023-04-13 00:49 | PC.NURSE ---
Unable to assess orientation. Patient combative and had difficulty administering bedtime mediations. Sitter also tried best to help keep a calm environment. Around time for second round of vitals patient attempting to hit INTERNAL MEDICINE NURSE PRACTITIONER and combative with sitter. Dr. Leiva contacted and IM Haloperidol ordered. Med given, pending effect, plan of care continuing
[2023-04-13] MEDS: Levothyroxine Sodium 25 MCG TABLET PO (05:36)
[2023-04-13] MEDS: Omeprazole 40 MG CAPSULE.DR PO ×2 (05:36→17:20)
[2023-04-13] MEDS: hydrOXYzine HCL 25 MG TABLET PO (06:21)
[2023-04-13 07:53] LABS: Glucose, Whole Blood 213 mg/dL (60-115)
[2023-04-13 08:22] LABS: Anion Gap 14 (12-20); Blood Urea Nitrogen 17 mg/dL (9-16); Calcium 9.9 mg/dL (8.4-10.2); Carbon Dioxide 25 mmol/L (22-29); Chloride 107 mmol/L (96-108); Estimated Glomerular Filt Rate > 60; Glucose Random 220 mg/dL (60-115); Potassium 3.4 mmol/L (3.3-5.1); Sodium 143 mmol/L (135-145)
[2023-04-13] MEDS: Insulin Lispro 100 UNIT/ML 3 ML VIAL SUBCUT ×3 (09:32→22:13)
[2023-04-13] MEDS: Atorvastatin Calcium 20 MG TABLET PO (09:33)
[2023-04-13] MEDS: Ascorbic Acid 500 MG TABLET PO ×2 (09:33→22:13)
[2023-04-13] MEDS: amLODIPine Besylate 5 MG TABLET PO (09:33)
[2023-04-13] MEDS: polyethylene glycoL 3350 17 GM POWD.PACK PO (09:33)
[2023-04-13] MEDS: Docusate Sodium 100 MG CAPSULE PO ×2 (09:34→22:13)
--- NOTE | 2023-04-13 10:17 | MHC.CM.PN ---
Per ROUNDS discussion, Patient needs a Care Team Consult for LOC; Patient has a Sitter, has been combative, hitting SYSTEM CONFIGURATION SPECIALIST and required IM Haldol today. [facility] appears likely and CM will continue to follow.
--- NOTE | 2023-04-13 10:23 | MHC.CARE ---
care team assessed patient yesterday, patient challenging to assess. T/w communicated with patient's S1 SW who reported this is patient's baseline/ new baseline per attending Linda. Following group tiger text, it seemed medical floor provider Jason was to speak with Linda re: presentation/ either d/c to her residence or return to inpt LOC
[2023-04-13 11:56] LABS: Glucose, Whole Blood 262 mg/dL (60-115)
--- NOTE | 2023-04-13 11:59 | PM.PSYCN ---
History of Present Illness Date of Service: 04/13/23 Chief Complaint: upper gi bleed Reason for Consult: Medication review for discharge Requesting physician: Davonte Coyle Discussed with referring provider: Yes (text) Sources of Information: patient interviewed, chart reviewed and crisis/core team assessment reviewed Additional Sources of Information: CARE Team Timothy Posada APRN, Director of Behavioral Health Nursing Dr. Sheppard via text Chinedu, pt's primary RN today HPI Narrative: 78 yo female, hx of schizoaffective disorder, bipolar type, admitted to [facility] 03/29/23 with agitation possibly in the context of a resolving UTI. Hx of HTN, HLD, Hypothyroid, IDDM-2, Recurrent UTI, Barbara-Chavez tears. Pt transferred to medicine on 04/09 due to hematemesis. Medically stabilized with some reported agitation requiring prn Haldol last evening. Valproate, Seroquel given consistently for 48 hours along with Klonopin, Trazodone. Valproate Level 22.5 on 04/06/23. History of Seroquel dosing of > 600 mg daily, currently at 300 mg hs. Pt is seen by CARE Team and evaluated as being able to return to the community. It is reported pt has a guardian and had a Jay's Guardianship which . She has community connections with [employer], a group living environment, day program and out patient providers. Past Psychiatric History: According to the chart, the patient carries a diagnosis of schizoaffective disorder bipolar type, she has a guardian, court ordered to receive antipsychotics however Jay's is and that she has been in the hospital several times for psychiatric conditions. At this moment the patient is a poor historian able to provide any history. Medical Evaluation Reviewed: Yes Review of Systems Reports behavioral changes and Reports confusion Psychiatric: Reports behavioral changes and Reports confusion [facility] Medical History Hyperlipidemia Hypertension Hypothyroidism Insulin dependent type 2 diabetes mellitus Barbara-Chavez tear Neurodegenerative cognitive impairment Recurrent UTI Schizoaffective disorder, bipolar type Family History: Unable to assess Social History: The patient lives in the community with several caregivers, she is a guardian a court order to receive antipsychotics. DDS connected Guardian Huy Che Guardianship is Substance History: None known Trauma History: Unable to assess Diagnostics Vital Signs (24Hr): Vital Signs - 24 hr 04/12/23 15:02 04/12/23 19:09 04/13/23 00:00 Temperature 97.1 F 97.6 F 97.8 F Pulse Rate 84 88 107 H Respiratory Rate 20 17 18 Blood Pressure 176/77 H 141/64 H 150/98 H Pulse Oximetry 96 95 95 Oxygen Delivery Method Room Air Room Air Room Air 04/13/23 04:00 04/13/23 07:37 04/13/23 11:14 Temperature 98.3 F 97.5 F 98.4 F Pulse Rate 95 90 86 Respiratory Rate 20 20 20 Blood Pressure 132/59 L 125/58 L 140/65 H Pulse Oximetry 93 95 94 Oxygen Delivery Method Room Air Room Air Room Air Labs 04/12/23 05:43 04/13/23 07:23 Labs: Laboratory Results - last 48 hr 04/11/23 04/11/23 04/12/23 15:15 20:22 05:43 WBC 7.6 RBC 3.49 L Hgb 10.5 L Hct 31.4 L MCV 90.0 MCH 30.1 MCHC 33.4 RDW 14.0 Plt Count 248 MPV 10.5 Absolute Nucleated RBC 0.000 Nucleated RBC % (auto) 0.0 Sodium Potassium Chloride Carbon Dioxide Anion Gap BUN Creatinine Estim Creat Clear Calc Estimated GFR POC Glucose 200 H 176 H Random Glucose Fasting Glucose Calcium 04/12/23 04/12/23 04/12/23 05:43 08:00 11:17 WBC RBC Hgb Hct MCV MCH MCHC RDW Plt Count MPV Absolute Nucleated RBC Nucleated RBC % (auto) Sodium 139 Potassium 3.2 L Chloride 105 Carbon Dioxide 25 Anion Gap 12 BUN 13 Creatinine 0.58 Estim Creat Clear Calc TNP Estimated GFR > 60 POC Glucose 206 H 206 H Random Glucose Fasting Glucose 165 H Calcium 9.0 D 04/12/23 04/12/23 04/13/23 15:19 19:35 07:23 WBC RBC Hgb Hct MCV MCH MCHC RDW Plt Count MPV Absolute Nucleated RBC Nucleated RBC % (auto) Sodium 143 Potassium 3.4 Chloride 107 Carbon Dioxide 25 Anion Gap 14 BUN 17 H Creatinine 0.68 Estim Creat Clear Calc TNP Estimated GFR > 60 POC Glucose 171 H 158 H Random Glucose 220 H Fasting Glucose Calcium 9.9 D 04/13/23 04/13/23 07:36 11:12 WBC RBC Hgb Hct MCV MCH MCHC RDW Plt Count MPV Absolute Nucleated RBC Nucleated RBC % (auto) Sodium Potassium Chloride Carbon Dioxide Anion Gap BUN Creatinine Estim Creat Clear Calc Estimated GFR POC Glucose 213 H 262 H Random Glucose Fasting Glucose Calcium Mental Status Exam Mental Status Exam Narrative: Pt is awake, alert, in bed calm yet mobile, with her one to one. She exhibits a spontaneous smile and reaches out to hug magazine writer and kiss hands. She is confused. Her speech is difficult to understand but she is positively animated. Her team reports she had agitation last evening requiring Haldol prn, however, this a.m. she is accepting of meds, meals, has been cooperative and responsive to support from the team. Patient Appearance: Appropriate Patient Orientation: Person Level of Consciousness: Awake and Alert Patient Behavior: Appropriate, Talkative, Restless, Distractible, Confused and Good Eye Contact Mood Description: Cheerful Affect Description: Appropriate Patient Cognition Impaired: Yes Ability to Follow Directions: Fair Speech Pattern: Spontaneous Speech, Rambling and Poor Articulation (difficult to understand content) Memory Description: Remote Impaired, Episodic Impaired, Recent Impaired, Working Impaired and Semantic Impaired Hallucinations: None Delusions: Not Present Thought Process: Distracted and Confusion Judgement: Poor Medications Medications Current Medications Acetaminophen (Acetaminophen 325 Mg Tablet) 650 mg PO Q6H PRN PRN Reason: Pain, Mild (Pain Scale 1-3) Amlodipine Besylate (Amlodipine Besylate 5 Mg Tablet) 5 mg PO DAILY [facility]; Protocol Last Admin: 04/13/23 09:33 Dose: 5 mg Ascorbic Acid (Ascorbic Acid 500 Mg Tablet) 500 mg PO BID [facility] Last Admin: 04/13/23 09:33 Dose: 500 mg Atorvastatin Calcium (Atorvastatin Calcium 20 Mg Tablet) 20 mg PO DAILY [facility] Last Admin: 04/13/23 09:33 Dose: 20 mg Calcium Carbonate (Calcium Carbonate 750 Mg Tab.Chew) 500 mg PO Q6H PRN PRN Reason: Heartburn Clonazepam (Clonazepam 1 Mg Tablet) 1 mg PO DAILY PRN PRN Reason: Anxiety Clonazepam (Clonazepam 1 Mg Tablet) 1 mg PO BEDTIME [facility] Last Admin: 04/12/23 20:42 Dose: 1 mg Dextrose (Dextrose 50 % 25 Gm/50 Ml Syringe) 25 gm IVPUSH Q15M PRN; Protocol PRN Reason: per Hypoglycemia Standing Ord. Divalproex Sodium (Divalproex Sodium Er 500 Mg Tab.Er.24h) 1,000 mg PO BEDTIME [facility] Last Admin: 04/12/23 20:42 Dose: 1,000 mg Docusate Sodium (Docusate Sodium 100 Mg Capsule) 100 mg PO BID [facility] Last Admin: 04/13/23 09:34 Dose: 100 mg Doxazosin Mesylate (Doxazosin Mesylate 2 Mg Tablet) 2 mg PO BEDTIME [facility]; Protocol Last Admin: 04/12/23 20:43 Dose: 2 mg Glucose (Glucose Gel 15 Gm Gel..Gram.) 15 gm PO Q15M PRN; Protocol PRN Reason: per Hypoglycemia Standing Ord. Guaifenesin (Guaifenesin 200 Mg/10 Ml 10 Ml Liquid) 10 ml PO Q6H PRN PRN Reason: Cough Hydroxyzine HCl (Hydroxyzine Hcl 25 Mg Tablet) 25 mg PO Q6H PRN PRN Reason: Anxiety Last Admin: 04/13/23 06:21 Dose: 25 mg Insulin Human Lispro (Insulin Lispro 100 Unit/Ml 3 Ml Vial) 0 unit SUBCUT QIDACHS [facility]; Protocol Last Admin: 04/13/23 09:32 Dose: 4 unit Levothyroxine Sodium (Levothyroxine Sodium 25 Mcg Tablet) 25 mcg PO DAILY@0600 [facility] Last Admin: 04/13/23 05:36 Dose: 25 mcg Omeprazole (Omeprazole 40 Mg Capsule.Dr) 40 mg PO BID@0630,1630 [facility] Last Admin: 04/13/23 05:36 Dose: 40 mg Ondansetron HCl (Ondansetron Hcl 4 Mg/2 Ml Vial) 4 mg IVPUSH Q8H PRN PRN Reason: Nausea and Vomiting Pharmacy Consult (Consult Rx Perform Med Rec) 1 each MISCELLANE ONCE PRN PRN Reason: Consult order Polyethylene Glycol (Polyethylene Glycol 3350 17 Gm Powd.Pack) 17 gm PO DAILY [facility] Last Admin: 04/13/23 09:33 Dose: 17 gm Quetiapine Fumarate (Quetiapine Fumarate 300 Mg Tablet) 300 mg PO BEDTIME [facility] Last Admin: 04/12/23 20:42 Dose: 300 mg Scopolamine (Scopolamine 1.5 Mg Patch.Td.3) 1.5 mg EAR-BEHIND Q72H [facility] Last Admin: 04/12/23 21:39 Dose: 1.5 mg Sodium Chloride (0.9 % Sodium Chloride Flush 3 Ml Syringe) 3 ml IVFLUSH QSHIFT [facility] Last Admin: 04/13/23 09:34 Dose: 3 ml Trazodone HCl (Trazodone Hcl 50 Mg Tablet) 50 mg PO BEDTIME MRX1 PRN PRN Reason: Insomnia Last Admin: 04/12/23 20:42 Dose: 50 mg Allergies Allergies Allergy/AdvReac Type Severity Reaction Status Date / Time No Known Allergies Allergy Verified 03/29/23 18:39 Assessment & Plan Assessment & Plan (1) Schizoaffective disorder, bipolar type: Status: Acute Code(s): F25.0 - Schizoaffective disorder, bipolar type (2) Neurodegenerative cognitive impairment: Status: Acute Code(s): G31.9 - Degenerative disease of nervous system, unspecified Plan 78 yo female, history of schizoaffective disorder, bipolar type, cognitive impairment, admitted with agitation possibly related to UTI and transferred to medical service for UGIB which is now resolved. Pt has been evaluated by the CARE Team and is deemed appropriate for discharge to her home living environment. One episode of agitation noted last evening with reported Haldol prn. Suggest -Continue Klonopin 1 mg HS. -Discontinue Klonopin prn on discharge -Continue Depakote 1000 mg HS. -Valproate level, CBCD, Ammonia level weekly for four weeks until a consistent level is reached (last level 22.5 on 04/06/23). Out patient team should take this monitoring upon discharge. -Continue Seroquel 300 mg HS. -Seroquel 50 mg bid prn for agitation. (Hx of doses > 600 mg being used) -Continue Trazodone 50 mg HS without repeat prn -Follow up with primary care team and psychiatry team out patient within a week after discharge. Call to patient's guardian, Huy [phone]. Review of admission, current treatment plan and meds. Huy reports pt will need to be ambulatory to return home. Discussed his perception that pt was on too low a dose of Seroquel prior to admission. Review of dosing, prn's and need for prn Haldol today. Discussed follow up with PCP/Urology for a question of adding antibiotic prophylactically and creating a plan of care as pt has chronic UTI which cause behavior issues. Total time managing care of this patient today ____ minutes. Informed Consent: does not understand (under guardianship)
--- NOTE | 2023-04-13 13:53 | MHC.SL.SWA ---
Speech Pathologist Impression: Risk of Aspiration Due to: Neurological Condition Reduced Cognition Dysphasia Diet Status: Recommend downgrade to Puree (NDD1) and continue with Thin Liquids. Meds crushed with Puree. Pt requires 1:1 feed at this time. REGISTERED PHARMACY TECHNICIAN to continue to follow. Liquid Consistency and Strategies for Safe Swallow: Liquid Intake Recommendation: Thin Liquid Intake Strategies: Small Sips Solid Food Consistency: Dietary Recommendations: Pureed (NDD1) Additional Modifications to Solid Foods: Slow pace, upright before and after meals for esophageal clearance. Oral Medication Intake: Crushed with Puree Please contact the pharmacy regarding appropriate crushable or liquid drug formulations that are available whenever modified delivery is recommended. Compensatory Strategies and Precautions to be Taken for Safe Swallow: Sitting Upright (90 deg) Liquids from Straw Small Bites and Sips Alternate Liquids/Solids Rate of Ingestion Change Avoid Specific Foods Supervision While Eating and Drinking for Safe Swallow: Total Assistance (1:1) Foods to Avoid: Spicy, acidic foods Swallowing Recommended Treatments: Compens. Strategy Educat. Recommendation for Speech: Further Testing Needed Inpatient Speech Therapy Comment: Pt seen during lunch. Patient was being fed by INFRASTRUCTURE SOFTWARE ENGINEER, with REGISTERED PHARMACY TECHNICIAN observing. When presented with ground solids, patient spat out food without swallowing, pushed food away. Patient accepted puree consistencies, e.g. some of the mashed potatoes on tray, the thrive pudding. Patient tolerated thin liquids by straw sip with no clinical signs of aspiration. As patient exhibited similar textural aversion to ground consistency yesterday and by report at other meals, recommend DOWNGRADE to Puree (NDD1) continue with thin liquids, pills crushed in puree. REGISTERED PHARMACY TECHNICIAN made adjustment in diet orders, notified MD SARIKA. Frequency/Duration: Date Range for Service Req: Timeline to reassess: Oxidation Engineer Clinican/Clinical Fellow: No Supervisory Statement: I have reviewed and agree with the student/clinical fellow's documentation: N/A Speech Language Pathologist: Rosario Gagnon M.A., [facility]-REGISTERED PHARMACY TECHNICIAN
--- NOTE | 2023-04-13 14:07 | MHC.CM.PN ---
Patient's Shared Living Provider/Carmen's correct # is [phone].
--- NOTE | 2023-04-13 14:18 | HO.PM.IMPN ---
Subjective Subjective Date of Service: 04/13/23 Interval History: seen and evaluated confused and unable to provide any meaningful history sitter at bedside no reported overnight events Review of Systems Review of Systems: Yes Unobtainable due to mental status Physical Exam Vital Signs: Vital Signs: Last Vital Signs Temp 98.4 F 04/13/23 11:14 Pulse 86 04/13/23 11:14 Resp 20 04/13/23 11:14 BP 140/65 H 04/13/23 11:14 Pulse Ox 94 04/13/23 11:14 O2 Del Method Room Air 04/13/23 11:14 Const: Other: Constitutional : Awake, interactive, mildly distressed Neck : Normal inspection, Supple Cardiovascular : RRR, no JVP, no lower extremity edema Respiratory : good bilateral air entry, no crackles, wheezes or rhonchi Gastrointestinal: soft, lax, Normal bowel sounds, Non tender Skin : Warm, Dry Neurological : Alert & unable to assess orientation, moving all extremities and speak unclear sentences Objective Data Active Medications Acetaminophen (Acetaminophen 325 Mg Tablet) 650 mg PO Q6H PRN PRN Reason: Pain, Mild (Pain Scale 1-3) Amlodipine Besylate (Amlodipine Besylate 5 Mg Tablet) 5 mg PO DAILY [facility]; Protocol Last Admin: 04/13/23 09:33 Dose: 5 mg Documented By: ADINA Ascorbic Acid (Ascorbic Acid 500 Mg Tablet) 500 mg PO BID [facility] Last Admin: 04/13/23 09:33 Dose: 500 mg Documented By: ADINA Atorvastatin Calcium (Atorvastatin Calcium 20 Mg Tablet) 20 mg PO DAILY [facility] Last Admin: 04/13/23 09:33 Dose: 20 mg Documented By: ADINA Calcium Carbonate (Calcium Carbonate 750 Mg Tab.Chew) 500 mg PO Q6H PRN PRN Reason: Heartburn Clonazepam (Clonazepam 1 Mg Tablet) 1 mg PO DAILY PRN PRN Reason: Anxiety Clonazepam (Clonazepam 1 Mg Tablet) 1 mg PO BEDTIME [facility] Last Admin: 04/12/23 20:42 Dose: 1 mg Documented By: KENTON Dextrose (Dextrose 50 % 25 Gm/50 Ml Syringe) 25 gm IVPUSH Q15M PRN; Protocol PRN Reason: per Hypoglycemia Standing Ord. Divalproex Sodium (Divalproex Sodium Er 500 Mg Tab.Er.24h) 1,000 mg PO BEDTIME [facility] Last Admin: 04/12/23 20:42 Dose: 1,000 mg Documented By: KENTON Docusate Sodium (Docusate Sodium 100 Mg Capsule) 100 mg PO BID [facility] Last Admin: 04/13/23 09:34 Dose: 100 mg Documented By: ADINA Doxazosin Mesylate (Doxazosin Mesylate 2 Mg Tablet) 2 mg PO BEDTIME [facility]; Protocol Last Admin: 04/12/23 20:43 Dose: 2 mg Documented By: KENTON Glucose (Glucose Gel 15 Gm Gel..Gram.) 15 gm PO Q15M PRN; Protocol PRN Reason: per Hypoglycemia Standing Ord. Guaifenesin (Guaifenesin 200 Mg/10 Ml 10 Ml Liquid) 10 ml PO Q6H PRN PRN Reason: Cough Hydroxyzine HCl (Hydroxyzine Hcl 25 Mg Tablet) 25 mg PO Q6H PRN PRN Reason: Anxiety Last Admin: 04/13/23 06:21 Dose: 25 mg Documented By: NETTA Insulin Human Lispro (Insulin Lispro 100 Unit/Ml 3 Ml Vial) 0 unit SUBCUT QIDACHS [facility]; Protocol Last Admin: 04/13/23 13:23 Dose: 6 unit Documented By: ADINA Levothyroxine Sodium (Levothyroxine Sodium 25 Mcg Tablet) 25 mcg PO DAILY@0600 [facility] Last Admin: 04/13/23 05:36 Dose: 25 mcg Documented By: NETTA Omeprazole (Omeprazole 40 Mg Capsule.) 40 mg PO BID@0630,1630 [facility] Last Admin: 04/13/23 05:36 Dose: 40 mg Documented By: NETTA Ondansetron HCl (Ondansetron Hcl 4 Mg/2 Ml Vial) 4 mg IVPUSH Q8H PRN PRN Reason: Nausea and Vomiting Pharmacy Consult (Consult Rx Perform Med Rec) 1 each MISCELLANE ONCE PRN PRN Reason: Consult order Polyethylene Glycol (Polyethylene Glycol 3350 17 Gm Powd.Pack) 17 gm PO DAILY [facility] Last Admin: 04/13/23 09:33 Dose: 17 gm Documented By: ADINA Quetiapine Fumarate (Quetiapine Fumarate 300 Mg Tablet) 300 mg PO BEDTIME [facility] Last Admin: 04/12/23 20:42 Dose: 300 mg Documented By: KENTON Scopolamine (Scopolamine 1.5 Mg Patch.Td.3) 1.5 mg EAR-BEHIND Q72H [facility] Last Admin: 04/12/23 21:39 Dose: 1.5 mg Documented By: KENTON Sodium Chloride (0.9 % Sodium Chloride Flush 3 Ml Syringe) 3 ml IVFLUSH QSHIFT [facility] Last Admin: 04/13/23 09:34 Dose: 3 ml Documented By: ADINA Trazodone HCl (Trazodone Hcl 50 Mg Tablet) 50 mg PO BEDTIME MRX1 PRN PRN Reason: Insomnia Last Admin: 04/12/23 20:42 Dose: 50 mg Documented By: KENTON Labs 04/12/23 05:43 04/13/23 07:23 Labs: Laboratory Results - last 24 hr 04/12/23 04/12/23 04/13/23 15:19 19:35 07:23 Anion Gap 14 Estim Creat Clear Calc TNP Estimated GFR > 60 POC Glucose 171 H 158 H Random Glucose 220 H Calcium 9.9 D 04/13/23 04/13/23 07:36 11:12 Anion Gap Estim Creat Clear Calc Estimated GFR POC Glucose 213 H 262 H Random Glucose Calcium Assessment and Plan (1) Schizoaffective disorder, bipolar type: Status: Acute (2) Neurodegenerative cognitive impairment: Status: Acute Plan 78F PMH hypertension, hyperlipidemia, hypothyroidism, insulin-dependent type 2 diabetes, recurrent UTI, history of Barbara-Chavez tears, neurocognitive impairment, schizoaffective disorder and bipolar disorder being transferred to hospitalist service from Geriatric Psychiatry where she had been admitted for increased agitation for evaluation and management of coffee ground emesis schizoaffective disorder/cognitive impairment continue Depakote, hydroxyzine, trazodone per new psych recommendations care team feels patient at baseline and can be discharged home w resumed outpatient care Haldol IM needed overnight for combative behaviour To do PT eval for safety at home Monitor status with current psych rec Hematemesis no further episodes, stable H&H GI, likely 2/2 MWT vs esophagitis, no need for intervention change ppi to PO dysphagia HOLLOW CORE DOOR FRAME ASSEMBLER recommending advanced diet monitor diabetes hold metformin insulin hypothyroidism levothyroxine HLD statin DVT prophylaxis- SCPs due to hematemsis Full code reason for continued hospitalization: pending psych clearance Time Spent With Patient Time: Total time managing care of this patient today ____ minutes. Quality Stroke Does the patient have a stroke diagnosis?: No VTE Prior VTE?: No VTE Risk Level:: Medical - moderate - high VTE Device Contraindication: N/A - Device Ordered VTE Drug Contraindication: Treatment Not Indicated
--- NOTE | 2023-04-13 14:40 | PC.NURSE ---
straight cathed approx 15cc to send for UA
[2023-04-13 15:50] LABS: Glucose, Whole Blood 106 mg/dL (60-115)
[2023-04-13 18:33] LABS: Appearance Urine Hazy; Color Urine Yellow; Glucose Urine UA 250 mg/dL (Negative); Leukocyte Esterase Urine Negative (Negative); Nitrite Urine Negative (Negative); Specific Gravity - Urine >= 1.030 (1.005-1.025); Urine Blood Negative (Negative); Urine Ketones Negative (Negative); Urine Protein Trace mg/dL (Neg-Trace)
[2023-04-13 19:54] LABS: Glucose, Whole Blood 239 mg/dL (60-115)
[2023-04-13] MEDS: Divalproex Sodium ER 500 MG TAB.ER.24H 1000 MG PO (22:12)
[2023-04-13] MEDS: clonazePAM 1 MG TABLET PO (22:12)
[2023-04-13] MEDS: Doxazosin Mesylate 2 MG TABLET PO (22:12)
[2023-04-13] MEDS: QUEtiapine Fumarate 300 MG TABLET PO (22:13)
[2023-04-14] VITALS (7 sets, daily range): BP systolic 118–154; BP diastolic 58–70; PULSE 71–81; RESP 13–20; TEMP 36.1–37.1; O2SAT 93–95
[2023-04-14] MEDS: Omeprazole 40 MG CAPSULE.DR PO (05:16)
[2023-04-14] MEDS: Levothyroxine Sodium 25 MCG TABLET PO (05:16)
[2023-04-14 07:56] LABS: Glucose, Whole Blood 159 mg/dL (60-115)
[2023-04-14] MEDS: polyethylene glycoL 3350 17 GM POWD.PACK PO (08:05)
[2023-04-14] MEDS: Atorvastatin Calcium 20 MG TABLET PO (08:06)
[2023-04-14] MEDS: Insulin Lispro 100 UNIT/ML 3 ML VIAL SUBCUT ×3 (08:06→22:56)
[2023-04-14] MEDS: Ascorbic Acid 500 MG TABLET PO ×2 (08:06→22:56)
[2023-04-14] MEDS: amLODIPine Besylate 5 MG TABLET PO (08:06)
[2023-04-14 11:45] LABS: Glucose, Whole Blood 229 mg/dL (60-115)
--- NOTE | 2023-04-14 12:30 | P.DS_ITS ---
DS: Providers Provider Date of admission: 04/09/23 19:03 Primary care physician: Unknown Physician Consults: 04/09/23 19:02 Consult to Gastroenterology Routine Consulting Provider: Lilian Watts Reason for consultation: UGIB 04/09/23 19:19 Consult for Sitter Routine Reason for consultation: aggitation. Geripsych transer. Consult to Psychiatry Routine Consulting Provider: Psych Covering Reason for consultation: aggitation, schizoaffective d/o, discharge plan. 04/11/23 12:55 Consult to Crisis Stat Reason for consultation: medically cleared, came from inpatient psych 04/12/23 08:43 Consult to Care Team Routine Comment: Reason for consultation: eval for proper placement, medically clear 04/13/23 08:24 Consult to Psychiatry Routine Consulting Provider: Psych Covering Reason for consultation: psychosis, Need of inpatient psych, discharge plan and medications DS: Diagnosis Discharge Diagnosis (1) Schizoaffective disorder, bipolar type: Status: Acute (2) Neurodegenerative cognitive impairment: Status: Acute (3) UGIB (upper gastrointestinal bleed): Status: Acute DS: Summary Hospital Course Hospital Course: Admission note HPI 78-year-old female with history of hypertension, hyperlipidemia, hypothyroidism, insulin-dependent type 2 diabetes, recurrent UTI, history of Barbara-Chavez tears, neurocognitive impairment, schizoaffective disorder and bipolar disorder being transferred to hospitalist service from Geriatric Psychiatry where she had been admitted for increased agitation for evaluation of hematemesis.? Patient was evaluated on geriatric psych earlier today for nausea and vomiting.? Per nursing staff, the patient and her roommate at the time had been arguing, yelling back and forth and patient became diaphoretic, very anxious, and vomited a brown emesis though there was no coffee-ground appearance or bright red blood that time.? There was concern due to the odor of the vomitus that this may have been feculent, but after further evaluation, does not appear to be the case. Abd exam at that time was benign and KUB was negative for obstruction though did show moderate constipation.? She had been intermittently tachycardic during the day with increased agitation/anxiety noted by nursing staff.? She did have additional episode of brown emesis with blood tinge and gastric occult was positive for blood.? She then began coughing and there was concern for aspiration so she was made NPO.? Chest x-ray was negative.? She was given zofran ODT for the N/V and immediately vomiting dark brown/black emesis with tiny smear pink. H/H had been repeat and was stable though increased from baseline. Vitals stable though mildly tachycardic on admission at 101. No hypotension, hypoxia.? No leukocytosis.? H/H 12.5/36.9%.? Renal function baseline, electrolyte levels normal except for calcium 10.9.? POC glucose 229.? Negative for COVID-19. Case discussed with Dr. Westbrook with recommendation for admission to med/tele for further evaluation and management of UGIB. Case also discussed with Dr. Watts. Hospital course The patient was admitted to the medical floor for evaluation of Hematemesis. no further episodes, stable H&H. Seen by GI, who believed it is likely 2/2 MWT vs esophagitis, with no need for intervention. Started on IV Pantoprazole that was later changed to PO Omeprazole. Evaluated for dysphagia by speech team. GENERAL ADMINISTRATOR recommending advanced diet to pureed\mechanical with thin liquids. She was primarly admitted to the psychiatry [facility] for treatment of worsening schizoaffective disorder/cognitive impairment from medications misdosing. Psych increased the dosages of Depakote, Seroquel, and started trazodone. care team feels patient at baseline and can be discharged home w resumed outpatient care. her mental status improved but she remains sweetly confused and behaving nicely. was unable to follow ques with PT for evaluation and will need 24/7 care at home. Change diet to mechanical Continue Omeprazole for stomach protection Start Amlopidine for high blood pressure Doxazosin for urinary flow and blood pressure Increase Seroquel to 300 mg bedtime and 50 mg as needed twice daily Increase Valproate to 1000 mg daily Trazodone 50 mg as needed for insomnia To follow with outpatient psychiatry team for medications adjustment Time Spent with Patient Time attestation: Total time managing care of this patient today ____ minutes. Physical Exam Vital Signs: Vital Signs: Last Vital Signs Temp 97.0 F 04/14/23 11:28 Pulse 72 04/14/23 11:28 Resp 20 04/14/23 11:28 BP 136/64 04/14/23 11:28 Pulse Ox 95 04/14/23 11:28 O2 Del Method Room Air 04/14/23 11:28 BMI result Body Mass Index 26.2 Const: Other: Constitutional : Awake, interactive, not in distress, sweetly confused Neck : Normal inspection, Supple Cardiovascular : RRR, no JVP, no lower extremity edema Respiratory : good bilateral air entry, no crackles, wheezes or rhonchi Gastrointestinal: soft, lax, Normal bowel sounds, Non tender Skin : Warm, Dry Neurological : Alert & unable to assess orientation, moving all extremities and speak unclear sentences DS: Data Data Completed and Pending Labs on day of discharge: Laboratory Results - last 24 hr 04/13/23 04/13/23 04/13/23 14:40 15:45 16:12 POC Glucose 106 Urine Color Yellow Urine Appearance Hazy Urine pH 6.0 Ur Specific [place] >= 1.030 H Urine Protein Trace Urine Glucose (UA) 250 H Urine Ketones Negative Urine Blood Negative Urine Nitrite Negative Ur Leukocyte Esterase Negative Valproic Acid 42.0 L 04/13/23 04/14/23 04/14/23 19:49 07:29 11:26 POC Glucose 239 H 159 H 229 H Urine Color Urine Appearance Urine pH Ur Specific [place] Urine Protein Urine Glucose (UA) Urine Ketones Urine Blood Urine Nitrite Ur Leukocyte Esterase Valproic Acid Discharge Plan Discharge Anticipated Discharge Date/Time: 04/14/23 12:24 Patient Disposition: er Acute Care Hospital Discharge Diagnosis: Upper GI bleed Schizoaffective disorder Referrals: Physician,Unknown J [Primary Care Provider] - 1 Week Discharge Medications: New trazodone 50 mg Tablet 50 mg PO BEDTIME MRX1 PRN (Reason: Insomnia) Qty: 30 0RF amlodipine 5 mg Tablet 5 mg PO DAILY Qty: 30 0RF Protocol: Hold for SBP< HOLD for SBP < : 90 omeprazole 40 mg Capsule,Delayed Release(Dr/Ec) 40 mg PO BID@0630,1630 Qty: 60 0RF divalproex 500 mg Tablet Extended Release 24 Hr 1,000 mg PO BEDTIME Qty: 60 0RF doxazosin 2 mg Tablet 2 mg PO BEDTIME Qty: 30 0RF Protocol: Hold for SBP< HOLD for SBP < : 90 quetiapine 50 mg Tablet 50 mg PO BID PRN (Reason: Anxiety/Restlessness) Qty: 60 0RF Continued atorvastatin 20 mg PO DAILY Lactobacillus acidophilus 1 cap PO DAILY Rx Instructions: 1 tab daily Miralax 17 g PO DAILY Rx Instructions: 17 grams daily Tums 500 500 mg PO QID PRN (Reason: Heartburn) acetaminophen 500 mg PO Q6-8H PRN (Reason: Fever Or Pain) ascorbic acid (vitamin C) 500 mg PO BID cholecalciferol (vitamin D3) 2,000 units PO DAILY clonazepam 1 mg PO BEDTIME docusate sodium 100 mg PO BID guaifenesin 200 mg PO Q4-5H PRN (Reason: Cough) levothyroxine tablet 25 mcg PO DAILY methenamine hippurate 1 tab PO BID Rx Instructions: 1 g po BID terazosin 2 mg PO BEDTIME quetiapine [Seroquel] 300 mg Tablet 300 mg PO BEDTIME metformin 1,000 mg Tablet 1,000 mg PO BIDWMEAL Discontinued clonazepam 1 mg PO DAILY PRN (Reason: Anxiety) divalproex 1,000 mg PO BEDTIME Diet: NDD2, nectar thick liquid Activity on Discharge: mechanical soft Stand Alone Forms: Patient Portal Discharge page Care Plan Goals: Read below Health Concerns: Read below Plan of Treatment: Read below Assessment: Admitted to the hospital for evaluation of vomiting blood. evaluated by calenderer who recommended medical management with acid human resources project coordinator with no evidence of recurrence of bleeding or drop in hemoglobin level. Evaluated by psychiatry team who confirmed current dosage of medications and recommended outpatient follow up. Change diet to mechanical texture Continue Omeprazole for stomach protection Start Amlopidine for high blood pressure Doxazosin for urinary flow and blood pressure Increase Seroquel to 300 mg bedtime and 50 mg as needed twice daily Increase Valproate to 1000 mg daily Trazodone 50 mg as needed for insomnia To follow with outpatient psychiatry team for medications adjustment
--- NOTE | 2023-04-14 13:35 | MHC.SL.SWA ---
Speech Pathologist Impression: Risk of Aspiration Due to: Neurological Condition Reduced Cognition Dysphasia Diet Status: Recommend continue on Puree (NDD1) with Thin Liquids. Meds crushed with Puree. Pt requires 1:1 feed at this time. BOW MAKER MACHINE TENDER to continue to follow. Liquid Consistency and Strategies for Safe Swallow: Liquid Intake Recommendation: Thin Liquid Intake Strategies: Small Sips Solid Food Consistency: Dietary Recommendations: Pureed (NDD1) Additional Modifications to Solid Foods: Slow pace, upright before and after meals for esophageal clearance. Oral Medication Intake: Crushed with Puree Please contact the pharmacy regarding appropriate crushable or liquid drug formulations that are available whenever modified delivery is recommended. Compensatory Strategies and Precautions to be Taken for Safe Swallow: Sitting Upright (90 deg) Liquids from Straw Small Bites and Sips Alternate Liquids/Solids Rate of Ingestion Change Avoid Specific Foods Supervision While Eating and Drinking for Safe Swallow: Total Assistance (1:1) Foods to Avoid: Spicy, acidic foods Swallowing Recommended Treatments: Compens. Strategy Educat. Recommendation for Speech: Further Testing Needed Inpatient Speech Therapy Comment: Pt seen during lunch. Patient was downgraded yesterday to Puree (NDD1) with thin liquids, as patient was spitting out ground consistency foods. Patient was awake and alert and while periodically irritated and irrational, significantly less agitated that 24 hours ago. Patient initially rejected all food, but requested juice. Juice was put in cup with straw, patient then took reasonable individual sips by straw, swallowing after each sip with no clinical signs of aspiration. Patient then accepted pureed chicken with mashed potatoes and gravy, producing a timely oral phase and swallow on this consistency with no clinical signs of aspiration. Patient requested salt and pepper after initial bite, then proceeded to eat most of this consistency that was provided with tray without incident. Patient requested water and was assisted with drinking a cup of water with straw and the conclusion of the meal. Patient is tolerating Puree (NDD1) and thin liquids by straw, given one to one assistance and encouragement. Recommend continue on these consistencies. Frequency/Duration: Date Range for Service Req: Timeline to reassess: Warm In Clinican/Clinical Fellow: No Supervisory Statement: I have reviewed and agree with the student/clinical fellow's documentation: N/A Speech Language Pathologist: Rosario Gagnon M.A., CCC-BOW MAKER MACHINE TENDER
--- NOTE | 2023-04-14 14:20 | HO.PM.IMPN ---
Subjective Subjective Date of Service: 04/14/23 Interval History: seen and evaluated confused and unable to provide any meaningful history sitter at bedside no reported overnight events Review of Systems Review of Systems: Yes all other systems are reviewed and are negative Physical Exam Vital Signs: Vital Signs: Last Vital Signs Temp 97.0 F 04/14/23 11:28 Pulse 72 04/14/23 11:28 Resp 20 04/14/23 11:28 BP 136/64 04/14/23 11:28 Pulse Ox 95 04/14/23 11:28 O2 Del Method Room Air 04/14/23 11:28 BMI result Body Mass Index 26.2 Const: Other: Constitutional : Awake, interactive, not in distress, sweetly confused Neck : Normal inspection, Supple Cardiovascular : RRR, no JVP, no lower extremity edema Respiratory : good bilateral air entry, no crackles, wheezes or rhonchi Gastrointestinal: soft, lax, Normal bowel sounds, Non tender Skin : Warm, Dry Neurological : Alert & unable to assess orientation, moving all extremities and speak unclear sentences Objective Data Active Medications Acetaminophen (Acetaminophen 325 Mg Tablet) 650 mg PO Q6H PRN PRN Reason: Pain, Mild (Pain Scale 1-3) Amlodipine Besylate (Amlodipine Besylate 5 Mg Tablet) 5 mg PO DAILY [facility]; Protocol Last Admin: 04/14/23 08:06 Dose: 5 mg Documented By: SUNITHA Ascorbic Acid (Ascorbic Acid 500 Mg Tablet) 500 mg PO BID [facility] Last Admin: 04/14/23 08:06 Dose: 500 mg Documented By: SUNITHA Atorvastatin Calcium (Atorvastatin Calcium 20 Mg Tablet) 20 mg PO DAILY [facility] Last Admin: 04/14/23 08:06 Dose: 20 mg Documented By: SUNITHA Calcium Carbonate (Calcium Carbonate 750 Mg Tab.Chew) 500 mg PO Q6H PRN PRN Reason: Heartburn Clonazepam (Clonazepam 1 Mg Tablet) 1 mg PO BEDTIME [facility] Last Admin: 04/13/23 22:12 Dose: 1 mg Documented By: LUISITO Dextrose (Dextrose 50 % 25 Gm/50 Ml Syringe) 25 gm IVPUSH Q15M PRN; Protocol PRN Reason: per Hypoglycemia Standing Ord. Divalproex Sodium (Divalproex Sodium Er 500 Mg Tab.Er.24h) 1,000 mg PO BEDTIME [facility] Last Admin: 04/13/23 22:12 Dose: 1,000 mg Documented By: LUISITO Docusate Sodium (Docusate Sodium 100 Mg Capsule) 100 mg PO BID [facility] Last Admin: 04/14/23 08:03 Dose: Not Given Documented By: SUNITHA Non-Admin Reason: can't crush med Doxazosin Mesylate (Doxazosin Mesylate 2 Mg Tablet) 2 mg PO BEDTIME [facility]; Protocol Last Admin: 04/13/23 22:12 Dose: 2 mg Documented By: LUISITO Glucose (Glucose Gel 15 Gm Gel..Gram.) 15 gm PO Q15M PRN; Protocol PRN Reason: per Hypoglycemia Standing Ord. Guaifenesin (Guaifenesin 200 Mg/10 Ml 10 Ml Liquid) 10 ml PO Q6H PRN PRN Reason: Cough Hydroxyzine HCl (Hydroxyzine Hcl 25 Mg Tablet) 25 mg PO Q6H PRN PRN Reason: Anxiety Last Admin: 04/13/23 06:21 Dose: 25 mg Documented By: NETTA Insulin Human Lispro (Insulin Lispro 100 Unit/Ml 3 Ml Vial) 0 unit SUBCUT QIDACHS [facility]; Protocol Last Admin: 04/14/23 12:10 Dose: 4 unit Documented By: SUNITHA Levothyroxine Sodium (Levothyroxine Sodium 25 Mcg Tablet) 25 mcg PO DAILY@0600 [facility] Last Admin: 04/14/23 05:16 Dose: 25 mcg Documented By: LUISITO Omeprazole (Omeprazole 40 Mg Capsule.Dr) 40 mg PO BID@0630,1630 [facility] Last Admin: 04/14/23 05:16 Dose: 40 mg Documented By: LUISITO Ondansetron HCl (Ondansetron Hcl 4 Mg/2 Ml Vial) 4 mg IVPUSH Q8H PRN PRN Reason: Nausea and Vomiting Pharmacy Consult (Consult Rx Perform Med Rec) 1 each MISCELLANE ONCE PRN PRN Reason: Consult order Polyethylene Glycol (Polyethylene Glycol 3350 17 Gm Powd.Pack) 17 gm PO DAILY [facility] Last Admin: 04/14/23 08:05 Dose: 17 gm Documented By: SUNITHA Quetiapine Fumarate (Quetiapine Fumarate 300 Mg Tablet) 300 mg PO BEDTIME [facility] Last Admin: 04/13/23 22:13 Dose: 300 mg Documented By: LUISITO Quetiapine Fumarate (Quetiapine Fumarate 50 Mg Tablet) 50 mg PO BID PRN PRN Reason: anxiety/restlessness Scopolamine (Scopolamine 1.5 Mg Patch.Td.3) 1.5 mg EAR-BEHIND Q72H [facility] Last Admin: 04/12/23 21:39 Dose: 1.5 mg Documented By: KENTON Sodium Chloride (0.9 % Sodium Chloride Flush 3 Ml Syringe) 3 ml IVFLUSH QSHIFT [facility] Last Admin: 04/14/23 08:07 Dose: 3 ml Documented By: SUNITHA Trazodone HCl (Trazodone Hcl 50 Mg Tablet) 50 mg PO BEDTIME MRX1 PRN PRN Reason: Insomnia Last Admin: 04/12/23 20:42 Dose: 50 mg Documented By: KENTON Labs 04/12/23 05:43 04/13/23 07:23 Labs: Laboratory Results - last 24 hr 04/13/23 04/13/23 04/13/23 14:40 15:45 16:12 POC Glucose 106 Urine Color Yellow Urine Appearance Hazy Urine pH 6.0 Ur Specific [place] >= 1.030 H Urine Protein Trace Urine Glucose (UA) 250 H Urine Ketones Negative Urine Blood Negative Urine Nitrite Negative Ur Leukocyte Esterase Negative Valproic Acid 42.0 L 04/13/23 04/14/23 04/14/23 19:49 07:29 11:26 POC Glucose 239 H 159 H 229 H Urine Color Urine Appearance Urine pH Ur Specific [place] Urine Protein Urine Glucose (UA) Urine Ketones Urine Blood Urine Nitrite Ur Leukocyte Esterase Valproic Acid Assessment and Plan (1) Schizoaffective disorder, bipolar type: Status: Acute (2) Neurodegenerative cognitive impairment: Status: Acute Plan 78F PMH hypertension, hyperlipidemia, hypothyroidism, insulin-dependent type 2 diabetes, recurrent UTI, history of Barbara-Chavez tears, neurocognitive impairment, schizoaffective disorder and bipolar disorder being transferred to hospitalist service from Geriatric Psychiatry where she had been admitted for increased agitation for evaluation and management of coffee ground emesis schizoaffective disorder/cognitive impairment continue Depakote, hydroxyzine, trazodone per psych team recommendations care team feels patient can be discharged home w resumed outpatient care Haldol IM needed overnight for combative behaviour PT eval feels patient not following cues and not candidate for PT will try to ambulate her more with assistance Monitor status with current psych rec Hematemesis no further episodes, stable H&H GI, likely 2/2 MWT vs esophagitis, no need for intervention change ppi to PO dysphagia RELAYS DRAFTSPERSON recommending advanced diet monitor diabetes hold metformin insulin hypothyroidism levothyroxine HLD statin DVT prophylaxis- SCPs due to hematemsis Full code reason for continued hospitalization: pending psych clearance Time Spent With Patient Time: Total time managing care of this patient today ____ minutes. Quality Stroke Does the patient have a stroke diagnosis?: No VTE Prior VTE?: No VTE Risk Level:: Medical - moderate - high VTE Device Contraindication: N/A - Device Ordered VTE Drug Contraindication: Treatment Not Indicated
[2023-04-14 15:50] LABS: Glucose, Whole Blood 149 mg/dL (60-115)
--- NOTE | 2023-04-14 15:54 | MHC.CM.PN ---
Pt medically cleared for D/C today, initial plan was for her to return to her shared living home with senior care assistant Sunitha. This CM spoke with guardian Huy regarding D/C plan and he informed this CM of a virtual meeting today with the pts caretakers from [facility]. The meeting was originally intended to be with the pts psych team prior to her being admitted to [facility], Huy was informed of this, however he still wanted to continue with the meeting. During the meeting concerns for the pts wellbeing were discussed and per her team she is not near her baseline and they would like her to go to [facility] with the goal of returning to her home with Sunitha after. Hospitalist informed and [facility] referrals placed. Huy's preferences are [facility], [facility], 3. [facility]. CM will continue to follow for D/C.
--- NOTE | 2023-04-14 18:43 | PC.NURSE ---
pt ambulated with assist from 2 RNS. patient was unsteady and fearfully yelling the entire time. notified
[2023-04-14 20:12] LABS: Glucose, Whole Blood 288 mg/dL (60-115)
[2023-04-14] MEDS: Docusate Sodium 100 MG CAPSULE PO (22:55)
[2023-04-14] MEDS: Divalproex Sodium ER 500 MG TAB.ER.24H 1000 MG PO (22:55)
[2023-04-14] MEDS: Doxazosin Mesylate 2 MG TABLET PO (22:55)
[2023-04-14] MEDS: QUEtiapine Fumarate 300 MG TABLET PO (22:56)
[2023-04-14] MEDS: clonazePAM 1 MG TABLET PO (22:58)
[2023-04-15 04:00] VITALS: BP 108/56; PULSE 69; RESP 20; TEMP 36.8; O2SAT 96
[2023-04-15] MEDS: Levothyroxine Sodium 25 MCG TABLET PO (05:47)
[2023-04-15] MEDS: Omeprazole 40 MG CAPSULE.DR PO ×2 (05:47→17:21)
[2023-04-15 07:41] VITALS: BP 119/58; PULSE 68; RESP 20; TEMP 36.3; O2SAT 95
[2023-04-15] MEDS: Ascorbic Acid 500 MG TABLET PO ×2 (07:55→21:00)
[2023-04-15] MEDS: Atorvastatin Calcium 20 MG TABLET PO (07:55)
[2023-04-15] MEDS: amLODIPine Besylate 5 MG TABLET PO (07:55)
[2023-04-15] MEDS: polyethylene glycoL 3350 17 GM POWD.PACK PO (07:55)
[2023-04-15] MEDS: Insulin Lispro 100 UNIT/ML 3 ML VIAL SUBCUT ×4 (07:56→21:02)
[2023-04-15 07:59] LABS: Glucose, Whole Blood 173 mg/dL (60-115)
[2023-04-15 09:46] VITALS: BP 119/58; PULSE 68; O2SAT 95
[2023-04-15 11:21] VITALS: BP 141/65; PULSE 65; RESP 20; TEMP 36.7; O2SAT 97
[2023-04-15 11:27] LABS: Glucose, Whole Blood 201 mg/dL (60-115)
--- NOTE | 2023-04-15 12:47 | P.PNIM_ITS ---
Subjective Subjective Date of Service: 04/15/23 Interval History: seen and evaluated confused and unable to provide any meaningful history sweetly confused, no aggressive behaviour overnight no reported overnight events Review of Systems Review of Systems: Yes Unobtainable due to mental status Physical Exam Vital Signs: Vital Signs: Last Vital Signs Temp 98.0 F 04/15/23 11:21 Pulse 65 04/15/23 11:21 Resp 20 04/15/23 11:21 BP 141/65 H 04/15/23 11:21 Pulse Ox 97 04/15/23 11:21 O2 Del Method Room Air 04/15/23 11:21 BMI result Body Mass Index 26.2 Const: Other: Constitutional : Awake, interactive, not in distress, sweetly confused Neck : Normal inspection, Supple Cardiovascular : RRR, no JVP, no lower extremity edema Respiratory : good bilateral air entry, no crackles, wheezes or rhonchi Gastrointestinal: soft, lax, Normal bowel sounds, Non tender Skin : Warm, Dry Neurological : Alert & unable to assess orientation, not able to answer or communicate verbally, moving all extremities and speak unclear sentences Objective Data Active Medications Acetaminophen (Acetaminophen 325 Mg Tablet) 650 mg PO Q6H PRN PRN Reason: Pain, Mild (Pain Scale 1-3) Amlodipine Besylate (Amlodipine Besylate 5 Mg Tablet) 5 mg PO DAILY [facility]; Protocol Last Admin: 04/15/23 07:55 Dose: 5 mg Documented By: BHARAT Ascorbic Acid (Ascorbic Acid 500 Mg Tablet) 500 mg PO BID [facility] Last Admin: 04/15/23 07:55 Dose: 500 mg Documented By: BHARAT Atorvastatin Calcium (Atorvastatin Calcium 20 Mg Tablet) 20 mg PO DAILY [facility] Last Admin: 04/15/23 07:55 Dose: 20 mg Documented By: BHARAT Calcium Carbonate (Calcium Carbonate 750 Mg Tab.Chew) 500 mg PO Q6H PRN PRN Reason: Heartburn Clonazepam (Clonazepam 1 Mg Tablet) 1 mg PO BEDTIME [facility] Last Admin: 04/14/23 22:58 Dose: 1 mg Documented By: LUISITO Dextrose (Dextrose 50 % 25 Gm/50 Ml Syringe) 25 gm IVPUSH Q15M PRN; Protocol PRN Reason: per Hypoglycemia Standing Ord. Divalproex Sodium (Divalproex Sodium Er 500 Mg Tab.Er.24h) 1,000 mg PO BEDTIME [facility] Last Admin: 04/14/23 22:55 Dose: 1,000 mg Documented By: LUISITO Docusate Sodium (Docusate Sodium 100 Mg Capsule) 100 mg PO BID [facility] Last Admin: 04/15/23 07:54 Dose: Not Given Documented By: BHARAT Non-Admin Reason: cant be crushed Doxazosin Mesylate (Doxazosin Mesylate 2 Mg Tablet) 2 mg PO BEDTIME [facility]; Protocol Last Admin: 04/14/23 22:55 Dose: 2 mg Documented By: LUISITO Glucose (Glucose Gel 15 Gm Gel..Gram.) 15 gm PO Q15M PRN; Protocol PRN Reason: per Hypoglycemia Standing Ord. Guaifenesin (Guaifenesin 200 Mg/10 Ml 10 Ml Liquid) 10 ml PO Q6H PRN PRN Reason: Cough Hydroxyzine HCl (Hydroxyzine Hcl 25 Mg Tablet) 25 mg PO Q6H PRN PRN Reason: Anxiety Last Admin: 04/13/23 06:21 Dose: 25 mg Documented By: NETTA Insulin Human Lispro (Insulin Lispro 100 Unit/Ml 3 Ml Vial) 0 unit SUBCUT QIDACHS [facility]; Protocol Last Admin: 04/15/23 12:01 Dose: 4 unit Documented By: BHARAT Levothyroxine Sodium (Levothyroxine Sodium 25 Mcg Tablet) 25 mcg PO DAILY@0600 [facility] Last Admin: 04/15/23 05:47 Dose: 25 mcg Documented By: LUISITO Omeprazole (Omeprazole 40 Mg Capsule.) 40 mg PO BID@0630,1630 [facility] Last Admin: 04/15/23 05:47 Dose: 40 mg Documented By: LUISITO Ondansetron HCl (Ondansetron Hcl 4 Mg/2 Ml Vial) 4 mg IVPUSH Q8H PRN PRN Reason: Nausea and Vomiting Pharmacy Consult (Consult Rx Perform Med Rec) 1 each MISCELLANE ONCE PRN PRN Reason: Consult order Polyethylene Glycol (Polyethylene Glycol 3350 17 Gm Powd.Pack) 17 gm PO DAILY [facility] Last Admin: 04/15/23 07:55 Dose: 17 gm Documented By: BHARAT Quetiapine Fumarate (Quetiapine Fumarate 300 Mg Tablet) 300 mg PO BEDTIME [facility] Last Admin: 04/14/23 22:56 Dose: 300 mg Documented By: LUISITO Quetiapine Fumarate (Quetiapine Fumarate 50 Mg Tablet) 50 mg PO BID PRN PRN Reason: anxiety/restlessness Scopolamine (Scopolamine 1.5 Mg Patch.Td.3) 1.5 mg EAR-BEHIND Q72H [facility] Last Admin: 04/12/23 21:39 Dose: 1.5 mg Documented By: KENTON Sodium Chloride (0.9 % Sodium Chloride Flush 3 Ml Syringe) 3 ml IVFLUSH QSHIFT [facility] Last Admin: 04/15/23 07:56 Dose: 3 ml Documented By: BHARAT Trazodone HCl (Trazodone Hcl 50 Mg Tablet) 50 mg PO BEDTIME MRX1 PRN PRN Reason: Insomnia Last Admin: 04/12/23 20:42 Dose: 50 mg Documented By: KENTON Labs 04/12/23 05:43 04/13/23 07:23 Labs: Laboratory Results - last 24 hr 04/14/23 04/14/23 04/15/23 15:46 20:09 07:45 POC Glucose 149 H 288 H 173 H 04/15/23 11:23 POC Glucose 201 H Assessment and Plan (1) Schizoaffective disorder, bipolar type: Status: Acute (2) Neurodegenerative cognitive impairment: Status: Acute (3) UGIB (upper gastrointestinal bleed): Status: Acute Plan 78F PMH hypertension, hyperlipidemia, hypothyroidism, insulin-dependent type 2 diabetes, recurrent UTI, history of Barbara-Chavez tears, neurocognitive impairment, schizoaffective disorder and bipolar disorder being transferred to hospitalist service from [facility] where she had been admitted for increased agitation for evaluation and management of coffee ground emesis schizoaffective disorder/cognitive impairment continue Depakote, hydroxyzine, trazodone per psych team recommendations care team feels patient can be discharged home w resumed outpatient care Haldol IM needed overnight for combative behaviour PT eval , patient is very unsteady and not following cues try to ambulate her more with assistance Monitor status with current psych rec Hematemesis no further episodes, stable H&H GI, likely 2/2 MWT vs esophagitis, no need for intervention change ppi to PO dysphagia FIRE APPARATUS ENGINEER recommending advanced diet monitor diabetes hold metformin insulin hypothyroidism levothyroxine HLD statin DVT prophylaxis- SCPs due to hematemsis Full code reason for continued hospitalization: pending safe discharge plan Time Spent With Patient Time: Total time managing care of this patient today ____ minutes. Quality Stroke Does the patient have a stroke diagnosis?: No VTE Prior VTE?: No VTE Risk Level:: Medical - moderate - high VTE Device Contraindication: N/A - Device Ordered VTE Drug Contraindication: Treatment Not Indicated
[2023-04-15 15:25] VITALS: BP 130/60; PULSE 66; RESP 20; TEMP 36.8; O2SAT 94
[2023-04-15 16:37] LABS: Glucose, Whole Blood 203 mg/dL (60-115)
[2023-04-15] MEDS: Scopolamine 1.5 MG PATCH.TD.3 EAR-BEHIND (17:54)
[2023-04-15 19:10] VITALS: BP 119/60; PULSE 71; RESP 16; TEMP 36.4; O2SAT 95
[2023-04-15 20:14] LABS: Glucose, Whole Blood 291 mg/dL (60-115)
[2023-04-15] MEDS: Divalproex Sodium ER 500 MG TAB.ER.24H 1000 MG PO (21:00)
[2023-04-15] MEDS: Docusate Sodium 100 MG CAPSULE PO (21:00)
[2023-04-15] MEDS: QUEtiapine Fumarate 300 MG TABLET PO (21:01)
[2023-04-15] MEDS: Doxazosin Mesylate 2 MG TABLET PO (21:01)
[2023-04-16] VITALS: BP 98/53; PULSE 65; RESP 18; TEMP 36; O2SAT 94
[2023-04-16 03:25] VITALS: BP 107/52; PULSE 59; RESP 18; TEMP 36.1; O2SAT 96
[2023-04-16] MEDS: Omeprazole 40 MG CAPSULE.DR PO ×2 (06:00→14:40)
[2023-04-16] MEDS: Levothyroxine Sodium 25 MCG TABLET PO (06:00)
[2023-04-16 07:45] VITALS: BP 119/59; PULSE 60; RESP 20; TEMP 36.4; O2SAT 97
[2023-04-16 08:10] LABS: Glucose, Whole Blood 150 mg/dL (60-115)
[2023-04-16] MEDS: amLODIPine Besylate 5 MG TABLET PO (09:51)
[2023-04-16] MEDS: polyethylene glycoL 3350 17 GM POWD.PACK PO (09:51)
[2023-04-16] MEDS: Atorvastatin Calcium 20 MG TABLET PO (09:51)
[2023-04-16] MEDS: Ascorbic Acid 500 MG TABLET PO ×2 (09:52→21:01)
[2023-04-16] MEDS: Docusate Sodium 100 MG CAPSULE PO ×2 (09:52→21:01)
--- NOTE | 2023-04-16 10:17 | HO.PM.IMPN ---
Subjective Subjective Date of Service: 04/16/23 Interval History: seen and evaluated confused and unable to provide any meaningful history sweetly confused, no aggressive behaviour overnight no reported overnight events Review of Systems Review of Systems: Yes Unobtainable due to mental status Physical Exam Vital Signs: Vital Signs: Last Vital Signs Temp 97.5 F 04/16/23 07:45 Pulse 60 04/16/23 07:45 Resp 20 04/16/23 07:45 BP 119/59 L 04/16/23 07:45 Pulse Ox 97 04/16/23 07:45 O2 Del Method Room Air 04/16/23 07:45 BMI result Body Mass Index 26.2 Const: Other: Constitutional : Awake, interactive, not in distress, sweetly confused Neck : Normal inspection, Supple Cardiovascular : RRR, no JVP, no lower extremity edema Respiratory : good bilateral air entry, no crackles, wheezes or rhonchi Gastrointestinal: soft, lax, Normal bowel sounds, Non tender Skin : Warm, Dry Neurological : Alert & unable to assess orientation, not able to answer or communicate verbally, moving all extremities and speak unclear sentences Objective Data Active Medications Acetaminophen (Acetaminophen 325 Mg Tablet) 650 mg PO Q6H PRN PRN Reason: Pain, Mild (Pain Scale 1-3) Amlodipine Besylate (Amlodipine Besylate 5 Mg Tablet) 5 mg PO DAILY [facility]; Protocol Last Admin: 04/16/23 09:51 Dose: 5 mg Documented By: ADINA Ascorbic Acid (Ascorbic Acid 500 Mg Tablet) 500 mg PO BID [facility] Last Admin: 04/16/23 09:52 Dose: 500 mg Documented By: ADINA Atorvastatin Calcium (Atorvastatin Calcium 20 Mg Tablet) 20 mg PO DAILY [facility] Last Admin: 04/16/23 09:51 Dose: 20 mg Documented By: ADINA Calcium Carbonate (Calcium Carbonate 750 Mg Tab.Chew) 500 mg PO Q6H PRN PRN Reason: Heartburn Dextrose (Dextrose 50 % 25 Gm/50 Ml Syringe) 25 gm IVPUSH Q15M PRN; Protocol PRN Reason: per Hypoglycemia Standing Ord. Divalproex Sodium (Divalproex Sodium Er 500 Mg Tab.Er.24h) 1,000 mg PO BEDTIME [facility] Last Admin: 04/15/23 21:00 Dose: 1,000 mg Documented By: LUISITO Docusate Sodium (Docusate Sodium 100 Mg Capsule) 100 mg PO BID [facility] Last Admin: 04/16/23 09:52 Dose: 100 mg Documented By: ADINA Doxazosin Mesylate (Doxazosin Mesylate 2 Mg Tablet) 2 mg PO BEDTIME [facility]; Protocol Last Admin: 04/15/23 21:01 Dose: 2 mg Documented By: LUISITO Glucose (Glucose Gel 15 Gm Gel..Gram.) 15 gm PO Q15M PRN; Protocol PRN Reason: per Hypoglycemia Standing Ord. Guaifenesin (Guaifenesin 200 Mg/10 Ml 10 Ml Liquid) 10 ml PO Q6H PRN PRN Reason: Cough Hydroxyzine HCl (Hydroxyzine Hcl 25 Mg Tablet) 25 mg PO Q6H PRN PRN Reason: Anxiety Last Admin: 04/13/23 06:21 Dose: 25 mg Documented By: NETTA Insulin Human Lispro (Insulin Lispro 100 Unit/Ml 3 Ml Vial) 0 unit SUBCUT QIDACHS [facility]; Protocol Last Admin: 04/16/23 09:57 Dose: Not Given Documented By: ADINA Non-Admin Reason: No Insulin Coverage Levothyroxine Sodium (Levothyroxine Sodium 25 Mcg Tablet) 25 mcg PO DAILY@0600 [facility] Last Admin: 04/16/23 06:00 Dose: 25 mcg Documented By: LUISITO Omeprazole (Omeprazole 40 Mg Capsule.) 40 mg PO BID@0630,1630 [facility] Last Admin: 04/16/23 06:00 Dose: 40 mg Documented By: LUISITO Ondansetron HCl (Ondansetron Hcl 4 Mg/2 Ml Vial) 4 mg IVPUSH Q8H PRN PRN Reason: Nausea and Vomiting Pharmacy Consult (Consult Rx Perform Med Rec) 1 each MISCELLANE ONCE PRN PRN Reason: Consult order Polyethylene Glycol (Polyethylene Glycol 3350 17 Gm Powd.Pack) 17 gm PO DAILY [facility] Last Admin: 04/16/23 09:51 Dose: 17 gm Documented By: ADINA Quetiapine Fumarate (Quetiapine Fumarate 300 Mg Tablet) 300 mg PO BEDTIME [facility] Last Admin: 04/15/23 21:01 Dose: 300 mg Documented By: LUISITO Quetiapine Fumarate (Quetiapine Fumarate 50 Mg Tablet) 50 mg PO BID PRN PRN Reason: anxiety/restlessness Scopolamine (Scopolamine 1.5 Mg Patch.Td.3) 1.5 mg EAR-BEHIND Q72H [facility] Last Admin: 04/15/23 17:54 Dose: 1.5 mg Documented By: BHARAT Sodium Chloride (0.9 % Sodium Chloride Flush 3 Ml Syringe) 3 ml IVFLUSH QSHIFT [facility] Last Admin: 04/16/23 09:52 Dose: 3 ml Documented By: ADINA Trazodone HCl (Trazodone Hcl 50 Mg Tablet) 50 mg PO BEDTIME MRX1 PRN PRN Reason: Insomnia Last Admin: 04/12/23 20:42 Dose: 50 mg Documented By: KENTON Labs 04/12/23 05:43 04/13/23 07:23 Labs: Laboratory Results - last 24 hr 04/15/23 04/15/23 04/15/23 11:23 16:28 20:00 POC Glucose 201 H 203 H 291 H 04/16/23 07:57 POC Glucose 150 H Assessment and Plan (1) Neurodegenerative cognitive impairment: Status: Acute Plan 78F PMH hypertension, hyperlipidemia, hypothyroidism, insulin-dependent type 2 diabetes, recurrent UTI, history of Barbara-Chavez tears, neurocognitive impairment, schizoaffective disorder and bipolar disorder being transferred to hospitalist service from [facility] where she had been admitted for increased agitation for evaluation and management of coffee ground emesis schizoaffective disorder/cognitive impairment continue Depakote, hydroxyzine, trazodone per psych team recommendations care team feels patient can be discharged home w resumed outpatient care Haldol IM needed overnight for combative behaviour PT eval , patient is very unsteady and not following cues try to ambulate her more with assistance Monitor status with current psych rec Hematemesis no further episodes, stable H&H GI, likely 2/2 MWT vs esophagitis, no need for intervention change ppi to PO dysphagia 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 Quality Stroke Does the patient have a stroke diagnosis?: No VTE Prior VTE?: No VTE Risk Level:: Medical - moderate - high VTE Device Contraindication: N/A - Device Ordered VTE Drug Contraindication: Treatment Not Indicated
[2023-04-16 11:36] VITALS: BP 137/63; PULSE 59; RESP 20; TEMP 36.6; O2SAT 96
[2023-04-16 11:55] LABS: Glucose, Whole Blood 293 mg/dL (60-115)
[2023-04-16] MEDS: Insulin Lispro 100 UNIT/ML 3 ML VIAL SUBCUT ×3 (14:40→22:28)
[2023-04-16 15:19] VITALS: BP 131/63; PULSE 66; RESP 18; TEMP 36.9; O2SAT 97
[2023-04-16 16:31] LABS: Glucose, Whole Blood 234 mg/dL (60-115)
[2023-04-16 19:34] VITALS: BP 121/59; PULSE 65; RESP 20; TEMP 36.6; O2SAT 95
[2023-04-16] MEDS: Divalproex Sodium ER 500 MG TAB.ER.24H 1000 MG PO (21:01)
[2023-04-16] MEDS: QUEtiapine Fumarate 300 MG TABLET PO (21:01)
[2023-04-16] MEDS: Doxazosin Mesylate 2 MG TABLET PO (21:01)
[2023-04-16 22:27] LABS: Glucose, Whole Blood 222 mg/dL (60-115)
[2023-04-17] VITALS: BP 147/68; PULSE 57; RESP 20; TEMP 36.6; O2SAT 96
--- NOTE | 2023-04-17 01:25 | PC.NURSE ---
tele d/cd pt would not keep it on per previous RN. md notified .
[2023-04-17 03:30] VITALS: BP 127/56; PULSE 52; RESP 19; TEMP 36.2; O2SAT 98
[2023-04-17] MEDS: Levothyroxine Sodium 25 MCG TABLET PO (05:31)
[2023-04-17] MEDS: Omeprazole 40 MG CAPSULE.DR PO ×2 (05:31→18:29)
[2023-04-17 07:30] LABS: Glucose, Whole Blood 185 mg/dL (60-115)
[2023-04-17 08:00] VITALS: BP 138/55; PULSE 55; RESP 18; TEMP 36.3
[2023-04-17] MEDS: amLODIPine Besylate 5 MG TABLET PO (09:18)
[2023-04-17] MEDS: Docusate Sodium 100 MG CAPSULE PO ×2 (09:18→22:28)
[2023-04-17] MEDS: Atorvastatin Calcium 20 MG TABLET PO (09:18)
[2023-04-17] MEDS: Ascorbic Acid 500 MG TABLET PO ×2 (09:18→22:27)
[2023-04-17] MEDS: Insulin Lispro 100 UNIT/ML 3 ML VIAL SUBCUT ×4 (09:53→22:29)
[2023-04-17 11:06] LABS: Glucose, Whole Blood 241 mg/dL (60-115)
[2023-04-17 11:31] VITALS: BP 141/61; PULSE 65; RESP 19; TEMP 37.1; O2SAT 97
--- NOTE | 2023-04-17 13:15 | P.PNIM_ITS ---
Subjective Subjective Date of Service: 04/17/23 Interval History: seen and evaluated sweetly confused and unable to provide any meaningful history no aggressive behaviour overnight no reported overnight events Review of Systems Review of Systems: Yes Unobtainable due to mental status Physical Exam Vital Signs: Vital Signs: Last Vital Signs Temp 98.7 F 04/17/23 11:31 Pulse 65 04/17/23 11:31 Resp 19 04/17/23 11:31 BP 141/61 H 04/17/23 11:31 Pulse Ox 97 04/17/23 11:31 O2 Del Method Room Air 04/17/23 11:31 BMI result Body Mass Index 26.2 Const: Other: Constitutional : Awake, interactive, not in distress, sweetly confused Neck : Normal inspection, Supple Cardiovascular : RRR, no JVP, no lower extremity edema Respiratory : good bilateral air entry, no crackles, wheezes or rhonchi Gastrointestinal: soft, lax, Normal bowel sounds, Non tender Skin : Warm, Dry Neurological : Alert & unable to assess orientation, not able to answer or communicate verbally, moving all extremities and speak unclear sentences Objective Data Active Medications Acetaminophen (Acetaminophen 325 Mg Tablet) 650 mg PO Q6H PRN PRN Reason: Pain, Mild (Pain Scale 1-3) Amlodipine Besylate (Amlodipine Besylate 5 Mg Tablet) 5 mg PO DAILY [facility]; Protocol Last Admin: 04/17/23 09:18 Dose: 5 mg Documented By: ADINA Ascorbic Acid (Ascorbic Acid 500 Mg Tablet) 500 mg PO BID [facility] Last Admin: 04/17/23 09:18 Dose: 500 mg Documented By: ADINA Atorvastatin Calcium (Atorvastatin Calcium 20 Mg Tablet) 20 mg PO DAILY [facility] Last Admin: 04/17/23 09:18 Dose: 20 mg Documented By: ADINA Calcium Carbonate (Calcium Carbonate 750 Mg Tab.Chew) 500 mg PO Q6H PRN PRN Reason: Heartburn Dextrose (Dextrose 50 % 25 Gm/50 Ml Syringe) 25 gm IVPUSH Q15M PRN; Protocol PRN Reason: per Hypoglycemia Standing Ord. Divalproex Sodium (Divalproex Sodium Er 500 Mg Tab.Er.24h) 1,000 mg PO BEDTIME [facility] Last Admin: 04/16/23 21:01 Dose: 1,000 mg Documented By: CECIL Docusate Sodium (Docusate Sodium 100 Mg Capsule) 100 mg PO BID [facility] Last Admin: 04/17/23 09:18 Dose: 100 mg Documented By: ADINA Doxazosin Mesylate (Doxazosin Mesylate 2 Mg Tablet) 2 mg PO BEDTIME [facility]; Protocol Last Admin: 04/16/23 21:01 Dose: 2 mg Documented By: CECIL Glucose (Glucose Gel 15 Gm Gel..Gram.) 15 gm PO Q15M PRN; Protocol PRN Reason: per Hypoglycemia Standing Ord. Guaifenesin (Guaifenesin 200 Mg/10 Ml 10 Ml Liquid) 10 ml PO Q6H PRN PRN Reason: Cough Hydroxyzine HCl (Hydroxyzine Hcl 25 Mg Tablet) 25 mg PO Q6H PRN PRN Reason: Anxiety Last Admin: 04/13/23 06:21 Dose: 25 mg Documented By: NETTA Insulin Human Lispro (Insulin Lispro 100 Unit/Ml 3 Ml Vial) 0 unit SUBCUT QIDACHS [facility]; Protocol Last Admin: 04/17/23 12:20 Dose: 4 unit Documented By: ADINA Levothyroxine Sodium (Levothyroxine Sodium 25 Mcg Tablet) 25 mcg PO DAILY@0600 [facility] Last Admin: 04/17/23 05:31 Dose: 25 mcg Documented By: CECIL Omeprazole (Omeprazole 40 Mg Capsule.) 40 mg PO BID@0630,1630 [facility] Last Admin: 04/17/23 05:31 Dose: 40 mg Documented By: CECIL Ondansetron HCl (Ondansetron Hcl 4 Mg/2 Ml Vial) 4 mg IVPUSH Q8H PRN PRN Reason: Nausea and Vomiting Pharmacy Consult (Consult Rx Perform Med Rec) 1 each MISCELLANE ONCE PRN PRN Reason: Consult order Polyethylene Glycol (Polyethylene Glycol 3350 17 Gm Powd.Pack) 17 gm PO DAILY [facility] Last Admin: 04/17/23 11:08 Dose: Not Given Documented By: ADINA Non-Admin Reason: Patient Refused Quetiapine Fumarate (Quetiapine Fumarate 300 Mg Tablet) 300 mg PO BEDTIME [facility] Last Admin: 04/16/23 21:01 Dose: 300 mg Documented By: CECIL Quetiapine Fumarate (Quetiapine Fumarate 50 Mg Tablet) 50 mg PO BID PRN PRN Reason: anxiety/restlessness Scopolamine (Scopolamine 1.5 Mg Patch.Td.3) 1.5 mg EAR-BEHIND Q72H [facility] Last Admin: 04/15/23 17:54 Dose: 1.5 mg Documented By: BHARAT Sodium Chloride (0.9 % Sodium Chloride Flush 3 Ml Syringe) 3 ml IVFLUSH QSHIFT [facility] Last Admin: 04/17/23 09:20 Dose: Not Given Documented By: ADINA Non-Admin Reason: No Access Trazodone HCl (Trazodone Hcl 50 Mg Tablet) 50 mg PO BEDTIME MRX1 PRN PRN Reason: Insomnia Last Admin: 04/12/23 20:42 Dose: 50 mg Documented By: KENTON Labs 04/12/23 05:43 04/13/23 07:23 Labs: Laboratory Results - last 24 hr 04/16/23 04/16/23 04/17/23 16:21 22:23 07:21 POC Glucose 234 H 222 H 185 H 04/17/23 10:56 POC Glucose 241 H Assessment and Plan (1) Schizoaffective disorder, bipolar type: Status: Acute (2) Neurodegenerative cognitive impairment: Status: Acute Plan 78F PMH hypertension, hyperlipidemia, hypothyroidism, insulin-dependent type 2 diabetes, recurrent UTI, history of Barbara-Chavez tears, neurocognitive impairment, schizoaffective disorder and bipolar disorder being transferred to hospitalist service from [facility] where she had been admitted for increased agitation for evaluation and management of coffee ground emesis schizoaffective disorder/cognitive impairment continue Depakote, hydroxyzine, trazodone per psych team recommendations care team feels patient can be discharged home w resumed outpatient care Haldol IM needed overnight for combative behaviour PT eval , patient is very unsteady and not following cues , to repeat PT eval and try to ambulate her more with assistance with GOAL to be able to walk again independently to go back to her shared apartment Monitor status with current psych rec Hematemesis no further episodes, stable H&H GI, likely 2/2 MWT vs esophagitis, no need for intervention change ppi to PO dysphagia FACILITY MANAGER HISTOLOGY recommending advanced diet monitor diabetes hold metformin insulin hypothyroidism levothyroxine HLD statin DVT prophylaxis- SCPs due to hematemsis Full code reason for continued hospitalization: pending safe discharge plan Time Spent With Patient Time: Total time managing care of this patient today ____ minutes. Quality Stroke Does the patient have a stroke diagnosis?: No VTE Prior VTE?: No VTE Risk Level:: Medical - moderate - high VTE Device Contraindication: N/A - Device Ordered VTE Drug Contraindication: Treatment Not Indicated
[2023-04-17 15:47] VITALS: BP 149/65; PULSE 65; RESP 18; TEMP 36.6; O2SAT 95
--- NOTE | 2023-04-17 15:52 | MHC.SL.SWA ---
Speech Pathologist Impression: Risk of Aspiration Due to: Neurological Condition Reduced Cognition Dysphasia Diet Status: Recommend continue on Puree (NDD1) with Thin Liquids. Meds crushed with Puree. Liquid Consistency and Strategies for Safe Swallow: Liquid Intake Recommendation: Thin Liquid Intake Strategies: Small Sips Solid Food Consistency: Dietary Recommendations: Pureed (NDD1) Additional Modifications to Solid Foods: Patient is tolerating diet well, now able to feed mostly independently, although she would continue to benefit from at least intermittent supervision to assure that she can readily access all food on tray (e.g. open/set up all containers, check that patient is progressing without spilling food or drink on self). Oral Medication Intake: Crushed with Puree Please contact the pharmacy regarding appropriate crushable or liquid drug formulations that are available whenever modified delivery is recommended. Compensatory Strategies and Precautions to be Taken for Safe Swallow: Sitting Upright (90 deg) Liquids from Straw Small Bites and Sips Alternate Liquids/Solids Rate of Ingestion Change Avoid Specific Foods Supervision While Eating and Drinking for Safe Swallow: Intermittent Supervision Foods to Avoid: Spicy, acidic foods Swallowing Recommended Treatments: Compens. Strategy Educat. Recommendation for Speech: Further Testing Needed Inpatient Speech Therapy Comment: BIODIESEL DIVISION MANAGER will continue to follow, re-evaluate when appropriate. Frequency/Duration: Date Range for Service Req: Timeline to reassess: Email Production Specialist Clinican/Clinical Fellow: No Supervisory Statement: I have reviewed and agree with the student/clinical fellow's documentation: N/A Speech Language Pathologist: Rosario Gagnon M.A., [facility]-[employer] DIVISION MANAGER
--- NOTE | 2023-04-17 16:15 | MHC.CM.PN ---
EMR reviewed and per MD rounds, pt medically cleared for D/C, pt awaiting safe placement, [facility] following and willing to accept pt, CM working with them on paperwork (level 1, chavez order, etc.) CM will continue to follow.
[2023-04-17 16:56] LABS: Glucose, Whole Blood 243 mg/dL (60-115)
[2023-04-17 18:58] VITALS: BP 141/61; PULSE 66; RESP 14; TEMP 36.4; O2SAT 95
[2023-04-17 20:14] LABS: Glucose, Whole Blood 206 mg/dL (60-115)
[2023-04-17] MEDS: QUEtiapine Fumarate 300 MG TABLET PO (22:27)
[2023-04-17 22:28] LABS: Glucose, Whole Blood 234 mg/dL (60-115)
[2023-04-17] MEDS: Doxazosin Mesylate 2 MG TABLET PO (22:28)
[2023-04-17] MEDS: Divalproex Sodium ER 500 MG TAB.ER.24H 1000 MG PO (22:32)
[2023-04-18] VITALS: BP 133/54; PULSE 62; RESP 18; TEMP 36.4; O2SAT 99
[2023-04-18 04:00] VITALS: BP 127/68; PULSE 72; RESP 18; TEMP 36.3; O2SAT 97
[2023-04-18] MEDS: Omeprazole 40 MG CAPSULE.DR PO ×2 (07:01→17:36)
[2023-04-18] MEDS: Levothyroxine Sodium 25 MCG TABLET PO (07:01)
[2023-04-18 07:38] LABS: Glucose, Whole Blood 180 mg/dL (60-115)
[2023-04-18 07:52] VITALS: BP 147/66; PULSE 73; RESP 20; TEMP 36.6; O2SAT 97
--- NOTE | 2023-04-18 08:58 | PC.NURSE ---
patient demeanor has improved, she can express needs and is cooperative, up to chair daily, ambulates with walker, walked 100 feet with walker in [place] with RETAIL FIELD SUPERVISOR and nurse on 04/17 takes medications whole with water.
[2023-04-18] MEDS: amLODIPine Besylate 5 MG TABLET PO (09:51)
[2023-04-18] MEDS: polyethylene glycoL 3350 17 GM POWD.PACK PO (09:51)
[2023-04-18] MEDS: Atorvastatin Calcium 20 MG TABLET PO (09:51)
[2023-04-18] MEDS: Docusate Sodium 100 MG CAPSULE PO ×2 (09:51→21:06)
[2023-04-18] MEDS: Ascorbic Acid 500 MG TABLET PO ×2 (09:51→21:06)
[2023-04-18] MEDS: Insulin Lispro 100 UNIT/ML 3 ML VIAL SUBCUT ×4 (09:51→21:06)
[2023-04-18 11:33] VITALS: BP 133/64; PULSE 69; RESP 20; TEMP 36.4; O2SAT 96
--- NOTE | 2023-04-18 11:37 | MHC.SPEECHCO ---
Pt upgraded to Chopped/Advanced (NDD3) Solids, maintain Thin Liquids on this date. MANAGER CAR will continue to follow for further upgrade.
--- NOTE | 2023-04-18 11:37 | MHC.CM.PN ---
MDS AND PASRR LEVEL ONE COMPLETED AND SENT TO KATHERYN MACEDO OF [place], PASRR LEVEL ONE FAXED TO [facility] WELL EMAILED TO [facility]LL[facility], CM ATTEMPTED TO CONTACT [facility] AT [phone], NO ANSWER AND MESSAGE LEFT. NOTICE OF INTENT TO ADMIT TO BE COMPLETED HOWEVER KATHERYN MACEDO HAS NOT RESPONDED TO CM MESSAGES OR RETURNED CALL AT TIME OF THIS NOTE.
[2023-04-18 11:46] LABS: Glucose, Whole Blood 258 mg/dL (60-115)
--- NOTE | 2023-04-18 11:53 | P.PNIM_ITS ---
Subjective Subjective Date of Service: 04/18/23 Interval History: no complaints Physical Exam Vital Signs: Vital Signs: Last Vital Signs Temp 97.5 F 04/18/23 11:33 Pulse 69 04/18/23 11:33 Resp 20 04/18/23 11:33 BP 133/64 04/18/23 11:33 Pulse Ox 96 04/18/23 11:33 O2 Del Method Room Air 04/18/23 11:33 BMI result Body Mass Index 26.2 Const: Other: Constitutional : Awake, interactive, not in distress, sweetly confused Neck : Normal inspection, Supple Cardiovascular : RRR, no JVP, no lower extremity edema Respiratory : good bilateral air entry, no crackles, wheezes or rhonchi Gastrointestinal: soft, lax, Normal bowel sounds, Non tender Skin : Warm, Dry Neurological : Alert & unable to assess orientation, not able to answer or communicate verbally, moving all extremities and speak unclear sentences Objective Data Active Medications Acetaminophen (Acetaminophen 325 Mg Tablet) 650 mg PO Q6H PRN PRN Reason: Pain, Mild (Pain Scale 1-3) Amlodipine Besylate (Amlodipine Besylate 5 Mg Tablet) 5 mg PO DAILY [facility]; Protocol Last Admin: 04/18/23 09:51 Dose: 5 mg Documented By: ADINA Ascorbic Acid (Ascorbic Acid 500 Mg Tablet) 500 mg PO BID [facility] Last Admin: 04/18/23 09:51 Dose: 500 mg Documented By: ADINA Atorvastatin Calcium (Atorvastatin Calcium 20 Mg Tablet) 20 mg PO DAILY [facility] Last Admin: 04/18/23 09:51 Dose: 20 mg Documented By: ADINA Calcium Carbonate (Calcium Carbonate 750 Mg Tab.Chew) 500 mg PO Q6H PRN PRN Reason: Heartburn Dextrose (Dextrose 50 % 25 Gm/50 Ml Syringe) 25 gm IVPUSH Q15M PRN; Protocol PRN Reason: per Hypoglycemia Standing Ord. Divalproex Sodium (Divalproex Sodium Er 500 Mg Tab.Er.24h) 1,000 mg PO BEDTIME [facility] Last Admin: 04/17/23 22:32 Dose: 1,000 mg Documented By: YASMANY Comments: patient swallowed whole in applesauce Docusate Sodium (Docusate Sodium 100 Mg Capsule) 100 mg PO BID [facility] Last Admin: 04/18/23 09:51 Dose: 100 mg Documented By: ADINA Doxazosin Mesylate (Doxazosin Mesylate 2 Mg Tablet) 2 mg PO BEDTIME [facility]; Protocol Last Admin: 04/17/23 22:28 Dose: 2 mg Documented By: YASMANY Glucose (Glucose Gel 15 Gm Gel..Gram.) 15 gm PO Q15M PRN; Protocol PRN Reason: per Hypoglycemia Standing Ord. Guaifenesin (Guaifenesin 200 Mg/10 Ml 10 Ml Liquid) 10 ml PO Q6H PRN PRN Reason: Cough Hydroxyzine HCl (Hydroxyzine Hcl 25 Mg Tablet) 25 mg PO Q6H PRN PRN Reason: Anxiety Last Admin: 04/13/23 06:21 Dose: 25 mg Documented By: NETTA Insulin Human Lispro (Insulin Lispro 100 Unit/Ml 3 Ml Vial) 0 unit SUBCUT QIDACHS [facility]; Protocol Last Admin: 04/18/23 09:51 Dose: 2 unit Documented By: ADINA Levothyroxine Sodium (Levothyroxine Sodium 25 Mcg Tablet) 25 mcg PO DAILY@0600 [facility] Last Admin: 04/18/23 07:01 Dose: 25 mcg Documented By: YASMANY Omeprazole (Omeprazole 40 Mg Capsule.Dr) 40 mg PO BID@0630,1630 [facility] Last Admin: 04/18/23 07:01 Dose: 40 mg Documented By: YASMANY Ondansetron HCl (Ondansetron Hcl 4 Mg/2 Ml Vial) 4 mg IVPUSH Q8H PRN PRN Reason: Nausea and Vomiting Pharmacy Consult (Consult Rx Perform Med Rec) 1 each MISCELLANE ONCE PRN PRN Reason: Consult order Polyethylene Glycol (Polyethylene Glycol 3350 17 Gm Powd.Pack) 17 gm PO DAILY [facility] Last Admin: 04/18/23 09:51 Dose: 17 gm Documented By: ADINA Quetiapine Fumarate (Quetiapine Fumarate 300 Mg Tablet) 300 mg PO BEDTIME [facility] Last Admin: 04/17/23 22:27 Dose: 300 mg Documented By: YASMANY Quetiapine Fumarate (Quetiapine Fumarate 50 Mg Tablet) 50 mg PO BID PRN PRN Reason: anxiety/restlessness Scopolamine (Scopolamine 1.5 Mg Patch.Td.3) 1.5 mg EAR-BEHIND Q72H [facility] Last Admin: 04/15/23 17:54 Dose: 1.5 mg Documented By: BHARAT Sodium Chloride (0.9 % Sodium Chloride Flush 3 Ml Syringe) 3 ml IVFLUSH QSHIFT [facility] Last Admin: 04/18/23 01:17 Dose: Not Given Documented By: YASMANY Non-Admin Reason: no iv access Trazodone HCl (Trazodone Hcl 50 Mg Tablet) 50 mg PO BEDTIME MRX1 PRN PRN Reason: Insomnia Last Admin: 04/12/23 20:42 Dose: 50 mg Documented By: KENTON Labs 04/12/23 05:43 04/13/23 07:23 Labs: Laboratory Results - last 24 hr 04/17/23 04/17/23 04/17/23 16:49 20:11 22:24 POC Glucose 243 H 206 H 234 H 04/18/23 04/18/23 07:28 11:35 POC Glucose 180 H 258 H Assessment and Plan (1) Schizoaffective disorder, bipolar type: Status: Acute (2) Neurodegenerative cognitive impairment: Status: Acute Plan 78F PMH hypertension, hyperlipidemia, hypothyroidism, insulin-dependent type 2 diabetes, recurrent UTI, history of Barbara-Chavez tears, neurocognitive impairment, schizoaffective disorder and bipolar disorder being transferred to hospitalist service from [facility] where she had been admitted for increased agitation for evaluation and management of coffee ground emesis schizoaffective disorder/cognitive impairment continue Depakote, hydroxyzine, trazodone per psych team recommendations care team feels patient can be discharged home w resumed outpatient care ambulated well in hallway Monitor status with current psych rec Hematemesis no further episodes, stable H&H GI, likely 2/2 MWT vs esophagitis, no need for intervention change ppi to PO dysphagia NITROCELLULOSE MAKER recommending advanced diet monitor diabetes hold metformin insulin hypothyroidism levothyroxine HLD statin DVT prophylaxis- SCPs due to hematemsis Full code reason for continued hospitalization: pending safe discharge plan Time Spent With Patient Time: Total time managing care of this patient today ____ minutes. Quality Stroke Does the patient have a stroke diagnosis?: No VTE Prior VTE?: No VTE Risk Level:: Medical - moderate - high VTE Device Contraindication: N/A - Device Ordered VTE Drug Contraindication: Treatment Not Indicated
--- NOTE | 2023-04-18 12:47 | MHC.CM.PN ---
cm received call back from Allegra [phone] to discuss pt, Allegra reports there has been no response today over [facility] d/t short staffing, Allegra did have concerns regarding guardianship however cm clarified w/Allegra and [facility] atty's office that pt's guardianship does not and although the med tx plan did it was extended until 05/23/23. DDS Atty Santosh pagan [phone] reports pt has a hearing on 05/23/23 to continue Che/Med tx plan. Johnson Wilson updated via [employer] as Allegra reports she will have someone check referral.
--- NOTE | 2023-04-18 14:20 | MHC.CM.PN ---
CM RECEIVED CALL ABCK FROM BRANDEN AT [facility] WHO REPORTS SHE WAS UNABLE TO OPEN EMAIL, PT INFO AND PLAN GIVEN OVER PHONE AND CM WILL RE-ATTEMPT TO EMAIL [facility], BRANDEN REQUESTS CM REMIND FACILITY TO CONTACT THEM W/IN 48HRS OF ADMISSION AND THAT THEY WILL ALSO REASSESS PT ON DAY 25 FOR CONTINUED STAY.
[2023-04-18 15:23] VITALS: BP 125/65; PULSE 66; RESP 20; TEMP 36.1; O2SAT 95
--- NOTE | 2023-04-18 15:58 | MHC.CM.PN ---
CM ATTEMPTED TO CONTACT PT'S GUARDIAN YOANA PAULSON, NO ANSWER HOWEVER FAX NUMBER ON [employer] AND INTENT TO ADMIT FAXED, YOANA IS EXPECTING IT AND DEB WILL FOLLOW UP IN AM HE IS OUT OF OFFICE TODAY.
[2023-04-18 16:22] LABS: Glucose, Whole Blood 176 mg/dL (60-115)
[2023-04-18] MEDS: Scopolamine 1.5 MG PATCH.TD.3 EAR-BEHIND (17:36)
[2023-04-18 19:04] VITALS: BP 145/69; PULSE 70; RESP 20; TEMP 36.4; O2SAT 97
[2023-04-18 19:56] LABS: Glucose, Whole Blood 253 mg/dL (60-115)
[2023-04-18] MEDS: Divalproex Sodium ER 500 MG TAB.ER.24H 1000 MG PO (21:05)
[2023-04-18] MEDS: Doxazosin Mesylate 2 MG TABLET PO (21:06)
[2023-04-18] MEDS: QUEtiapine Fumarate 300 MG TABLET PO (21:06)
[2023-04-19] VITALS (7 sets, daily range): BP systolic 116–146; BP diastolic 56–70; PULSE 63–70; RESP 16–20; TEMP 36–37.4; O2SAT 96–99
[2023-04-19] MEDS: Omeprazole 40 MG CAPSULE.DR PO ×2 (05:49→17:11)
[2023-04-19] MEDS: Levothyroxine Sodium 25 MCG TABLET PO (05:49)
[2023-04-19 07:16] LABS: Glucose, Whole Blood 176 mg/dL (60-115)
--- NOTE | 2023-04-19 08:24 | MHC.CM.PN ---
CM CONTACTED PT'S GUARDIAN YOANA PAULSON AT 8:18AM AT NUMBER ON FILE, YOANA REPORTS HE RECEIVED NOTICE OF INTENT AND WILL FILL OUT AND SEND BACK TO CM, ONCE RECEIVED CM WILL FORWARD TO CM DIRECTOR.
--- NOTE | 2023-04-19 08:31 | HO.PM.IMPN ---
Subjective Subjective Date of Service: 04/19/23 Interval History: no complaints Physical Exam Vital Signs: Vital Signs: Last Vital Signs Temp 99.3 F 04/19/23 07:46 Pulse 63 04/19/23 07:46 Resp 18 04/19/23 07:46 BP 125/58 L 04/19/23 07:46 Pulse Ox 98 04/19/23 07:46 O2 Del Method Room Air 04/19/23 07:46 BMI result Body Mass Index 26.2 Const: Other: Constitutional : Awake, interactive, not in distress, sweetly confused Neck : Normal inspection, Supple Cardiovascular : RRR, no JVP, no lower extremity edema Respiratory : good bilateral air entry, no crackles, wheezes or rhonchi Gastrointestinal: soft, lax, Normal bowel sounds, Non tender Skin : Warm, Dry Neurological : Alert & unable to assess orientation, not able to answer or communicate verbally, moving all extremities and speak unclear sentences Objective Data Active Medications Acetaminophen (Acetaminophen 325 Mg Tablet) 650 mg PO Q6H PRN PRN Reason: Pain, Mild (Pain Scale 1-3) Amlodipine Besylate (Amlodipine Besylate 5 Mg Tablet) 5 mg PO DAILY [facility]; Protocol Last Admin: 04/18/23 09:51 Dose: 5 mg Documented By: ADINA Ascorbic Acid (Ascorbic Acid 500 Mg Tablet) 500 mg PO BID [facility] Last Admin: 04/18/23 21:06 Dose: 500 mg Documented By: THERESA Atorvastatin Calcium (Atorvastatin Calcium 20 Mg Tablet) 20 mg PO DAILY [facility] Last Admin: 04/18/23 09:51 Dose: 20 mg Documented By: ADINA Calcium Carbonate (Calcium Carbonate 750 Mg Tab.Chew) 500 mg PO Q6H PRN PRN Reason: Heartburn Dextrose (Dextrose 50 % 25 Gm/50 Ml Syringe) 25 gm IVPUSH Q15M PRN; Protocol PRN Reason: per Hypoglycemia Standing Ord. Divalproex Sodium (Divalproex Sodium Er 500 Mg Tab.Er.24h) 1,000 mg PO BEDTIME [facility] Last Admin: 04/18/23 21:05 Dose: 1,000 mg Documented By: THERESA Docusate Sodium (Docusate Sodium 100 Mg Capsule) 100 mg PO BID [facility] Last Admin: 04/18/23 21:06 Dose: 100 mg Documented By: THERESA Doxazosin Mesylate (Doxazosin Mesylate 2 Mg Tablet) 2 mg PO BEDTIME [facility]; Protocol Last Admin: 04/18/23 21:06 Dose: 2 mg Documented By: THERESA Glucose (Glucose Gel 15 Gm Gel..Gram.) 15 gm PO Q15M PRN; Protocol PRN Reason: per Hypoglycemia Standing Ord. Guaifenesin (Guaifenesin 200 Mg/10 Ml 10 Ml Liquid) 10 ml PO Q6H PRN PRN Reason: Cough Hydroxyzine HCl (Hydroxyzine Hcl 25 Mg Tablet) 25 mg PO Q6H PRN PRN Reason: Anxiety Last Admin: 04/13/23 06:21 Dose: 25 mg Documented By: NETTA Insulin Human Lispro (Insulin Lispro 100 Unit/Ml 3 Ml Vial) 0 unit SUBCUT QIDACHS [facility]; Protocol Last Admin: 04/18/23 21:06 Dose: 6 unit Documented By: THERESA Levothyroxine Sodium (Levothyroxine Sodium 25 Mcg Tablet) 25 mcg PO DAILY@0600 [facility] Last Admin: 04/19/23 05:49 Dose: 25 mcg Documented By: THERESA Omeprazole (Omeprazole 40 Mg Capsule.Dr) 40 mg PO BID@0630,1630 [facility] Last Admin: 04/19/23 05:49 Dose: 40 mg Documented By: THERESA Ondansetron HCl (Ondansetron Hcl 4 Mg/2 Ml Vial) 4 mg IVPUSH Q8H PRN PRN Reason: Nausea and Vomiting Pharmacy Consult (Consult Rx Perform Med Rec) 1 each MISCELLANE ONCE PRN PRN Reason: Consult order Polyethylene Glycol (Polyethylene Glycol 3350 17 Gm Powd.Pack) 17 gm PO DAILY [facility] Last Admin: 04/18/23 09:51 Dose: 17 gm Documented By: ADINA Quetiapine Fumarate (Quetiapine Fumarate 300 Mg Tablet) 300 mg PO BEDTIME [facility] Last Admin: 04/18/23 21:06 Dose: 300 mg Documented By: THERESA Quetiapine Fumarate (Quetiapine Fumarate 50 Mg Tablet) 50 mg PO BID PRN PRN Reason: anxiety/restlessness Scopolamine (Scopolamine 1.5 Mg Patch.Td.3) 1.5 mg EAR-BEHIND Q72H [facility] Last Admin: 04/18/23 17:36 Dose: 1.5 mg Documented By: ADINA Sodium Chloride (0.9 % Sodium Chloride Flush 3 Ml Syringe) 3 ml IVFLUSH QSKSFT [facility] Last Admin: 04/19/23 00:18 Dose: Not Given Documented By: THERESA Non-Admin Reason: No Access Trazodone HCl (Trazodone Hcl 50 Mg Tablet) 50 mg PO BEDTIME MRX1 PRN PRN Reason: Insomnia Last Admin: 04/12/23 20:42 Dose: 50 mg Documented By: KENTON Labs 04/12/23 05:43 04/13/23 07:23 Labs: Laboratory Results - last 24 hr 04/18/23 04/18/23 04/18/23 11:35 16:17 19:50 POC Glucose 258 H 176 H 253 H 04/19/23 07:10 POC Glucose 176 H Assessment and Plan (1) Schizoaffective disorder, bipolar type: Status: Acute (2) Neurodegenerative cognitive impairment: Status: Acute Plan 78F PMH hypertension, hyperlipidemia, hypothyroidism, insulin-dependent type 2 diabetes, recurrent UTI, history of Barbara-Chavez tears, neurocognitive impairment, schizoaffective disorder and bipolar disorder being transferred to hospitalist service from [facility] where she had been admitted for increased agitation for evaluation and management of coffee ground emesis schizoaffective disorder/cognitive impairment continue Depakote, hydroxyzine, trazodone per psych team recommendations care team feels patient can be discharged home w resumed outpatient care ambulated well in hallway Monitor status with current psych rec Hematemesis no further episodes, stable H&H GI, likely 2/2 MWT vs esophagitis, no need for intervention change ppi to PO dysphagia AUDIO PRODUCTION MANAGER recommending advanced diet monitor diabetes hold metformin insulin hypothyroidism levothyroxine HLD statin DVT prophylaxis- SCPs due to hematemsis Full code reason for continued hospitalization: pending safe discharge plan Time Spent With Patient Time: Total time managing care of this patient today ____ minutes. Quality Stroke Does the patient have a stroke diagnosis?: No VTE Prior VTE?: No VTE Risk Level:: Medical - moderate - high VTE Device Contraindication: N/A - Device Ordered VTE Drug Contraindication: Treatment Not Indicated
[2023-04-19] MEDS: Insulin Lispro 100 UNIT/ML 3 ML VIAL SUBCUT ×4 (09:05→20:51)
[2023-04-19] MEDS: polyethylene glycoL 3350 17 GM POWD.PACK PO (09:06)
[2023-04-19] MEDS: amLODIPine Besylate 5 MG TABLET PO (09:06)
[2023-04-19] MEDS: Docusate Sodium 100 MG CAPSULE PO ×2 (09:06→20:39)
[2023-04-19] MEDS: Ascorbic Acid 500 MG TABLET PO ×2 (09:06→20:39)
[2023-04-19] MEDS: Atorvastatin Calcium 20 MG TABLET PO (09:07)
[2023-04-19 10:56] LABS: Glucose, Whole Blood 345 mg/dL (60-115)
--- NOTE | 2023-04-19 11:07 | MHC.CM.PN ---
[facility], THEY WERE UPDATED ON PLAN AND ANTIC D/C TOMORROW. CM RECEIVED CALL FROM MEGAN AT [facility] AND SHE IS AGREEABLE TO D/C PLAN TOMORROW ONCE THEY RECEIVE INTENT TO ADMIT. CM WILL CONT TO FOLLOW D/C NEEDS.
--- NOTE | 2023-04-19 14:28 | MHC.SL.SWA ---
Speech Pathologist Impression: Risk of aspiration d/t reduced cognitive status Risk of Aspiration Due to: Neurological Condition Reduced Cognition Dysphasia Diet Status: UPGRADE to REGULAR solids Liquid Consistency and Strategies for Safe Swallow: Liquid Intake Recommendation: Thin Liquid Intake Strategies: Small Sips Solid Food Consistency: Dietary Recommendations: Regular Additional Modifications to Solid Foods: DIRECTOR OF DIVERSITY AND INCLUSION recommending upgrade to REGULAR Solids and maintain Thin Liquids. Keep close 1:1 supervision with this upgrade today. Meds can be tried Whole with Thin Liquids or Puree medium, as tolerated. Maintain aspiration precautions. DIRECTOR OF DIVERSITY AND INCLUSION to f/u 1-2x. Oral Medication Intake: Whole with Puree or Liquid per pt's tolerance Please contact the pharmacy regarding appropriate crushable or liquid drug formulations that are available whenever modified delivery is recommended. Compensatory Strategies and Precautions to be Taken for Safe Swallow: Sitting Upright (90 deg) Double Swallow Small Bites and Sips Rate of Ingestion Change Oral Check Avoid Specific Foods Supervision While Eating and Drinking for Safe Swallow: Total Supervision (1:1) Foods to Avoid: Spicy, acidic foods Swallowing Recommended Treatments: Compens. Strategy Educat. Recommendation for Speech: 1-2 f/u [employer] Wafers Etch Operator Clinican/Clinical Fellow: No Supervisory Statement: I have reviewed and agree with the student/clinical fellow's documentation: N/A Speech Language Pathologist: Rossana Pink M.A., [facility]-DIRECTOR OF DIVERSITY AND INCLUSION
--- NOTE | 2023-04-19 15:32 | PC.NURSE ---
Patient A&O x1, self. Follows commands, calm and cooperative with care. RA lungs clear. Nonpiting Edema BL ankles. Incontinent of stool/urine purewick placed. Ambulating with a walker/1 assist.
[2023-04-19 17:00] LABS: Glucose, Whole Blood 192 mg/dL (60-115)
[2023-04-19] MEDS: Pseudoephedrine HCL 30 MG TABLET PO (17:11)
[2023-04-19] MEDS: Divalproex Sodium ER 500 MG TAB.ER.24H 1000 MG PO (20:39)
[2023-04-19] MEDS: QUEtiapine Fumarate 300 MG TABLET PO (20:39)
[2023-04-19] MEDS: Doxazosin Mesylate 2 MG TABLET PO (20:39)
[2023-04-19 20:50] LABS: Glucose, Whole Blood 206 mg/dL (60-115)
[2023-04-20 03:16] VITALS: BP 141/62; PULSE 72; RESP 18; TEMP 36.4; O2SAT 97
[2023-04-20] MEDS: Levothyroxine Sodium 25 MCG TABLET PO (05:43)
[2023-04-20] MEDS: Omeprazole 40 MG CAPSULE.DR PO ×2 (05:43→16:54)
[2023-04-20 07:19] LABS: Glucose, Whole Blood 258 mg/dL (60-115)
[2023-04-20 07:27] VITALS: BP 154/67; PULSE 75; RESP 20; TEMP 36.6; O2SAT 98
--- NOTE | 2023-04-20 08:42 | P.PNIM_ITS ---
Subjective Subjective Date of Service: 04/20/23 Interval History: no complaints Physical Exam Vital Signs: Vital Signs: Last Vital Signs Temp 98 F 04/20/23 07:27 Pulse 75 04/20/23 07:27 Resp 20 04/20/23 07:27 BP 154/67 H 04/20/23 07:27 Pulse Ox 98 04/20/23 07:27 O2 Del Method Room Air 04/20/23 07:27 BMI result Body Mass Index 26.2 Const: Other: Constitutional : Awake, interactive, not in distress, sweetly confused Neck : Normal inspection, Supple Cardiovascular : RRR, no JVP, no lower extremity edema Respiratory : good bilateral air entry, no crackles, wheezes or rhonchi Gastrointestinal: soft, lax, Normal bowel sounds, Non tender Skin : Warm, Dry Neurological : Alert & unable to assess orientation, not able to answer or communicate verbally, moving all extremities and speak unclear sentences Objective Data Active Medications Acetaminophen (Acetaminophen 325 Mg Tablet) 650 mg PO Q6H PRN PRN Reason: Pain, Mild (Pain Scale 1-3) Amlodipine Besylate (Amlodipine Besylate 5 Mg Tablet) 5 mg PO DAILY [facility]; Protocol Last Admin: 04/19/23 09:06 Dose: 5 mg Documented By: MICHAEL Ascorbic Acid (Ascorbic Acid 500 Mg Tablet) 500 mg PO BID [facility] Last Admin: 04/19/23 20:39 Dose: 500 mg Documented By: NAYELI Atorvastatin Calcium (Atorvastatin Calcium 20 Mg Tablet) 20 mg PO DAILY [facility] Last Admin: 04/19/23 09:07 Dose: 20 mg Documented By: MICHAEL Calcium Carbonate (Calcium Carbonate 750 Mg Tab.Chew) 500 mg PO Q6H PRN PRN Reason: Heartburn Dextrose (Dextrose 50 % 25 Gm/50 Ml Syringe) 25 gm IVPUSH Q15M PRN; Protocol PRN Reason: per Hypoglycemia Standing Ord. Divalproex Sodium (Divalproex Sodium Er 500 Mg Tab.Er.24h) 1,000 mg PO BEDTIME [facility] Last Admin: 04/19/23 20:39 Dose: 1,000 mg Documented By: NAYELI Docusate Sodium (Docusate Sodium 100 Mg Capsule) 100 mg PO BID [facility] Last Admin: 04/19/23 20:39 Dose: 100 mg Documented By: NAYELI Doxazosin Mesylate (Doxazosin Mesylate 2 Mg Tablet) 2 mg PO BEDTIME [facility]; Protocol Last Admin: 04/19/23 20:39 Dose: 2 mg Documented By: NAYELI Glucose (Glucose Gel 15 Gm Gel..Gram.) 15 gm PO Q15M PRN; Protocol PRN Reason: per Hypoglycemia Standing Ord. Guaifenesin (Guaifenesin 200 Mg/10 Ml 10 Ml Liquid) 10 ml PO Q6H PRN PRN Reason: Cough Hydroxyzine HCl (Hydroxyzine Hcl 25 Mg Tablet) 25 mg PO Q6H PRN PRN Reason: Anxiety Last Admin: 04/13/23 06:21 Dose: 25 mg Documented By: NETTA Insulin Human Lispro (Insulin Lispro 100 Unit/Ml 3 Ml Vial) 0 unit SUBCUT QIDACHS [facility]; Protocol Last Admin: 04/19/23 20:51 Dose: 4 unit Documented By: NAYELI Levothyroxine Sodium (Levothyroxine Sodium 25 Mcg Tablet) 25 mcg PO DAILY@0600 [facility] Last Admin: 04/20/23 05:43 Dose: 25 mcg Documented By: NAYELI Omeprazole (Omeprazole 40 Mg Capsule.Dr) 40 mg PO BID@0630,1630 [facility] Last Admin: 04/20/23 05:43 Dose: 40 mg Documented By: NAYELI Ondansetron HCl (Ondansetron Hcl 4 Mg/2 Ml Vial) 4 mg IVPUSH Q8H PRN PRN Reason: Nausea and Vomiting Pharmacy Consult (Consult Rx Perform Med Rec) 1 each MISCELLANE ONCE PRN PRN Reason: Consult order Polyethylene Glycol (Polyethylene Glycol 3350 17 Gm Powd.Pack) 17 gm PO DAILY [facility] Last Admin: 04/19/23 09:06 Dose: 17 gm Documented By: CTORRQamar Quetiapine Fumarate (Quetiapine Fumarate 300 Mg Tablet) 300 mg PO BEDTIME [facility] Last Admin: 04/19/23 20:39 Dose: 300 mg Documented By: NAYELI Quetiapine Fumarate (Quetiapine Fumarate 50 Mg Tablet) 50 mg PO BID PRN PRN Reason: anxiety/restlessness Scopolamine (Scopolamine 1.5 Mg Patch.Td.3) 1.5 mg EAR-BEHIND Q72H [facility] Last Admin: 04/18/23 17:36 Dose: 1.5 mg Documented By: ADINA Sodium Chloride (0.9 % Sodium Chloride Flush 3 Ml Syringe) 3 ml IVFLUSH QSHIFT [facility] Last Admin: 04/20/23 00:35 Dose: 3 ml Documented By: NAYELI Trazodone HCl (Trazodone Hcl 50 Mg Tablet) 50 mg PO BEDTIME MRX1 PRN PRN Reason: Insomnia Last Admin: 04/12/23 20:42 Dose: 50 mg Documented By: KENTON Labs 04/12/23 05:43 04/13/23 07:23 Labs: Laboratory Results - last 24 hr 04/19/23 04/19/23 04/19/23 10:52 16:56 20:40 POC Glucose 345 H 192 H 206 H 04/20/23 07:11 POC Glucose 258 H Assessment and Plan (1) Schizoaffective disorder, bipolar type: Status: Acute (2) Neurodegenerative cognitive impairment: Status: Acute Plan 78F PMH hypertension, hyperlipidemia, hypothyroidism, insulin-dependent type 2 diabetes, recurrent UTI, history of Barbara-Chavez tears, neurocognitive impairment, schizoaffective disorder and bipolar disorder being transferred to hospitalist service from [facility] where she had been admitted for increased agitation for evaluation and management of coffee ground emesis schizoaffective disorder/cognitive impairment continue Depakote, hydroxyzine, trazodone per psych team recommendations care team feels patient can be discharged home w resumed outpatient care ambulated well in hallway Monitor status with current psych rec Hematemesis no further episodes, stable H&H GI, likely 2/2 MWT vs esophagitis, no need for intervention change ppi to PO dysphagia SUPERINTENDENT QUARRY recommending advanced diet monitor diabetes hold metformin insulin hypothyroidism levothyroxine HLD statin DVT prophylaxis- SCPs due to hematemsis Full code reason for continued hospitalization: pending safe discharge plan Time Spent With Patient Time: Total time managing care of this patient today ____ minutes. Quality Stroke Does the patient have a stroke diagnosis?: No VTE Prior VTE?: No VTE Risk Level:: Medical - moderate - high VTE Device Contraindication: N/A - Device Ordered VTE Drug Contraindication: Treatment Not Indicated
--- NOTE | 2023-04-20 09:09 | MHC.CM.PN ---
LATE ENTRY NOTE FROM 04/19/23 CM RECEIVED A CALL FROM MEGAN AT [facility] WHO REPORTS PT'S GUARDIAN WILL BE IN TOMORROW 04/20 TO COMPLETE ADMISSION PAPERWORK FOR PT AND WILL PLAN FOR ADMIT ON Mon04/21/23. MEGAN ALSO DISCUSSED REQUESTED PAPERWORK FROM [facility] WHICH WAS SENT AND [facility] CONFIRMED THIS AM 04/20 THAT SHE HAS RECEIVED DOCUMENT AND WILL REVIEW LATER THIS AM. CM WILL CONT TO FOLLOW AND FOLLOW UP W/DDS [facility] OFFICE.
[2023-04-20] MEDS: Insulin Lispro 100 UNIT/ML 3 ML VIAL SUBCUT ×4 (09:24→21:32)
[2023-04-20] MEDS: Atorvastatin Calcium 20 MG TABLET PO (09:24)
[2023-04-20] MEDS: amLODIPine Besylate 5 MG TABLET PO (09:24)
[2023-04-20] MEDS: Ascorbic Acid 500 MG TABLET PO ×2 (09:24→21:32)
[2023-04-20] MEDS: Docusate Sodium 100 MG CAPSULE PO ×2 (09:24→21:32)
[2023-04-20] MEDS: polyethylene glycoL 3350 17 GM POWD.PACK PO (09:38)
--- NOTE | 2023-04-20 10:14 | PC.NURSE ---
This morning pt was A&O x1. Calm and pleasent. Pt did not voice any complaints or appeared to be in any discomfort
[2023-04-20 11:24] VITALS: BP 122/66; PULSE 70; RESP 20; TEMP 36.6; O2SAT 97
[2023-04-20 11:37] LABS: Glucose, Whole Blood 269 mg/dL (60-115)
--- NOTE | 2023-04-20 14:20 | MHC.SL.SWA ---
Speech Pathologist Impression: Risk of Aspiration Due to: Neurological Condition Reduced Cognition Dysphasia Diet Status: Recommend continue on Regular Solids and Thin Liquids. Patient still would benefit from at a minimum periodic supervision during meals to assure that patient can readily access all items on tray and is not spilling food. Discharge patient from Speech services. Please re-contact if additional concerns arise during inpatient stay. Liquid Consistency and Strategies for Safe Swallow: Liquid Intake Recommendation: Thin Liquid Intake Strategies: Small Sips Solid Food Consistency: Dietary Recommendations: Regular Additional Modifications to Solid Foods: Patient is tolerating diet well, now able to feed mostly independently, although she would continue to benefit from at least intermittent supervision to assure that she can readily access all food on tray (e.g. open/set up all containers, check that patient is progressing without spilling food or drink on self). Oral Medication Intake: Whole with Puree Please contact the pharmacy regarding appropriate crushable or liquid drug formulations that are available whenever modified delivery is recommended. Compensatory Strategies and Precautions to be Taken for Safe Swallow: Sitting Upright (90 deg) Double Swallow Small Bites and Sips Rate of Ingestion Change Oral Check Avoid Specific Foods Supervision While Eating and Drinking for Safe Swallow: Total Supervision (1:1) Foods to Avoid: Spicy, acidic foods Swallowing Recommended Treatments: Compens. Strategy Educat. Recommendation for Speech: Further Testing Needed Inpatient Speech Therapy Comment: Patient upgraded yesterday to regular diet with thin liquids, seen today during lunch for toleration of least restrictive diet. Patient was alone in room, with tray on table in front of her, with head of bed elevated. Patient had begun eating a burger which was her main meal, had removed dressing of lettuce, onion and tomato. Patient took bites of burger, commented it's good produced a timely oral phase and timely swallow on several independent bites. Patient then picked up tomato and and took bites with no difficulty on swallow. Drinks and other containers were opened for the patient so that they could be easily accessed. Patient subsequently drank mckayla chava with straw with no difficulty, no clinical signs of aspiration. When patient encouraged to order off the regular menu preferred foods, patient said can I have pizza? Recommend Discharge Patient from Speech at this time as she is on least restrictive diet of Regular with Thin Liquids, pills whole with puree. Patient still would benefit from at a minimum periodic supervision during meals to assure that patient can readily access all items on tray and is not spilling food. . Frequency/Duration: Date Range for Service Req: Timeline to reassess: Program Strategist Clinican/Clinical Fellow: No Supervisory Statement: I have reviewed and agree with the student/clinical fellow's documentation: N/A Speech Language Pathologist: Rosario Gagnon M.A., CCC-DORR OPERATOR
--- NOTE | 2023-04-20 15:07 | MHC.CM.PN ---
CM RECEIVED NOTIFICATION FROM ELLIE CALDERÓN VIA EMAIL PT CAN D/C TOMORROW W/LESS THAN 30DAY, COPY OF EMAIL AND MH FORM FAXED TO [facility] ADMISSIONS LIAISON AT [facility] [phone], CM ALSO SPOKE W/PATRICIA EARLIER TODAY REGARDING PLAN FOR TRANSPORT TOMORROW 04/21 AT 11AM. CM CONTACTED PT'S GUARDIAN YOANA PAULSON [id number] AT NUMBER ON FILE, YOANA REPORTS HE SIGNED AND SENT D/C SUMMARY BACK TO FACILITY, IMM DELIVERED AND WILL BE LEFT AT BEDSIDE PER DISCUSSION. CM CONTACTED MEGAN FROM [facility] AND PLAN WILL BE FOR CM TO FOLLOW UP IN AM TO CONFIRM PRIOR TO D/CING PT AT 11AM. D/C SUMMARY AND MH FORM TO BE FAXED TO [facility] DEPT [phone]
[2023-04-20 15:15] VITALS: BP 128/62; PULSE 72; RESP 18; TEMP 36.4; O2SAT 94
[2023-04-20 16:37] LABS: Glucose, Whole Blood 239 mg/dL (60-115)
[2023-04-20 20:00] VITALS: BP 140/64; PULSE 73; RESP 18; TEMP 36; O2SAT 97
[2023-04-20 20:59] LABS: Glucose, Whole Blood 226 mg/dL (60-115)
[2023-04-20] MEDS: QUEtiapine Fumarate 300 MG TABLET PO (21:32)
[2023-04-20] MEDS: Divalproex Sodium ER 500 MG TAB.ER.24H 1000 MG PO (21:32)
[2023-04-20] MEDS: Doxazosin Mesylate 2 MG TABLET PO (21:32)
[2023-04-20 23:47] VITALS: BP 137/64; PULSE 72; RESP 18; TEMP 36; O2SAT 98
[2023-04-21 03:26] VITALS: BP 147/67; PULSE 71; RESP 18; TEMP 36.1; O2SAT 97
[2023-04-21] MEDS: Levothyroxine Sodium 25 MCG TABLET PO (05:52)
[2023-04-21] MEDS: Omeprazole 40 MG CAPSULE.DR PO (05:52)
[2023-04-21 07:18] LABS: Glucose, Whole Blood 206 mg/dL (60-115)
[2023-04-21 07:20] VITALS: BP 140/64; PULSE 68; RESP 20; TEMP 36.6; O2SAT 96
--- NOTE | 2023-04-21 08:14 | PM.DS ---
DS: Providers Provider Date of Service: 04/21/23 Date of admission: 04/09/23 19:03 Primary care physician: Unknown Physician Consults: 04/09/23 19:02 Consult to Gastroenterology Routine Consulting Provider: Lilian Watts Reason for consultation: UGIB 04/09/23 19:19 Consult for Sitter Routine Reason for consultation: aggitation. Geripsych transer. Consult to Psychiatry Routine Consulting Provider: Psych Covering Reason for consultation: aggitation, schizoaffective d/o, discharge plan. 04/11/23 12:55 Consult to Crisis Stat Reason for consultation: medically cleared, came from inpatient psych 04/12/23 08:43 Consult to Care Team Routine Comment: Reason for consultation: eval for proper placement, medically clear 04/13/23 08:24 Consult to Psychiatry Routine Consulting Provider: Psych Covering Reason for consultation: psychosis, Need of inpatient psych, discharge plan and medications DS: Diagnosis Discharge Diagnosis (1) Schizoaffective disorder, bipolar type: Status: Acute (2) Neurodegenerative cognitive impairment: Status: Acute DS: Summary Hospital Course Hospital Course: Admission note HPI 78-year-old female with history of hypertension, hyperlipidemia, hypothyroidism, insulin-dependent type 2 diabetes, recurrent UTI, history of Barbara-Chavez tears, neurocognitive impairment, schizoaffective disorder and bipolar disorder being transferred to hospitalist service from Geriatric Psychiatry where she had been admitted for increased agitation for evaluation of hematemesis.? Patient was evaluated on geriatric psych earlier today for nausea and vomiting.? Per nursing staff, the patient and her roommate at the time had been arguing, yelling back and forth and patient became diaphoretic, very anxious, and vomited a brown emesis though there was no coffee-ground appearance or bright red blood that time.? There was concern due to the odor of the vomitus that this may have been feculent, but after further evaluation, does not appear to be the case. Abd exam at that time was benign and KUB was negative for obstruction though did show moderate constipation.? She had been intermittently tachycardic during the day with increased agitation/anxiety noted by nursing staff.? She did have additional episode of brown emesis with blood tinge and gastric occult was positive for blood.? She then began coughing and there was concern for aspiration so she was made NPO.? Chest x-ray was negative.? She was given zofran ODT for the N/V and immediately vomiting dark brown/black emesis with tiny smear pink. H/H had been repeat and was stable though increased from baseline. Vitals stable though mildly tachycardic on admission at 101. No hypotension, hypoxia.? No leukocytosis.? H/H 12.5/36.9%.? Renal function baseline, electrolyte levels normal except for calcium 10.9.? POC glucose 229.? Negative for COVID-19. Case discussed with Dr. Westbrook with recommendation for admission to med[facility] for further evaluation and management of UGIB. Case also discussed with Dr. Watts. Hospital course Patient was admitted for hematemesis, likely due to Barbara-Chavez tear versus esophagitis. Was seen by GI who recommended conservative therapy with PPI. EGD was not performed. Patient's hemoglobin remained stable. Patient had no further vomiting. For schizoaffective disorder and cognitive impairment was continue on Depakote, hydroxyzine, trazodone. Was seen by care team feels patient can be discharged to community with presumed outpatient care. She will follow up outpatient with Psychiatry. For dysphagia was seen by [employer] and advanced to regular diet. For diabetes was continue insulin. For hypothyroidism was continue on Synthroid. For hyperlipidemia was continue on statin. she will be discharged to SNF, she is expected to require less than 30 days. Time Spent with Patient Time attestation: Total time managing care of this patient today ____ minutes. Discharge coordination time: Greater than 30 minutes Quality: Safe Use of Opioids Does Pt have an Active Cancer Diagnosis on the Problem List?: No Quality: Stroke Does the patient have a stroke diagnosis?: No Physical Exam Vital Signs: Vital Signs: Last Vital Signs Temp 97.8 F 04/21/23 07:20 Pulse 68 04/21/23 07:20 Resp 20 04/21/23 07:20 BP 140/64 H 04/21/23 07:20 Pulse Ox 96 04/21/23 07:20 O2 Del Method Room Air 04/21/23 07:20 BMI result Body Mass Index 26.2 DS: Data Data Completed and Pending Labs on day of discharge: Laboratory Results - last 24 hr 04/20/23 04/20/23 04/20/23 11:32 16:28 20:49 POC Glucose 269 H 239 H 226 H 04/21/23 07:15 POC Glucose 206 H Discharge Plan Discharge Anticipated Discharge Date/Time: 04/14/23 12:24 Patient Disposition: Xfer Other Discharge Diagnosis: Upper GI bleed Schizoaffective disorder Referrals: Cheyanne Corea [Outside] - 1 Day (SHORT TERM REHAB) Physician,Unknown J [Primary Care Provider] - 1 Week Discharge Medications: New trazodone 50 mg Tablet 50 mg PO BEDTIME MRX1 PRN (Reason: Insomnia) Qty: 30 0RF amlodipine 5 mg Tablet 5 mg PO DAILY Qty: 30 0RF Protocol: Hold for SBP< HOLD for SBP < : 90 omeprazole 40 mg Capsule,Delayed Release(Dr/Ec) 40 mg PO BID@0630,1630 Qty: 60 0RF divalproex 500 mg Tablet Extended Release 24 Hr 1,000 mg PO BEDTIME Qty: 60 0RF doxazosin 2 mg Tablet 2 mg PO BEDTIME Qty: 30 0RF Protocol: Hold for SBP< HOLD for SBP < : 90 quetiapine 50 mg Tablet 50 mg PO BID PRN (Reason: Anxiety/Restlessness) Qty: 60 0RF Continued atorvastatin 20 mg PO DAILY Lactobacillus acidophilus 1 cap PO DAILY Rx Instructions: 1 tab daily Miralax 17 g PO DAILY Rx Instructions: 17 grams daily Tums 500 500 mg PO QID PRN (Reason: Heartburn) acetaminophen 500 mg PO Q6-8H PRN (Reason: Fever Or Pain) ascorbic acid (vitamin C) 500 mg PO BID cholecalciferol (vitamin D3) 2,000 units PO DAILY clonazepam 1 mg PO BEDTIME docusate sodium 100 mg PO BID guaifenesin 200 mg PO Q4-5H PRN (Reason: Cough) levothyroxine tablet 25 mcg PO DAILY methenamine hippurate 1 tab PO BID Rx Instructions: 1 g po BID terazosin 2 mg PO BEDTIME quetiapine [Seroquel] 300 mg Tablet 300 mg PO BEDTIME metformin 1,000 mg Tablet 1,000 mg PO BIDWMEAL Discontinued clonazepam 1 mg PO DAILY PRN (Reason: Anxiety) divalproex 1,000 mg PO BEDTIME Discharge Orders: Discharge Order (Routine); Ordered 04/21/23 Ordered By: Gene Ramon Diet: Regular diet Activity on Discharge: As tolerated Stand Alone Forms: Patient Portal Discharge page Care Plan Goals: Read below Health Concerns: Read below Plan of Treatment: Read below Assessment: Admitted to the hospital for evaluation of vomiting blood. evaluated by hadoop application developer who recommended medical management with acid plumbing mechanic with no evidence of recurrence of bleeding or drop in hemoglobin level. Evaluated by psychiatry team who confirmed current dosage of medications and recommended outpatient follow up. Change diet to mechanical texture Continue Omeprazole for stomach protection Start Amlopidine for high blood pressure Doxazosin for urinary flow and blood pressure Increase Seroquel to 300 mg bedtime and 50 mg as needed twice daily Increase Valproate to 1000 mg daily Trazodone 50 mg as needed for insomnia To follow with outpatient psychiatry team for medications adjustment
[2023-04-21] MEDS: Insulin Lispro 100 UNIT/ML 3 ML VIAL SUBCUT (08:32)
[2023-04-21] MEDS: Docusate Sodium 100 MG CAPSULE PO (08:33)
[2023-04-21] MEDS: Atorvastatin Calcium 20 MG TABLET PO (08:33)
[2023-04-21] MEDS: Ascorbic Acid 500 MG TABLET PO (08:33)
[2023-04-21] MEDS: polyethylene glycoL 3350 17 GM POWD.PACK PO (08:33)
[2023-04-21] MEDS: amLODIPine Besylate 5 MG TABLET PO (08:33)
--- NOTE | 2023-04-21 09:49 | MHC.CM.PN ---
PT MEDICALLY CLEARED FOR D/C TO STR VS LONGTERM AT [facility], CM SPOKE W/[facility] ADMISSIONS LIAISON AT 9:45AM [phone] AND [facility] REPORTS THEY DID NOT RECEIVE MH FORM/EMAIL FROM [facility] OFFICE, CM WILL RESEND MH FORM/EMAIL W/D/C SUMMARY AND TO [phone]. GUARDIAN NOTIFIED AND IMM DELIVERED ON 04/20/23. CM WILL CONTACT PT'S [facility]AR[facility]IVING [facility]GRAM [facility] [phone] AND FAX D/C SUMMARY TO [phone]. S TRANSPORT AT 11AM
--- NOTE | 2023-04-21 11:16 | PC.NURSE ---
attempted to call [facility] to give RN-RN report to receiving RN but there was no answer
== END 2023-04-21 11:03 | disposition other institution (70) | DRG 368 ==
PROVIDERS: Internal Medicine; Student in an Organized Health Care Education/Training Program; Admitting Provider Physician Assistant; PCP Internal Medicine; Visit Provider Internal Medicine
DX: K20.91 Esophagitis, unspecified with bleeding (principal); K22.6 Gastro-esophageal laceration-hemorrhage syndrome; E03.9 Hypothyroidism, unspecified; F06.70 Mild neurocognitive disorder due to known physiological condition without behavioral disturbance; R13.10 Dysphagia, unspecified; E86.0 Dehydration; E83.42 Hypomagnesemia; E78.5 Hyperlipidemia, unspecified; E11.9 Type 2 diabetes mellitus without complications; F25.0 Schizoaffective disorder, bipolar type; Z87.440 Personal history of urinary (tract) infections; Z79.899 Other long term (current) drug therapy
CPT/HCPCS: 36415; 80048; 80164; 81003; 82947; 83735; 85025; 85027; 92526; 92610; J3475

== ENCOUNTER → 2023-04-09 19:03 | Outpatient (BNV) | payer MEDICARE, MEDICAID, SELFPAY | PROVIDERS: Admitting Provider Physician Assistant; Visit Provider Physician Assistant | DX: F25.0 Schizoaffective disorder, bipolar type (principal); G31.9 Degenerative disease of nervous system, unspecified | CPT/HCPCS: 99223; 99231; 99232; 99239 ==

== ENCOUNTER → 2023-04-09 19:03 | Outpatient (BNV) | payer MEDICARE, MEDICAID, SELFPAY | PROVIDERS: Admitting Provider Physician Assistant; Visit Provider Clinical Nurse Specialist Psychiatric/Mental Health, Adult | DX: F25.0 Schizoaffective disorder, bipolar type (principal); G31.9 Degenerative disease of nervous system, unspecified | CPT/HCPCS: 99222 ==